=== PATIENT | male | born 2000 | race Caucasian/White ===

== ENCOUNTER 2022-03-11 15:13 | Emergency (ER) | payer OTHER, SELFPAY ==
--- NOTE | ~2022-03-11 | CT_ITS ---
EXAMINATION: CT brain wo con INDICATION: Transient alteration of awareness, head injury COMPARISON: None TECHNIQUE: Standard unenhanced head CT. The dose-length product (DLP) was 681.00 mGy-cm. The mA was a djusted according to patient size. Iterative reconstruction technique was employed. FINDINGS: There is no intracranial hemorrhage, acute infarction, or abnormal mass lesion. The ventric les are normal. There is no abnormal mass effect or midline shift. The celaya-white matter differentiat ion is normal. The basal cisterns are patent. The orbits are normal. The paranasal sinuses, mastoids and calvarium are normal. IMPRESSION: 1. No acute intracranial abnormality. Reviewed, dictated and finalized at location F.
[2022-03-11 15:18] VITALS: BP 140/109; PULSE 74; RESP 16; TEMP 36.2; O2SAT 100
--- NOTE | 2022-03-11 15:28 | ECG_ITS ---
Measurements Intervals [place] Rate: 77 P: 55 DC: 123 QRS: 93 QRSD: 102 T: 40 QT: 331 QTc: 376 Interpretive Statements SINUS RHYTHM RIGHTWARD AXIS EARLY REPOLARIZATION Electronically Signed On 03-11-2022 15:35:39 CDT by Andres Tobias M.D.
[2022-03-11 15:42] LABS: Basophils Percent Auto 0.3 % (0.2-1.2); Eosinophils Absolute Auto 0.1 K/mm3 (0-0.3); Eosinophils Percent Auto 0.8 % (0-4.4); Hemoglobin 17.1 g/dL (14.0-18.0); Immature Granulocyte Absolute 0.02 K/mm3 (0.00-0.031); Immature Granulocyte Percent A 0.3 % (0-0.5); Lymphocytes Absolute Auto 1.63 K/mm3 (0.9-3.2); Lymphocytes Percent Auto 20.8 % (18.3-44.2); Mean Corpuscular HGB Conc 34.2 g/dl (32-36); Mean Corpuscular Hemoglobin 30.3 pg (26-34); Mean Corpuscular Volume 88.5 fl (80-100); Mean Platelet Volume 9.4 fl (7.4-10.4); Monocytes Absolute Auto 0.5 K/mm3 (0.1-0.6); Monocytes Percent Auto 6.9 % (2.6-8.5); Neutrophils Absolute Auto 5.6 K/mm3 (1.3-6.7); Neutrophils Percent Auto 70.9 % (45.5-73.1); Platelet Count Result 196 k/mm3 (150-375); Red Blood Count 5.65 M/mm3 (4.6-6.20); Red Cell Distribution Width 11.9 % (11.5-14.5); White Blood Count 7.8 K/mm3 (4.5-10.0)
[2022-03-11 15:51] LABS: Alanine Aminotransferase 25 U/L (6-50); Albumin Level 4.9 g/dL (3.5-5.1); Alkaline Phosphatase 58 U/L (38-126); Anion Gap 8 mmol/L (8-16); Aspartate Amino Transferase 25 U/L (17-59); Bilirubin,Total 1.1 mg/dL (0.2-1.3); Blood Urea Nitrogen 22 mg/dL (9-20); Calcium 9.5 mg/dL (8.4-10.2); Carbon Dioxide 30 mmol/L (22-30); Chloride 102 mmol/L (98-107); Estimated CRCL calculation 111 ml/min; Estimated Glomerular Filt Rate > 60; Glucose 99 mg/dL (65-110); Potassium 4.2 mmol/L (3.4-5.0); Sodium 140 mmol/L (137-145)
[2022-03-11 19:14] LABS: Magnesium 1.7 mg/dL (1.6-2.3)
[2022-03-11 19:27] LABS: Troponin I 0.022 ng/mL (0.000-0.034)
[2022-03-11 19:30] LABS: Partial Thromboplastin Time 27.5 SECONDS (22.3-36.8); Prothrombin Time 13.2 Seconds (11.1-14.7)
--- NOTE | 2022-03-11 19:48 | ED.SYNCOPE ---
HPI - Syncope General Chief Complaint: Syncope Stated Complaint: syncope Time Seen by Provider: 03/11/22 18:07 Source: patient and family Mode of arrival: ambulatory Limitations: no limitations History of Present Illness HPI narrative: This is a 21 year old male with history of ADHD and autism who presents for evaluation of synocope. PAtient states he was smoking marijuana yesterday . He states after smoking, he states he woke up face down on the floor. He states he passed out and he woke up this his friends texting him. Patient reports he has headache since this syncopal episode. He states he has smoked many times before and he has never had this problem. He states he had syncopal episode years ago. He denies chest pain, sob, nausea, vomiting, abdominal pain. He went to work today , and his mother states she called to get patient from work. It is reported patient did not look right. He did not pass out today. Review of Systems Review of Systems: All systems reviewed & are unremarkable except as noted in HPI and below Constitutional: Constitutional: Denies chills and Denies fatigue Eyes: Eyes: Denies change in vision and Denies photophobia ENT: Denies nasal congestion and Denies sore throat Cardiovascular: Cardiovascular: Denies chest pain, Denies rapid heart rate and Denies radiating jaw, neck or arm pain Respiratory: Respiratory: Denies chest congestion, Denies cough and Denies dyspnea Gastrointestinal: Gastrointestinal: Denies abdominal pain, Denies bloating, Denies constipation and Denies heartburn Neurologic: Denies dizziness, Reports syncope and Reports headache(s) PMFSH Past Medical History Medical History (Updated 03/11/22 @ 20:50 by Yenni Clayton MD) ADHD Social History Social History (Updated 03/11/22 @ 19:53 by Yenni Clayton MD) Substance use type: marijuana Exam Narrative: GENERAL: Well-appearing, well-nourished, and in no acute distress. HEAD: Normocephalic, atraumatic EYES: PERRLA and EOMI, conjunctiva clear without discharge EARS: TM's clear bilaterally without erythema or dullness NOSE: Nares clear, no rhinorrhea or epistaxis THROAT:Mucous membranes moist, Oropharynx normal without erythema, exudate, peritonsillar swelling or fluctuance NECK: Supple, without lymphadenopathy or mass RESPIRATORY: No respiratory distress, Airway patent, Respirations non-labored, Clear to auscultation without rales, rhonchi or wheeze HEART: Regular rate and rhythm. No murmur heard. Normal peripheral pulses. ABDOMEN: Soft, nontender, nondistended, normal active bowel sounds. No masses. No rebound or guarding, No organomegaly. EXTREMITIES: No edema, normal strength with full range of motion. SKIN: Warm, dry, normal color without rash NEURO: Alert and oriented x3. CN 2-12 grossly intact. No focal deficits. PSYCH: Normal mood and affect. Course Reevaluation(s) Reevaluation #1: I Discussed with patient that labs and imaging are unremarkable. Drug screen s hows cannabis as expected. I discussed it will not show all drugs. Patient has mild headache from hitting head. He is stable for discharge. Date: 03/11/22 Time: 20:47 Vital Signs Vital signs: Vital Signs Temperature 97.2 F L 03/11/22 15:18 Pulse Rate 74 03/11/22 15:18 Respiratory Rate 16 03/11/22 15:18 Blood Pressure 140/109 H 03/11/22 15:18 Pulse Oximetry 100 03/11/22 15:18 Oxygen Delivery Room Air 03/11/22 15:18 Temperature 97.2 F L 03/11/22 15:18 Pulse Rate 64 03/11/22 21:08 Respiratory Rate 18 03/11/22 21:08 Blood Pressure 123/78 03/11/22 21:08 Pulse Oximetry 98 03/11/22 21:08 Oxygen Delivery Room Air 03/11/22 15:18 MDM - Syncope Lab Data Attestation: I reviewed the patient's lab results. Result diagrams: 03/11/22 15:32 03/11/22 15:32 Labs: Lab Results 03/11/22 03/11/22 03/11/22 Range/Units 15:32 15:32 15:32 WBC 7.8 (4.5-10.0) K/mm3
[2022-03-11 20:06] LABS: Amphetamine Screen Urine Negative (Negative); Barbiturate Screen Urine Negative (Negative); Benzodiazepines Screen Urine Negative (Negative); Cannabinoid Screen Urine Positive (Negative); Cocaine Screen Urine Negative (Negative); Methadone Screen Urine Negative (Negative); Opiate Screen Urine Negative (Negative); Phencyclidine Screen Urine Negative (Negative)
[2022-03-11 20:11] LABS: Appearance Urine Clear (Clear); Bilirubin Urine Negative (Negative); Blood Urine Negative (Negative); Glucose Urine UA Negative (Negative); Ketones Urine Negative (Negative); Leukocyte Esterase Ur Negative LEU/UL (Negative); Nitrate Urine Negative (Negative); Protein Urine Negative (Negative); Specific Grav Ur <= 1.005 (1.001-1.035); Urobilinogen Urine 0.2 mg/dL (<2.0); pH Urine 6.5 (5.0-9.0)
[2022-03-11 20:12] LABS: Add Urine Microscopic? NO; Color Urine Light Yellow (Yellow)
[2022-03-11 20:24] LABS: D Dimer < 0.27 ug/mL (<0.48)
[2022-03-11 20:35] VITALS: BP 129/74; PULSE 59
[2022-03-11 20:36] VITALS: BP 147/89; PULSE 67
[2022-03-11 20:37] VITALS: BP 132/85; PULSE 77
[2022-03-11 21:08] VITALS: BP 123/78; PULSE 64; RESP 18; O2SAT 98
== END 2022-03-11 21:07 | disposition home or self-care (01) ==
PROVIDERS: Emergency Medicine; Emergency Provider General Practice
DX: R55 Syncope and collapse (principal); S09.90XA Unspecified injury of head, initial encounter; F12.10 Cannabis abuse, uncomplicated; F90.9 Attention-deficit hyperactivity disorder, unspecified type; F84.0 Autistic disorder; W18.39XA Other fall on same level, initial encounter
CPT/HCPCS: 36415; 70450; 80053; 80307; 81003; 83735; 84484; 85025; 85380; 85610; 85730; 93005; 99284

== ENCOUNTER 2023-05-17 19:02 | Emergency (ER) | payer OTHER, SELFPAY ==
--- NOTE | ~2023-05-17 | XR_ITS ---
EXAMINATION: XR chest 1V portable Exam Date/Time: 05/17/2023 19:50 CDT HISTORY: cough- pt sts generalized pain to whole body Comparison: None. RESULT: Lines, tubes, and devices: None. Lungs and pleura: Clear. Cardiomediastinal silhouette: Normal. Other: No acute osseous or upper abdominal finding. IMPRESSION: No acute cardiopulmonary process. Reviewed, dictated and finalized at location K.
[2023-05-17 19:04] VITALS: BP 147/86; PULSE 91; RESP 20; TEMP 36.9; O2SAT 100
--- NOTE | 2023-05-17 19:54 | ED.FEVER ---
HPI - Fever General Chief Complaint: Fever Stated Complaint: fever, neck pain Time Seen by Provider: 05/17/23 19:26 Source: patient and RN notes reviewed Mode of arrival: ambulatory Limitations: no limitations History of Present Illness HPI Narrative: This is a 22 year old male who presents for evaluation of fever. Patient reports starting yesterday he has been having chills, subjective fever. He also reports sore throat, cough, congestion. He has body aches. He reports his boss has been coughing and has URI symptoms, but he has not gone for evaluation. PAtient has not been taking any medication for his symptoms. Related Data Allergies Allergy/AdvReac Type Severity Reaction Status Date / Time No Known Allergies Allergy Verified 05/17/23 20:16 Review of Systems Constitutional: Constitutional: Reports chills, Reports fever(s) (subjective) and Denies weakness ENT: Reports sore throat Cardiovascular: Cardiovascular: Denies syncope, Denies rapid heart rate, Denies irregular heart rhythm, Denies leg edema and Denies dyspnea Respiratory: Respiratory: Reports chest congestion, Reports cough, Denies hemoptysis, Denies excessive phlegm production and Denies dyspnea Gastrointestinal: Gastrointestinal: Denies abdominal pain, Denies hematochezia, Denies diarrhea and Denies vomiting Genitourinary: Genitourinary: Denies hematuria, Denies dysuria, Denies penile discharge and Denies testicular pain Musculoskeletal: Musculoskeletal: Reports myalgias, Denies joint swelling, Denies loss of height and Denies muscle weakness Neurologic: Denies syncope, Denies focal weakness and Denies weakness PMFSH Past Medical History Medical History ADHD Social History Social History Substance use type: marijuana Exam Const: General: no acute distress and alert Nutritional Appearance: well nourished Orientation/consciousness: patient oriented x3 Limitations: no limitations Other: appears to feel unwell HENMT: Head: normal to inspection Ears: external ears normal and TM's normal bilaterally Face/Nose/Sinus: Normal external nose present Face and sinus: normal facial exam and sinuses nontender Mouth: Yes Normal oral and palatal mucosa present, Yes lip normal and Yes moist mucous membranes Teeth and gingiva: dentition normal Throat: posterior oropharynx normal and uvula midline Eyes: Pupils: Equal, round and reactive pupils present EOM: EOMs intact bilaterally Neck: Neck: normal visual inspection Chest: Chest palpation & inspection: normal inspection of the chest Resp: Effort & Inspection: normal respiratory effort Auscultation: clear to auscultation bilaterally Cardio: Rate: regular rate Rhythm: regular rhythm Heart sounds: no murmurs GI: GI Palp: Yes Soft to palpation, No Tenderness to palpation present (GI), No Guarding due to palpation present (GI) and No Rigid due to palpation Auscultation: normal bowel sounds Skin: General skin exam: normal color Rashes: no rashes Wounds: no wounds Neuro: General: patient oriented x3, moves all extremities and CN's II-XI intact bilaterally Extrem: General: normal to inspection Psych: Appearance: grossly normal Mental Status: mental status grossly normal Affect: normal affect Attitude: cooperative Course Reevaluation(s) Reevaluation #1: I discussed with patient that he was found to be COVID + . I Discussed symptom management. He would like prescription for paxlovid. Date: 05/17/23 Time: 20:54 Vital Signs Vital signs: Vital Signs Temperature 98.4 F 05/17/23 19:04 Pulse Rate 91 05/17/23 19:04 Respiratory Rate 20 05/17/23 19:04 Blood Pressure 147/86 H 05/17/23 19:04 Pulse Oximetry 100 05/17/23 19:04 Oxygen Delivery Room Air 05/17/23 19:04 Temperature 98.4 F 05/17/23 19:04 Pulse Rate 91 05/17/23 19:04 Respiratory Rate 20
[2023-05-17 20:09] LABS: Influenza A QL RT-PCR Negative (Negative); Influenza B QL RT-PCR Negative (Negative); SARS-CoV-2 RNA PCR Positive (Negative)
[2023-05-17] MEDS: KETOROLAC (*BKC) 60 MG/2 ML VIAL IM (20:16)
[2023-05-17] MEDS: Please add drug allergy info to patient profile. 1 EACH XX (20:16)
[2023-05-17 20:48] LABS: Strep Group A RT-PCR NOT DETECTED (Negative)
== END 2023-05-17 21:31 | disposition home or self-care (01) ==
PROVIDERS: Student in an Organized Health Care Education/Training Program; Emergency Provider General Practice
DX: U07.1 COVID-19 (principal)
CPT/HCPCS: 71045; 87636; 87651; 96372; 99283; J1885

== ENCOUNTER 2023-11-23 17:34 | Emergency (ER) | payer OTHER, SELFPAY ==
[2023-11-23 17:39] VITALS: BP 130/87; PULSE 100; RESP 20; TEMP 36.5; O2SAT 100
--- NOTE | 2023-11-23 21:44 | PC.NURSE ---
Pt's name was called twice to be taken back to a room and did not show up.
== END 2023-11-23 21:57 | disposition left against medical advice (07) ==
LOC: ANHED 21:47
DX: R51.9 Headache, unspecified (principal)
CPT/HCPCS: 99199

== ENCOUNTER 2023-12-16 11:59 | Emergency (ER) | payer OTHER, SELFPAY ==
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
[2023-12-16 12:05] VITALS: BP 143/88; PULSE 73; RESP 16; TEMP 36.4; O2SAT 100
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
[2023-12-16] MEDS: ACETAMINOPHEN 325 MG TABLET 650 MG PO (13:17)
[2023-12-16] MEDS: HYDROcodone/acetaminophen (*CRX) 5-325 MG TABLET 1 TAB PO (13:17)
--- NOTE | 2023-12-16 14:51 | PC.NURSE ---
Incentive spirometer educated by RT
== END 2023-12-16 14:57 | disposition home or self-care (01) ==
PROVIDERS: Emergency Provider Student in an Organized Health Care Education/Training Program
DX: S22.32XA Fracture of one rib, left side, initial encounter for closed fracture (principal); V43.53XA Car driver injured in collision with pick-up truck in traffic accident, initial encounter; Y92.411 Interstate highway as the place of occurrence of the external cause
CPT/HCPCS: 71100; 73030; 73610; 99284; A9270

== ENCOUNTER 2024-03-04 22:19 | Emergency (ER) | payer OTHER, SELFPAY ==
[2024-03-04] VITALS (8 sets, daily range): BP systolic 121–130; BP diastolic 76–78; PULSE 53–81; RESP 12–24; O2SAT 95–100
--- NOTE | ~2024-03-04 | XR_ITS ---
EXAMINATION: XR chest 2V DATE: 03/04/2024 22:41 INDICATION: Chest pain. Anxiety. TECHNIQUE: Frontal and lateral views of the chest were obtained. COMPARISON: Chest single view 05/17/2023 FINDINGS: There is no pneumonia, pleural effusion, or pneumothorax. The heart size is normal. IMPRESSION: 1. No acute cardiopulmonary disease. Reviewed, dictated and finalized at location E.
--- NOTE | 2024-03-04 22:27 | ECG_ITS ---
SEE SCANNED COPY FOR CONFIRMED REPORT MTDD
[2024-03-04 22:37] LABS: Basophils Percent Auto 0.6 % (0.2-1.2); Eosinophils Absolute Auto 0.1 K/mm3 (0-0.3); Eosinophils Percent Auto 2.3 % (0-4.4); Hematocrit 45.3 % (42.0-52.0); Hemoglobin 16.4 g/dL (14.0-18.0); Immature Granulocyte Absolute 0.01 K/mm3 (0.00-0.031); Immature Granulocyte Percent A 0.2 % (0-0.5); Lymphocytes Absolute Auto 1.78 K/mm3 (0.9-3.2); Mean Corpuscular HGB Conc 36.2 g/dl (32-36); Mean Corpuscular Hemoglobin 31.8 pg (26-34); Mean Platelet Volume 9.7 fl (7.4-10.4); Monocytes Absolute Auto 0.4 K/mm3 (0.1-0.6); Monocytes Percent Auto 8.2 % (2.6-8.5); Neutrophils Absolute Auto 2.9 K/mm3 (1.3-6.7); Neutrophils Percent Auto 54.7 % (45.5-73.1); Platelet Count Result 223 k/mm3 (150-375); Red Blood Count 5.15 M/mm3 (4.6-6.20); Red Cell Distribution Width 11.7 % (11.5-14.5); White Blood Count 5.2 K/mm3 (4.5-10.0)
[2024-03-04 22:48] LABS: Prothrombin Time 13.9 Seconds (11.1-14.7)
[2024-03-04 22:49] LABS: Partial Thromboplastin Time 28.1 Seconds (22.3-36.8)
[2024-03-04 22:53] LABS: Alanine Aminotransferase 18 U/L (6-50); Albumin Level 4.5 g/dL (3.5-5.1); Alkaline Phosphatase 40 U/L (38-126); Anion Gap 6 mmol/L (4-12); Aspartate Amino Transferase 21 U/L (17-59); Bilirubin,Total 2.2 mg/dL (0.2-1.3); Blood Urea Nitrogen 11 mg/dL (9-20); Calcium 9.6 mg/dL (8.4-10.2); Carbon Dioxide 27 mmol/L (22-30); Chloride 106 mmol/L (98-107); Estimated CRCL calculation 100 ml/min; Estimated Glomerular Filt Rate > 60; Glucose 92 mg/dL (65-110); Lipase 82 U/L (23-300); Potassium 3.7 mmol/L (3.4-5.0); Sodium 139 mmol/L (137-145)
[2024-03-04 23:05] LABS: Troponin I 0.018 ng/mL (0.000-0.034)
--- NOTE | 2024-03-04 23:23 | PC.NURSE ---
2314 Patients mother Ivy calls to inform this RN that the patient has a seeking problem. That he has a problem abusing muscle relaxers, pain pills and alcohol. I have been trying to get him into rehab but he won't go. This RN notified ERP of patients mothers statements. Patients mother also states he has gone to [facility] as well for those medications in the past.
[2024-03-04 23:46] LABS: Influenza A QL RT-PCR Negative (Negative); Influenza B QL RT-PCR Negative (Negative); RSV RNA, RT-PCR Negative (Negative); SARS-CoV-2 RNA PCR Negative (Negative)
[2024-03-04 23:50] LABS: Appearance Urine Clear (Clear); Bilirubin Urine Negative (Negative); Blood Urine Negative (Negative); Color Urine Yellow (Yellow); Glucose Urine UA Negative (Negative); Ketones Urine Negative (Negative); Leukocyte Esterase Ur Negative LEU/UL (Negative); Nitrate Urine Negative (Negative); Protein Urine Negative (Negative); Specific Grav Ur 1.005 (1.001-1.035); pH Urine 6.5 (5.0-9.0)
[2024-03-04 23:52] LABS: Add Urine Microscopic? NO
[2024-03-05] VITALS (13 sets, daily range): BP systolic 124–132; BP diastolic 74–86; PULSE 46–63; RESP 17–24; O2SAT 97–99
[2024-03-05 00:06] LABS: Barbiturate Screen Urine Negative (Negative); Benzodiazepines Screen Urine Negative (Negative)
[2024-03-05 00:10] LABS: Cannabinoid Screen Urine Positive (Negative); Cocaine Screen Urine Negative (Negative); Methadone Screen Urine Negative (Negative); Opiate Screen Urine Negative (Negative); Phencyclidine Screen Urine Negative (Negative)
[2024-03-05] MEDS: BELLADONNA ALK/PHENOB ELIX 10 ML, MAG HYDROX/ALUMINUM HYD/SIMETH 30 ML, LIDOCAINE HCL 2... PO (00:17)
[2024-03-05 00:46] LABS: Amphetamine Screen Urine Positive (Negative)
[2024-03-05 01:02] LABS: D Dimer < 0.27 ug/mL (<0.48)
[2024-03-05 01:16] LABS: Creatine Kinase 157 U/L (55-170)
--- NOTE | 2024-03-05 01:33 | PC.NURSE ---
Patient's mother Ivy calls to give information that we went through his car and he had either meth or crack or cocaine. I had the police come get it. ERP notified.
--- NOTE | 2024-03-05 01:44 | ED.CHESTPAIN ---
HPI - Chest Pain General Chief Complaint: Chest Pain Stated Complaint: abnormal Time Seen by Provider: 03/04/24 22:23 Source: patient and family Mode of arrival: ambulatory Limitations: no limitations History of Present Illness HPI narrative: Patient is a 23-year-old male who presents the ED with multiple complaints. Patient speaking rapidly and difficult to follow conversation. He complains of pain to his left mid chest that began and approximately 4 hours prior to his arrival. No aggravating or relieving factors the pain. No history of cardiac issues. He also reports having pain in his left upper abdomen, described as though his stomach feels empty. He does state that he has not eaten anything today. He further complains of shortness of breath, occasionally worse with exertion but states he took a 2 mi walk earlier today and he did not feel short of breath at that time. He endorses palpitations and feeling as though his heart is racing, weakness, general malaise, anxiety. He does have history of anxiety and states he has been off of his medications for the past 2 years. Unclear why. Denies SI or HI. Denies fevers, cough or cold sx's, BLE pain or swelling. Patient's mother has contacted the ED twice. She informed ED nurse that patient frequents hospitals and has exhibited drug-seeking behavior in the past. She has notified several hospitals of this, stating he will attempt to obtain pain medication, muscle relaxers, anxiety medication. Mother later called to inform ED nurse that she found a bag of drug-like powder/substance found in patient's car and she notified police of this. Police believed to the bag to contain methamphetamines. Related Data Allergies Allergy/AdvReac Type Severity Reaction Status Date / Time No Known Allergies Allergy Verified 05/17/23 20:16 Review of Systems Review of Systems: CONSTITUTIONAL: Denies fever, chills, or sweats. ENT: Denies rhinorrhea, congestion, sore throat. CARDIOVASCULAR: See HPI. RESPIRATORY: See HPI. GASTROINTESTINAL: See HPI NEUROLOGIC: Denies headache, dizziness, numbness, or weakness. PSYCHIATRIC: See HPI All systems reviewed & are unremarkable except as noted in HPI and below PMFSH Past Medical History Medical History ADHD Autism Wears glasses Social History Social History Substance use type: marijuana Exam Narrative: GENERAL: Anxious appearing, well-nourished, non-toxic, in no acute distress. HEAD: Normocephalic, atraumatic. RESPIRATORY: Airway patent, respirations nonlabored. Clear to auscultation bilaterally, no rales, rhonchi, wheezing. CARDIOVASCULAR: Regular rate and rhythm without murmurs, rubs, or gallops. ABDOMINAL: Soft, no significant focal tenderness. Nondistended. Normoactive BS. MUSCULOSKELETAL: Moves all extremities. No gross deformities. No lower extremity edema. No calf tenderness. SKIN: Warm, dry, normal color. NEURO: A&O X3. Speech clear. Cranial nerves II-XII grossly intact. Steady gait. No ataxic movements. PSYCHIATRIC: Anxious, rapid pressured speech, tangential thoughts. Course Vital Signs Vital signs: Vital Signs Pulse Rate 76 03/04/24 22:22 Respiratory Rate 15 03/04/24 22:22 Blood Pressure 130/76 03/04/24 22:22 Pulse Oximetry 97 03/04/24 22:22 Oxygen Delivery Room Air 03/04/24 22:22 Pulse Rate 56 L 03/05/24 00:45 Respiratory Rate 22 H 03/05/24 00:45 Blood Pressure 121/78 03/04/24 23:28 Pulse Oximetry 98 03/05/24 00:45 Oxygen Delivery Room Air 03/05/24 00:19 MDM - Chest Pain MDM Narrative Medical decision making narrative: Patient presented to ED with multiple complaints, chest pain, abdominal pain, generalized weakness, palpitations. Patient anxious appearing, rapid pressured speech. Exam fairly unremarkable. No significant tenderness throughout abdomen. VSS. N
[2024-03-05 02:04] LABS: Troponin I 0.017 ng/mL (0.000-0.034)
== END 2024-03-05 02:44 | disposition home or self-care (01) ==
PROVIDERS: Student in an Organized Health Care Education/Training Program; Emergency Provider Physician Assistant
DX: R07.89 Other chest pain (principal); R00.2 Palpitations; F15.10 Other stimulant abuse, uncomplicated; Z20.822 Contact with and (suspected) exposure to COVID-19; F84.0 Autistic disorder
CPT/HCPCS: 36415; 71046; 80053; 80307; 81003; 82550; 83690; 83735; 84484; 85025; 85380; 85610; 85730; 87637; 93005; 99284; A9270

== ENCOUNTER 2024-07-08 15:17 | Emergency (ER) | payer SELFPAY ==
[2024-07-08 15:11] VITALS: BP 114/72; PULSE 92; RESP 20; TEMP 36.3; O2SAT 99
[2024-07-08 15:52] LABS: Basophils Percent Auto 0.5 % (0.2-1.2); Eosinophils Absolute Auto 0.1 K/mm3 (0-0.3); Eosinophils Percent Auto 2.1 % (0-4.4); Hematocrit 44.6 % (42.0-52.0); Hemoglobin 15.9 g/dL (14.0-18.0); Immature Granulocyte Absolute 0.01 K/mm3 (0.00-0.031); Immature Granulocyte Percent A 0.2 % (0-0.5); Lymphocytes Absolute Auto 1.66 K/mm3 (0.9-3.2); Lymphocytes Percent Auto 26.9 % (18.3-44.2); Mean Corpuscular HGB Conc 35.7 g/dl (32-36); Mean Corpuscular Hemoglobin 31.9 pg (26-34); Mean Corpuscular Volume 89.6 fl (80-100); Mean Platelet Volume 9.8 fl (7.4-10.4); Monocytes Absolute Auto 0.6 K/mm3 (0.1-0.6); Monocytes Percent Auto 9.1 % (2.6-8.5); Neutrophils Absolute Auto 3.8 K/mm3 (1.3-6.7); Neutrophils Percent Auto 61.2 % (45.5-73.1); Platelet Count Result 204 k/mm3 (150-375); Red Blood Count 4.98 M/mm3 (4.6-6.20); Red Cell Distribution Width 11.8 % (11.5-14.5); White Blood Count 6.2 K/mm3 (4.5-10.0)
[2024-07-08 15:54] LABS: Add Urine Microscopic? YES; Appearance Urine Clear (Clear); Bacteria Urine None Seen /hpf; Bilirubin Urine Negative (Negative); Blood Urine Negative (Negative); Color Urine Yellow (Yellow); Glucose Urine UA Negative (Negative); Ketones Urine Trace mg/dL (Negative); Leukocyte Esterase Ur Negative LEU/UL (Negative); Nitrate Urine Negative (Negative); Non Pathogenic Casts 0-2; Protein Urine Trace mg/dL (Negative); RBC Urine 0-2 /hpf (0-2); Specific Grav Ur 1.025 (1.001-1.035); Squamous Epithelial Cell Urine None Seen /hpf (Few); WBC Urine 0-5 /hpf (0-3)
[2024-07-08 15:59] LABS: Ethanol < 10 mg/dL (<10)
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
[2024-07-08 16:07] LABS: Alanine Aminotransferase 19 U/L (6-50); Albumin Level 4.6 g/dL (3.5-5.1); Alkaline Phosphatase 41 U/L (38-126); Anion Gap 10 mmol/L (4-12); Aspartate Amino Transferase 29 U/L (17-59); Blood Urea Nitrogen 20 mg/dL (9-20); Calcium 9.4 mg/dL (8.4-10.2); Carbon Dioxide 26 mmol/L (22-30); Chloride 104 mmol/L (98-107); Estimated CRCL calculation 109 ml/min; Estimated Glomerular Filt Rate > 60; Glucose 82 mg/dL (65-110); Potassium 4.3 mmol/L (3.4-5.0); Sodium 140 mmol/L (137-145)
[2024-07-08 16:09] LABS: Barbiturate Screen Urine Negative (Negative); Benzodiazepines Screen Urine Negative (Negative)
[2024-07-08 16:13] LABS: Cannabinoid Screen Urine Positive (Negative); Cocaine Screen Urine Negative (Negative); Methadone Screen Urine Negative (Negative); Opiate Screen Urine Negative (Negative); Phencyclidine Screen Urine Negative (Negative)
[2024-07-08 16:28] LABS: Influenza A QL RT-PCR Negative (Negative); Influenza B QL RT-PCR Negative (Negative); RSV RNA, RT-PCR Negative (Negative); SARS-CoV-2 RNA PCR Negative (Negative)
--- NOTE | 2024-07-08 16:35 | ED.PSYCH ---
HPI - Psych General Chief Complaint: Psychiatric Symptoms Stated Complaint: SI w/ plan Time Seen by Provider: 07/08/24 15:34 Source: patient and EMS Mode of arrival: EMS Limitations: other (poor historian) History of Present Illness HPI Narrative: This is a 23 year old male that presents to the ER for suicidal ideation. Reportedly patient was fired from his job. He started acting erratic. PD was called. He was stating over and over that he wished he was . Reports he would walk in front of a semi. Patient reports using marijuana and amphetamines. No previous attempts at self harm or psychiatric hospitalizations. Related Data Allergies Allergy/AdvReac Type Severity Reaction Status Date / Time No Known Allergies Allergy Verified 05/17/23 20:16 Review of Systems Review of Systems: CONSTITUTIONAL: Denies fever PSYCHIATRIC: Reports anxiety and depression. All systems reviewed & are unremarkable except as noted in HPI and below PMFSH Past Medical History Medical History ADHD Autism Wears glasses Social History Social History Substance use type: marijuana Exam Narrative: GENERAL: Well-appearing, well-nourished, and in no acute distress. HEAD: Normocephalic, atraumatic. EYES: EOMI. CHEST: No respiratory distress. HEART: Regular rate EXTREMITIES: Normal range of motion. No edema. SKIN: Warm, dry, no rash. NEURO: No focal deficits. Alert and oriented x3. PSYCH: Depressed mood and affect Course Course Emergency Course: Patient medically cleared for evaluation by crisis Consultations Consultation #1: Patient evaluated by crisis. Safety plan in place and patient given resources. Patient's mother in agreement with plan Date: 07/08/24 Vital Signs Vital signs: Vital Signs Temperature 97.4 F L 07/08/24 15:11 Pulse Rate 92 07/08/24 15:11 Respiratory Rate 20 07/08/24 15:11 Blood Pressure 114/72 07/08/24 15:11 Pulse Oximetry 99 07/08/24 15:11 Oxygen Delivery Room Air 07/08/24 15:11 Temperature 97.4 F L 07/08/24 15:11 Pulse Rate 92 07/08/24 15:11 Respiratory Rate 20 07/08/24 15:11 Blood Pressure 114/72 07/08/24 15:11 Pulse Oximetry 99 07/08/24 15:11 Oxygen Delivery Room Air 07/08/24 15:11 MDM - Psych MDM Narrative Medical decision making narrative: Patient presents to the emergency department after reporting to police that he wished he was . He was fired from his job today. No previous attempts at self-harm or psychiatric hospitalizations. No concerning findings on blood workup. Drug screen was positive for amphetamines and cannabinoids. Alcohol level negative. Patient was medically cleared for evaluation by crisis. He is no longer reporting suicidal ideation. He has a safety plan in place and was given resources. Patient's mother is in agreement with plan. He was given warnings to return to the ER Differential Diagnosis Differential diagnosis: Likely suicidal ideation, depression and acute anxiety Lab Data Attestation: I reviewed the patient's lab results. 07/08/24 15:39 07/08/24 15:39 Labs: Lab Results 07/08/24 Range/Units 15:39 WBC 6.2 (4.5-10.0) K/mm3 RBC 4.98 (4.6-6.20) M/mm3 Hgb 15.9 (14.0-18.0) g/dL Hct 44.6 (42.0-52.0) % MCV 89.6 (80-100) fl MCH 31.9 (26-34) pg MCHC 35.7 (32-36) g/dl RDW 11.8 (11.5-14.5) % Plt Count 204 (150-375) k/mm3 MPV 9.8 (7.4-10.4) fl Immature Gran % (Auto) 0.2 (0-0.5) % Neut % (Auto) 61.2 (45.5-73.1) % Lymph % (Auto) 26.9 (18.3-44.2) % [place] % (Auto) 9.1 H (2.6-8.5) % Eos % (Auto) 2.1 (0-4.4) % Baso % (Auto) 0.5 (0.2-1.2) % Lymph # (Auto) 1.66 (0.9-3.2) K/mm3 [place] # (Auto) 0.6 (0.1-0.6) K/mm3 Eos # (Auto) 0.1 (0-0.3) K/mm3 Baso # (Auto) 0.0 (0.0-0.1) K/mm3 Abs Immat Gran (auto) 0.01 (
[2024-07-08 16:47] LABS: Amphetamine Screen Urine Positive (Negative)
[2024-07-08 21:55] VITALS: PULSE 67; RESP 18; TEMP 36.6; O2SAT 100
== END 2024-07-08 21:55 | disposition home or self-care (01) ==
PROVIDERS: Emergency Medicine; Emergency Provider Physician Assistant
DX: F43.9 Reaction to severe stress, unspecified (principal); Z11.52 Encounter for screening for COVID-19; F84.0 Autistic disorder
CPT/HCPCS: 36415; 80053; 80307; 81001; 84443; 85025; 87637; 99284

== ENCOUNTER 2024-09-24 20:47 | Emergency (ER) | payer SELFPAY ==
--- NOTE | ~2024-09-24 | XR_ITS ---
EXAMINATION: XR chest 2V Exam Date/Time: 09/24/2024 21:32 CAD PROGRAMMER HISTORY: chest pain / COUGH Comparison: 03/04/2024. RESULT: Lines, tubes, and devices: None. Lungs and pleura: Subsegmental right suprahilar opacity. Cardiomediastinal silhouette: Stable. Other: No acute osseous or upper abdominal finding. IMPRESSION: Subsegmental right suprahilar opacity may represent perihilar atelectasis or the consolidation of pne umonia. Recommend radiographic follow-up to ensure resolution. Reviewed, dictated and finalized at location K. PROGRAMMER IMPRESSION: Subsegmental right suprahilar opacity may represent perihilar atelectasis or th e consolidation of pneumonia. Recommend radiographic follow-up to ensure resolu tion.
--- NOTE | ~2024-09-24 | CT_ITS ---
Clinical Indication: Shortness of breath, cough CT Scan of the Chest with Contrast: Technique: Contiguous sections were acquired throughout the chest after intravenous administration of 75 cc of Omnipaque 350. Dose reduction technique was used on this scan by utilizing automated exposu re control and iterative reconstruction technique. The dose-length product (DLP) was 160.38 mGy-cm. Findings: There is no evidence of any significant mediastinal, hilar or axillary lymphadenopathy. There is no f illing defect in the pulmonary arterial tree to suggest pulmonary embolus. There is no evidence of ao rtic dissection or aneurysm. There is no evidence of pleural or pericardial effusion. There is patchy airspace disease in the anterior, inferior right upper lobe, compatible with pneumoni a. There is additional patchy airspace disease in the left lower lobe, compatible with additional pne umonia. Images through the upper abdomen reveal no abnormalities. Impression: Patchy pneumonia in the right upper lobe and left lower lobe, as detailed above. Reviewed, dictated and finalized at location . ATION AGENT Impression: Patchy pneumonia in the right upper lobe and left lower lobe, as detailed above .
--- NOTE | 2024-09-24 20:50 | ECG_ITS ---
Test Date: 2024-09-24 20:57:33 Measurements Intervals [place] Rate: 77 P: 73 [place]: 126 QRS: 94 QRSD: 103 T: 67 QT: 339 QTc: 385 Interpretive Statements SINUS RHYTHM BORDERLINE RIGHT AXIS DEVIATION [QRS AXIS > 90] No previous ECG available for comparison Electronically Signed On 09-24-2024 22:02:52 ORTHODONTIC LAB TECHNICIAN by Haritha Stanley M.D.
[2024-09-24 20:59] VITALS: BP 121/86; PULSE 83; RESP 22; TEMP 36.8; O2SAT 98
[2024-09-24 21:33] LABS: Basophils Percent Auto 0.3 % (0.2-1.2); Eosinophils Absolute Auto 0.1 K/mm3 (0-0.3); Eosinophils Percent Auto 1.6 % (0-4.4); Hemoglobin 15.2 g/dL (14.0-18.0); Immature Granulocyte Absolute 0.02 K/mm3 (0.00-0.031); Immature Granulocyte Percent A 0.3 % (0-0.5); Lymphocytes Absolute Auto 0.97 K/mm3 (0.9-3.2); Lymphocytes Percent Auto 15.4 % (18.3-44.2); Mean Corpuscular HGB Conc 36.2 g/dl (32-36); Mean Corpuscular Hemoglobin 31.7 pg (26-34); Mean Corpuscular Volume 87.7 fl (80-100); Mean Platelet Volume 9.4 fl (7.4-10.4); Monocytes Absolute Auto 0.7 K/mm3 (0.1-0.6); Monocytes Percent Auto 11.3 % (2.6-8.5); Neutrophils Absolute Auto 4.5 K/mm3 (1.3-6.7); Neutrophils Percent Auto 71.1 % (45.5-73.1); Platelet Count Result 173 k/mm3 (150-375); Red Blood Count 4.79 M/mm3 (4.6-6.20); Red Cell Distribution Width 11.9 % (11.5-14.5); White Blood Count 6.3 K/mm3 (4.5-10.0)
--- NOTE | 2024-09-24 21:39 | PC.NURSE ---
patient is back from radiology at this time.
[2024-09-24 21:44] LABS: Alanine Aminotransferase 17 U/L (6-50); Alkaline Phosphatase 52 U/L (38-126); Anion Gap 6 mmol/L (4-12); Aspartate Amino Transferase 22 U/L (17-59); Bilirubin,Total 1.4 mg/dL (0.2-1.3); Blood Urea Nitrogen 11 mg/dL (9-20); Calcium 8.6 mg/dL (8.4-10.2); Carbon Dioxide 27 mmol/L (22-30); Chloride 104 mmol/L (98-107); Estimated Glomerular Filt Rate > 60; Glucose 107 mg/dL (65-110); Lipase 225 U/L (23-300); Potassium 3.8 mmol/L (3.4-5.0); Sodium 137 mmol/L (137-145)
[2024-09-24 21:46] LABS: Prothrombin Time 13.7 Seconds (11.1-14.7)
[2024-09-24 21:46] LABS: Influenza A QL RT-PCR Negative (Negative); Influenza B QL RT-PCR Negative (Negative); RSV RNA, RT-PCR Negative (Negative); SARS-CoV-2 RNA PCR Negative (Negative)
[2024-09-24 21:47] LABS: Partial Thromboplastin Time 30.1 Seconds (22.3-36.8)
[2024-09-24 21:55] LABS: Troponin I 0.018 ng/mL (0.000-0.034)
--- NOTE | 2024-09-24 22:16 | ED_ITS ---
HPI - Chest Pain General Chief Complaint: Chest Pain Stated Complaint: sore throat, chest pain Time Seen by Provider: 09/24/24 21:30 History of Present Illness HPI narrative: Patient is a 24-year-old male who presents to the ER with 2 week history of chest pain and cough. He reports the chest pain was his 1st symptom followed by a sore throat. Patient denies any fevers but reports my head felt warm earlier today. He reports he has a history of ADHD and meth use, but denies any COPD or asthma history. Patient reports my whole body hurts. He endorses wheezing, mild shortness of breath, and congestion. Related Data Allergies Allergy/AdvReac Type Severity Reaction Status Date / Time No Known Allergies Allergy Verified 05/17/23 20:16 Review of Systems 2 Review of Systems: All systems reviewed & are unremarkable except as noted in HPI and below PMFSH Past Medical History Medical History Wears glasses Autism ADHD Social History Social History Substance use type: marijuana Exam 2 Narrative: GENERAL: Well appearing, well-nourished, non-toxic, in no acute distress. HEAD: Normocephalic, atraumatic. NECK: Supple. No adenopathy, no masses. RESPIRATORY: Airway patent, respirations nonlabored. Clear to auscultation bilaterally, no rales, rhonchi, wheezing. CARDIOVASCULAR: Regular rate and rhythm without murmurs, rubs, or gallops. Peripheral pulses 2+ and equal bilaterally. ABDOMINAL: Soft, nontender, nondistended, no hepatosplenomegaly. Normoactive BS. MUSCULOSKELETAL: Moves all extremities. Strength/ROM intact without gross deformities. SKIN: Warm, dry, normal color. No rashes. NEURO: A&O X3. Speech clear. Cranial nerves II-XII grossly intact. No ataxic movements. PSYCHIATRIC: Appropriate mood and affect. Normal interaction. Course Vital Signs Vital signs: Vital Signs Temperature 36.8 C 09/24/24 20:59 Pulse Rate 83 09/24/24 20:59 Respiratory Rate 22 H 09/24/24 20:59 Blood Pressure 121/86 09/24/24 20:59 Pulse Oximetry 98 09/24/24 20:59 Temperature 36.8 C 09/24/24 20:59 Pulse Rate 76 09/25/24 00:17 Respiratory Rate 18 09/25/24 00:17 Blood Pressure 121/86 09/24/24 20:59 Pulse Oximetry 98 09/24/24 20:59 MDM - Chest Pain MDM Narrative Medical decision making narrative: Patient is a 24-year-old male who presents to the ER with 2 week history of chest pain and cough. He reports the chest pain was his 1st symptom followed by a sore throat. Patient denies any fevers but reports my head felt warm earlier today. He reports he has a history of ADHD and meth use, but denies any COPD or asthma history. Patient reports my whole body hurts. He endorses wheezing, mild shortness of breath, and congestion. Patient does endorse previous methamphetamine use, along with daily marijuana use. Labs Ordered: CBC, CMP, troponin, INR, PTT, lipase, strep swab, COVID/flu/RSV swab Imaging Ordered: chest XR, CT diagnostic chest scan Results: Pt's chest x-ray indicates Subsegmental right suprahilar opacity may represent perihilar atelectasis or the consolidation of pneumonia. Recommend radiographic follow-up to ensure resolution. Pt's chest CT scan indicates R middle lobe and L lower lobe multilobar pneumonia. Diagnosis: community acquired pneumonia Patient Education/Shared MDM: Results shared with the patient. He will be given his 1st dose of antibiotics here in the ER, then given a prescription for outpatient antibiotics. Patient should follow-up with his primary care provider the next 2-3 days. He verbalizes understanding and is in agreement with plan. All questions answered. Vital signs stable at time of discharge. Differential Diagnosis Differential diagnosis: Likely atypical chest pain, st elevation myocardial infarction, costochondritis, chest pain and other (pneumonia) Lab Data Attestation: I reviewed the patient's lab results. 09/24/24 21:13 09/24/24 21:13 Labs: Lab Results 09/24/24 09/24/24 09/25/24 Range/Units 21:00 21:13 00:07 WBC 6.3 (4.5-10.0) K/mm3 RBC 4.79 (4.6-6.20) M/mm3 Hgb 15.2 (14.0-18.0) g/dL Hct 42.0 (42.0-52.0) % MCV 87.7 (80-100) fl MCH 31.7 (26-34) pg MCHC 36.2 H (32-36) g/dl RDW 11.9 (11.5-14.5) % Plt Count 173 (150-375) k/mm3 MPV 9.4 (7.4-10.4) fl Immature Gran % (Auto) 0.3 (0-0.5) % Neut % (Auto) 71.1 (45.5-73.1) % Lymph % (Auto) 15.4 L (18.3-44.2) % [place] % (Auto) 11.3 H (2.6-8.5) % Eos % (Auto) 1.6 (0-4.4) % Baso % (Auto) 0.3 (0.2-1.2) % Lymph # (Auto) 0.97 (0.9-3.2) K/mm3 [place] # (Auto) 0.7 H (0.1-0.6) K/mm3 Eos # (Auto) 0.1 (0-0.3) K/mm3 Baso # (Auto) 0.0 (0.0-0.1) K/mm3 Abs Immat Gran (auto) 0.02 (0.00-0.031) K/mm3 Absolute Neuts (auto) 4.5 (1.3-6.7) K/mm3 Absolute Nucleated RBC 0.000 (0.0-0.012) K/mm3 Nucleated RBC % 0.0 (0.0-0.2) % PT 13.7 (11.1-14.7) Seconds INR 1.0 APTT 30.1 (22.3-36.8) Seconds Sodium 137 (137-145) mmol/L Potassium 3.8 (3.4-5.0) mmol/L Chloride 104 (98-107) mmol/L Carbon Dioxide 27 (22-30) mmol/L Anion Gap 6 (4-12) mmol/L BUN 11 D (9-20) mg/dL Creatinine 0.90 (0.7-1.3) mg/dL Estim Creat Clear Calc Not Reportable Estimated GFR > 60 (59 - ) Glucose 107 (65-110) mg/dL Calcium 8.6 (8.4-10.2) mg/dL Total Bilirubin 1.4 H (0.2-1.3) mg/dL AST 22 (17-59) U/L ALT 17 (6-50) U/L Alkaline Phosphatase 52 (38-126) U/L Troponin I 0.018 (0.000-0.034) ng/mL Total Protein 7.0 (6.3-8.2) g/dL Albumin 4.0 (3.5-5.1) g/dL Lipase 225 (23-300) U/L Influenza A (RT-PCR) Negative (Negative) Influenza B (RT-PCR) Negative (Negative) RSV (RT-PCR) Negative (Negative) SARS-CoV-2 RNA (RT-PCR) Negative (Negative) Group A Strep (PCR) Not detected (Negative) 09/25/24 Range/Units 00:15 WBC (4.5-10.0) K/mm3 RBC (4.6-6.20) M/mm3 Hgb (14.0-18.0) g/dL Hct (42.0-52.0) % MCV (80-100) fl MCH (26-34) pg MCHC (32-36) g/dl RDW (11.5-14.5) % Plt Count (150-375) k/mm3 MPV (7.4-10.4) fl Immature Gran % (Auto) (0-0.5) % Neut % (Auto) (45.5-73.1) % Lymph % (Auto) (18.3-44.2) % [place] % (Auto) (2.6-8.5) % Eos % (Auto) (0-4.4) % Baso % (Auto) (0.2-1.2) % Lymph # (Auto) (0.9-3.2) K/mm3 [place] # (Auto) (0.1-0.6) K/mm3 Eos # (Auto) (0-0.3) K/mm3 Baso # (Auto) (0.0-0.1) K/mm3 Abs Immat Gran (auto) (0.00-0.031) K/mm3 Absolute Neuts (auto) (1.3-6.7) K/mm3 Absolute Nucleated RBC (0.0-0.012) K/mm3 Nucleated RBC % (0.0-0.2) % PT (11.1-14.7) Seconds INR APTT (22.3-36.8) Seconds Sodium (137-145) mmol/L Potassium (3.4-5.0) mmol/L Chloride (98-107) mmol/L Carbon Dioxide (22-30) mmol/L Anion Gap (4-12) mmol/L BUN (9-20) mg/dL Creatinine (0.7-1.3) mg/dL Estim Creat Clear Calc Estimated GFR (59 - ) Glucose (65-110) mg/dL Calcium (8.4-10.2) mg/dL Total Bilirubin (0.2-1.3) mg/dL AST (17-59) U/L ALT (6-50) U/L Alkaline Phosphatase (38-126) U/L Troponin I 0.013 D (0.000-0.034) ng/mL Total Protein (6.3-8.2) g/dL Albumin (3.5-5.1) g/dL Lipase (23-300) U/L Influenza A (RT-PCR) (Negative) Influenza B (RT-PCR) (Negative) RSV (RT-PCR) (Negative) SARS-CoV-2 RNA (RT-PCR) (Negative) Group A Strep (PCR) (Negative) Imaging Data Attestation: I personally reviewed and interpreted this imaging study as follows: Radiologist's impression: Impressions Chest X-Ray 09/24/24 21:46 IMPRESSION: Subsegmental right suprahilar opacity may represent perihilar atelectasis or the consolidation of pneumonia. Recommend radiographic follow-up to ensure resolution. Discharge Plan Discharge Clinical Impression: Community acquired bacterial pneumonia, Costalchondritis Patient Disposition: Home, Self-Care Condition: Stable Instructions: Antibiotic Form, Costochondritis (ED), Community Acquired Pneumonia (ED) Additional Instructions: Please return to the ER with an worsening symptoms. Follow-up with primary care provider in the next 2-3 days. Take all medications as prescribed. Patient Language: Beninese Prescriptions: New amoxicillin-pot clavulanate 875-125 mg tablet 1 tablet PO Q12H Qty: 20 0RF doxycycline monohydrate 100 mg capsule 100 mg PO BID Qty: 14 0RF albuterol sulfate 90 mcg/actuation aerosol powdr breath activated 2 inh inhalation Q4-6H PRN (Reason: shortness of breath or wheezing) Qty: 1 0RF No Action Paxlovid 300 mg (150 mg x 2)-100 mg tablets,dose pack See Rx Instructions .ROUTE .COMPLEX Qty: 30 0RF Rx Instructions: take TWO 150 mg tablets of nirmatrelvir with ONE 100 mg tablet of ritonavir twice daily for 5 days acetaminophen 500 mg capsule 1,000 mg PO Q6H PRN (Reason: pain) Qty: 20 0RF ibuprofen 200 mg capsule 600 mg PO Q8H PRN (Reason: pain) Qty: 20 0RF methocarbamol 750 mg tablet 750 mg PO HS Qty: 7 0RF Follow-up/Referrals: PHYSICIAN,CLIENT TECHNICAL SPECIALIST [Primary Care Provider] - Time of Disposition: 01:15
[2024-09-24] MEDS: KETOROLAC 15 MG/ML VIAL (*BKC) IV PUSH (22:32)
[2024-09-24] MEDS: SODIUM CHLORIDE 0.9% IV 1,000 ML 999 ML IV CONT (22:33)
[2024-09-24] MEDS: HYDROmorphone HCL INJ (*CRX) 1 MG/ML SYR 0.5 MG IV PUSH (22:33)
--- NOTE | 2024-09-25 00:09 | ECG_ITS ---
Test Date: 2024-09-25 00:15:25 Measurements Intervals [place] Rate: 81 P: 84 [place]: 116 QRS: 89 QRSD: 103 T: 74 QT: 344 QTc: 399 Interpretive Statements SINUS RHYTHM WITH SHORT MA INTERVAL ST ELEVATION, PROBABLY EARLY REPOLARIZATION [ST ELEVATION WITH NORMALLY INFLECTED T WAVE] Compared to ECG 09/24/2024 20:57:33 Short MA interval now present ST (T wave) deviation now present Early repolarization now present Electronically Signed On 09-25-2024 12:02:36 DIGITAL ARTIST by Taiwo Gonzalez M.D.
[2024-09-25] MEDS: IPRATROPIUM 0.5 MG/ALBUTEROL SULFATE 2.5 MG AMPUL.NEB 3 ML INHALATION (00:12)
[2024-09-25 00:17] VITALS: PULSE 76; RESP 18
[2024-09-25 00:37] LABS: Strep Group A RT-PCR NOT DETECTED (Negative)
[2024-09-25 00:48] LABS: Troponin I 0.013 ng/mL (0.000-0.034)
[2024-09-25] MEDS: DOXYCYCLINE HYCLATE 100 MG TABLET PO (01:27)
[2024-09-25] MEDS: AMOXICILLIN/CLAVULANATE K 875-125 MG TAB 1 TABLET PO (01:28)
--- OUTSIDE RECORDS SUMMARY | 2024-09-30 01:32 | XMS_ITS | Encounter Summary ---
Author Organization [facility] Address [address] [place] [address]. [address] [address] Care Team Providers Care Overnight Caregiver Name Role Phone Andra Luna Primary Care Provider [phone] Encounter Details Date Type Department Care Team (Latest Contact Info) Description 01/21/2024 Travel Social History Tobacco Use Types Packs/Day Years Used Date Smoking Tobacco: Never Smokeless Tobacco: Never Comments:counseled by Dr Elise khan Alcohol Use Standard Drinks/Week Comments Yes 0 (1 standard drink = 0.6 oz pur e alcohol) occ beer PHQ-2 Answer Date Recorded Patient Health Questionnaire-2 Score 0 12/30/2023 Sex and Gender Information Value Date Recorded Sex Assigned at Not on file 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
--- OUTSIDE RECORDS SUMMARY | 2024-09-30 01:32 | XMS_ITS | Encounter Summary ---
Author Organization [facility] Address [address] [place] [address]. 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
--- OUTSIDE RECORDS SUMMARY | 2024-09-30 01:32 | XMS_ITS | Encounter Summary ---
Author Organization [facility] Address [address] [place] [address]. [place], [place] [id number] [place] [id number] Care Team Providers Care Cinema Operator Name Role Phone Andra Luna Primary Care Provider [phone] Reason for Visit * Reason Onset Date Comments Work Comp Injury Management 01/25/2024 Encounter Details Date Type Department Care Team (Late st Contact Info) Description 01/25/2024 Telephone [facility] Family [facility] Internal [facility] [address] [place] [address] Andra Luna APNP [address] [place] [address] Work Comp Injury Management Social History Tobacco Use Types Packs/Day Years [...] on file 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 Called the number below to find out what information they are needing as this patient was released. Spoke with welding equipment sales representative. They received forms faxed following last [facility] 01/21/24. They are needing office note from that visit. Pt signed HIPAA release for records permitting us to send. Office note printed/faxed * Teresa Logan - 01/25/2024 8:51 AM CDT Erika from [employer] called and is needing information about the reasonin this patient cannot return to work. Please return her call at [phone]. documented in this encounter Plan of Treatment Not on file documented as of this encounter Visit Diagnoses Not on filedocumented in this encounter Additional Health Concerns Assessment Noted Time PHQ-9 Depression Total Score: 6 12/30/19 24 8:07 AM CDT documented as of this encounter Care Teams Cinema Operator Relationship Specialty Start Date End Date Andra Luna APNP [address] [place] [id number] PCP - General NURSE PRACTITIONER 12/30/23 documented as of this encounter
--- OUTSIDE RECORDS SUMMARY | 2024-09-30 01:32 | XMS_ITS | Encounter Summary ---
Author Organization [facility] Address [address] [place] [address]. 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
--- OUTSIDE RECORDS SUMMARY | 2024-09-30 01:32 | XMS_ITS | Encounter Summary ---
Author Organization [facility] Address [address] [place] [address]. [place], [place] [id number] [place] [address] Care Team Providers Care Vending Machine Collector Name Role Phone Andra Luna Primary Care Provider [phone] Reason for Visit * Reason Comments Attention Deficit Hyperactivity Disorder Pt wants to be evaluated for ADHD Encounter Details Date Type Department Care Team (Latest Contact Info) Description 04/25/2024 2:00 PM CDT Office Visit [facility] Family & Internal Medicine [address] [phone] Andra Luna APNP [facility] [place] [address] Attention Deficit Hyperactivity Disorder (Pt wants to be evaluated for ADHD) Social History Tobacco Use Types Packs/Day Years Used Date Smoking Tobacco: Never Smokeless Tobacco: Never Alcohol Use Standard Drinks/Week Comments Yes 0 (1 standard drink = 0.6 oz pur e alcohol) occ beer PHQ-2 Answer Date Recorded Patient Health Questionnaire-2 Score 0 12/30/2023 Sex and Gender Information Value Date Recorded Sex Assigned at Not on file 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 Gender Identity Not on file Sexual Orientation Not on file documented as of this encounter Last Filed Vital Signs Vital Sign Reading Time Taken Comments Blood Pressure 126/74 04/25/2024 2:03 PM CDT Pulse 81 04/25/2024 2:03 PM CDT Temperature 36.8 ??C (98.2 ??F) 04/25/2024 2:03 PM CD T Respiratory Rate 16 04/25/2024 2:03 PM CDT Oxygen Saturation 97% 04/25/2024 2:03 PM CDT Inhaled Oxygen Concentration - - Weight 88.4 kg (194 lb 14.4 oz) 04/25/2024 2:03 PM CDT Height 182.9 cm (6') 04/25/2024 2:03 PM CDT Body Mass Index 26.43 04/25/2024 2:03 PM CDT documented in this encounter Progress Notes * SASHA Royal - 04/25/2024 2:00 PM CDT Images from the original note were not included. [facility] FAMILY AND INTERNAL MEDICINE OFFICE VISIT Reason for Visit: Attention Deficit Hyperactivity Disorder (Pt wants to be evaluated for ADHD) History of Present Illness: 23 yo male here today to follow up on his ADHD. He states he was diagnosed as a child, was on medication---has been on several different meds--Ritalin, Adderall, Concerta and maybe Vyvanse. He stateshe has not been on meds since the he was 12 years old. He states he just did not want to take meds anymore. He feels now he needs to be medicated--he is having issues with focus, keeping on task at work, poor impulse control, loses things often, forgetful, has difficulty completing larger tasks. [place] in regards to impulse control---has outbursts at work and at home at times. The Adult ADHD RS-IV was completed at visit today and is positive for ADD. Denies any cardiac history. ROS: Review of Systems Constitutional: Negative for chills and fever. Respiratory: Negative for cough and shortness of breath. Cardiovascular: Negative for chest pain and palpitations. Gastrointestinal: Negative for abdominal pain, diarrhea, nausea and vomiting. Neurological: Negative for dizziness and headaches. Medications: Current Outpatient Medications: lisdexamfetamine (VYVANSE) 30 MG capsule, Take 1 capsule (30 mg total) by mouth every morning., Disp: 30 capsule, Rfl: 0 methocarbamol (ROBAXIN) 750 MG Tab, Take 1 tablet (750 mg total) by mouth nightly at bedtime. at bedtime., Disp: , Rfl: traZODone (DESYREL) 50 MG tablet, Take one half tablet once nightly as needed for sleep (Patient not taking: Reported on 01/21/2024), Disp: 30 tablet, Rfl: 0 vitamin D3, cholecalciferol, (VITAMIN D) 1000 UNIT Tab tablet, Take 2 tablets (2,000 Units total) by mouth daily. (Patient not taking: Reported on 12/30/2023), Disp: 30 tablet, Rfl: 0 Allergies: Review of patient's allergies indicates: No Known Allergies Medical History: History reviewed. No pertinent past medical history. Surgical History: History reviewed. No pertinent surgical history. Social History: Social History Socioeconomic History Marital status: Single Tobacco Use Smoking status: Never Smokeless tobacco: Never Vaping Use Vaping status: Never Used Substance and Sexual Activity Alcohol use: Yes Comment: occ beer Drug use: Yes Types: Marijuana Sexual activity: Not Currently Family History: Family History Problem Relation Name Age of Onset Cancer Mother thyroid PE: Physical Exam Vitals and nursing note reviewed. HENT: Head: Normocephalic and atraumatic. Eyes: General: No scleral icterus. Conjunctiva/sclera: Conjunctivae normal. Neck: Trachea: No tracheal deviation. Cardiovascular: Rate and Rhythm: Normal rate and regular rhythm. Heart sounds: Normal heart sounds. Pulmonary: Effort: Pulmonary effort is normal. No respiratory distress. Breath sounds: Normal breath sounds. No stridor. No wheezing. Musculoskeletal: General: No deformity. Normal range of motion. Cervical back: Normal range of motion and neck supple. Skin: General: Skin is warm and dry. Findings: No erythema. Neurological: Mental Status: He is alert and oriented to person, place, and time. Gait: Gait is intact. Psychiatric: Mood and Affect: Mood and affect normal. Filed Vitals: 04/25/24 1403 BP: 126/74 Pulse: 81 Resp: 16 Temp: 98.2 ??F (36.8 ??C) TempSrc: Skin SpO2: 97% Weight: 88.4 kg (194 lb 14.4 oz) Height: 1.829 m (6') Labs: Labs Reviewed Diagnoses/Impression: 1. Attention deficit hyperactivity disorder (ADHD), predominantly inattentive type lisdexamfetamine(VYVANSE) 30 MG capsule Recommendations and Plan: 1. Attention deficit hyperactivity disorder (ADHD), predominantly inattentive type - lisdexamfetamine (VYVANSE) 30 MG capsule; Take 1 capsule (30 mg total) by mouth every morning. Dispense: 30 capsule; Refill: 0 Symptoms suggestive of ADHD. Adult ADHD RS IV paperwork completed, indicates ADHD. Results reviewedwith patient today. We discussed treatment options. Patient opted to initiate starting dose of Vyvanse. Aware of risk, benefits and side effects. See patient back in 1 month for follow-up. Suggested also patient established with psychiatrist. Orders Placed This Encounter lisdexamfetamine (VYVANSE) 30 MG capsule Cannot display discharge medications since this is not an admission. PCP: SASHA Royal 04/25/2024 documented in this encounter Plan of Treatment Not on file documented as of this encounter Visit Diagnoses Diagnosis Attention deficit hyperactivity disorder (ADHD), predominantly inattentive type- Primary documented in this encounter Additional Health Concerns Assessment Noted Time PHQ-9 Depression Total Score: 6 12/30/19 24 8:07 AM CDT documented as of this encounter Care Teams Vending Machine Collector Relationship Specialty Start Date End Date Andra Luna APNP [address] [place] [id number] PCP - General NURSE PRACTITIONER 12/30/23 documented as of this encounter
--- OUTSIDE RECORDS SUMMARY | 2024-09-30 01:32 | XMS_ITS | Clinical Summary ---
Author Organization [facility] Address [address] [place] [address]. [place], [place] [address] [place] [address] Care Team Providers Care Varnish Finisher Name Role Phone Andra Luna Primary Care Provider [phone] Allergies No known active allergies Medications vitamin D3, cholecalciferol, (VITAMIN D) 1000 UNIT Tab tabletIndications :Vitamin D deficiency Take 2 tablets (2,000 Units total) by mouth daily. 30 tablet 2 Active Additional Information Patient not taking.Reported on 12/30/2023 methocarbamol (ROBAXIN) 750 MG Tab Take 1 tablet (750 mg total) by mouth nightly at bedtime. at bedtime. 4 Active traZODone (DESYREL) 50 MG tabletIndications :Primary insomnia Take one half tablet once nightly as needed for sleep 30 tablet 4 Active Additional Information Patient not taking.Reported on 01/21/2024 lisdexamfetamine (VYVANSE) 30 MG capsuleIndication s:Attention deficit hyperactivity disorder (ADHD), predominantly inattentive type Take 1 capsule (30 mg total) by mouth every morning. 30 capsule 4 Active Active Problems Problem Noted Date Diagnosed Date Gastroesophageal reflux disease without esophagi tis 10/20/2021 Autism (HHS/HCC) 09/22/2021 Attention deficit hyperactiv ity disorder (ADHD), predominantly inattentive type 09/22/2021 Vitamin D deficiency 09/22/2021 Immunizations Name Administration Dates Next Due HPV GARDASIL 9-VALENT 09/07/2022 Tdap (Adacel) 07/13/2022 Family History Medical History Relation Comments Cancer Mother thyroid Relation Status Comments Brother Alive Father Alive Mother Alive Sister Alive Social History Tobacco Use Types Packs/Day Years Used Date Smoking Tobacco: Never Smokeless Tobacco: Never Alcohol Use Standard Drinks/Week Comments Yes 0 (1 standard drink = 0.6 oz pur e alcohol) occ beer PHQ-2 Answer Date Recorded Patient Health Questionnaire-2 Score 0 12/30/2023 Sex and Gender Information Value Date Recorded Sex Assigned at Not on file 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 Gender Identity Not on file Sexual Orientation Not on file Last Filed Vital Signs Vital Sign Reading [...] Mass Index 26.43 04/25/2024 2:03 PM CDT Plan of Treatment Health Maintenance Due Date Last Done Comments Hepatitis B Vaccines (1 of 3 - 19+ 3-dose series) 2017 Annual Physical 09/22/2022 09/22/2021 HPV Vaccines (2 - Male 3-dos e series) 10/05/2022 09/07/2022 COVID-19 Vaccine (1 - 2023-2 5 season) 2024 Influenza Adult (#1) 2024 DTaP, Tdap and Td Vaccines ( 2 - Td or Tdap) 07/13/2032 07/13/2022 Hepatitis C Completed 09/22/2021 Meningococcal Vaccine Aged Out No africa mae eligible based on patient's age to complete this topic Pneumococcal Vaccine: Pediat rics (0 to 5 Years) and At-Risk Patients (6 to 64 Years) Aged Out No longer eligi ble based on patient's age to complete this topic RSV Immunizations Under 20 Months Aged Out No longer eligible based on patient's age to complete this topic Procedures Procedure Name Priority Date/Time Associated Diagnosis Comments HEPATITIS C ANTIBODY Routine 09/22/2021 9:36 AM ROUTE SALES SPECIALIST Annual physical exam Encounter for medical examination to establish care General medical exam Encounter for hepatitis C screening test for low risk patient from Last 3 Months or Most Recently Relevant to Health Maintenance Results * HEPATITIS C ANTIBODY (09/22/2021 9:36 AM ROUTE SALES SPECIALIST) HEPATITIS C AB NON-REACTI VE NON-REACT RAOUL 09/22/2021 9:59 PM ROUTE SALES SPECIALIST [facility] Comment: ANTIBODIES TO HCV NOT DETECTED. DOES NOT EXCLUDE THE POSSIBILITY OF EXPOSURE TO HCV. 09/22/2021 9:36 AM ROUTE SALES SPECIALIST France Quinonez MD LABORATORY Final Result Performing Organization Address City/State/[facility] Co de Phone Number [facility] [address] [place] [address], [id number] from Last 3 Months or Most Recently Relevant to Health Maintenance Insurance [facility] Care Teams Varnish Finisher Relationship Specialty Start Date End Date Andra Luna APNP [address] [place] [id number] PCP - General NURSE PRACTITIONER 12/30/23
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
--- OUTSIDE RECORDS SUMMARY | 2024-09-30 01:33 | XMS_ITS | Encounter Summary ---
Author Organization [facility] Address [address] [place] [address]. 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
--- OUTSIDE RECORDS SUMMARY | 2024-09-30 01:33 | XMS_ITS | Encounter Summary ---
Author Organization [facility] Address [address] [place] [address]. 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
--- OUTSIDE RECORDS SUMMARY | 2024-09-30 01:33 | XMS_ITS | Encounter Summary ---
Author Organization [facility] Address [address] [place] [address]. 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
--- OUTSIDE RECORDS SUMMARY | 2024-09-30 01:33 | XMS_ITS | Encounter Summary ---
Author Organization [facility] Address [address] [place] [address]. [place], [place] [id number] [place] [id number] Care Team Providers Care Online Marketer Name Role Phone Andra Luna Primary Care Provider [phone] Reason for Visit * Reason Onset Date Comments Other 01/20/2024 Pt Encounter Details Date Type Department Care Team (Late st Contact Info) Description 01/20/2024 Telephone [facility] [address] [place] [address] Andra Luna APNP [facility] [place] [address] Other (Pt) Social History Tobacco Use Types Packs/Day Years [...] on file 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 Pt understands he needs to call by noon if he cannot make this appointment. Pt will try to obtain ppw before appt,, otherwise return to work note will suffice for now. * SASHA Royal - 01/20/2024 4:18 PM CDT I have not seen any paperwork He can be seen tomorrow if he likes * Giuliana Rivera - 01/20/2024 11:34 AM CDT Pt is asking for an appt sooner so that he can go back to work. Wants to know if office has received the paperwork that is needing to be filled out. documented in this encounter Plan of Treatment Not on file documented as of this encounter Visit Diagnoses Not on filedocumented in this encounter Additional Health Concerns Assessment Noted Time PHQ-9 Depression Total Score: 6 12/30/19 24 8:07 AM CDT documented as of this encounter Care Teams Online Marketer Relationship Specialty Start Date End Date Andra Luna APNP [address] [place] [id number] PCP - General NURSE PRACTITIONER 12/30/23 documented as of this encounter
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
--- OUTSIDE RECORDS SUMMARY | 2024-09-30 01:33 | XMS_ITS | Encounter Summary ---
Author Organization [facility] Address [address] [place] [address]. 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 Gender Identity Not on file Sexual Orientation Not on file documented as of this encounter Plan of Treatment Not on file documented as of this encounter Visit Diagnoses Not on filedocumented in this encounter Additional Health Concerns Assessment Noted Time PHQ-9 Depression Total Score: 7 09/22/20 9:37 AM CHIEF DISPATCHER documented as of this encounter Care Teams Kinder Teacher Relationship Specialty Start Date End Date France Quinonez MD [id number] [id number] PCP - General INTERNAL MEDICINE 09/22/21 12/29/23 Andra Luna APNP [address] [place] [id number] PCP - General NURSE PRACTITIONER 12/30/23 documented as of this encounter
--- OUTSIDE RECORDS SUMMARY | 2024-09-30 01:33 | XMS_ITS | Encounter Summary ---
Author Organization [facility] Address [address] [place] [address]. 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
--- OUTSIDE RECORDS SUMMARY | 2024-09-30 01:33 | XMS_ITS | Encounter Summary ---
Author Organization [facility] Address [address] [place] [address]. [place], [place] [id number] [place] [id number] Care Team Providers Care Correctional Counselor/Case Manager Name Role Phone Andra Luna Primary Care Provider [phone] Reason for Visit * Reason Onset Date Comments Radiology Results 12/31/[address] Encounter Details Date Type Department Care Team (Late st Contact Info) Description 12/31/2023 Telephone [facility] Family & Internal Medicine [facility] [address] [place] [address] Andra Luna APNP [address] [place] [address] Radiology Results (Head CT) Social History Tobacco Use Types Packs/Day Years [...] on file 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 Results given, she v/u. She states pt is doing the same, no better, no worse. Per office note, will plan after result. Please advise. * Brigette Saleem MA - 12/31/2023 7:31 AM CDT LMOM to please call office for CT results. ----- Message from SASHA Royal sent at 12/30/2023 6:39 PM CDT ----- No acute findings noted with head CT documented in this encounter Plan of Treatment Not on file documented as of this encounter Visit Diagnoses Not on filedocumented in this encounter Additional Health Concerns Assessment Noted Time PHQ-9 Depression Total Score: 6 12/30/19 8:07 AM CDT documented as of this encounter Care Teams Correctional Counselor/Case Manager Relationship Specialty Start Date End Date Andra Luna APNP [address] [place] [address] PCP - General NURSE PRACTITIONER 12/30/23 documented as of this encounter
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
--- OUTSIDE RECORDS SUMMARY | 2024-09-30 01:33 | XMS_ITS | Encounter Summary ---
Author Organization [facility] Address [address] [place] [address]. [place], [place] [id number] [place] [address] Care Team Providers Care Rater Associate Name Role Phone France Quinonez MD Primary Care Provider [phone] Encounter Details Date Type Department Care Team (Latest Contact Info) Description 09/07/2022 Travel Social History Tobacco Use Types Packs/Day Years Used Date Smoking Tobacco: Never Smokeless Tobacco: Never Comments:counseled by Dr Elise khan Alcohol Use Standard Drinks/Week Comments Yes 0 (1 standard drink = 0.6 oz pur e alcohol) occ beer PHQ-2 Answer Date Recorded PHQ-2 Score - If the patient scores above 3, please move on to questions 3-9 1 09/22/2021 Sex and Gender Information Value Date Recorded Sex Assigned at Not on file 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 No / Unsure 09/07/2022 12:57 PM RESEARCH WORKER KITCHEN documented as of this encounter Plan of Treatment Not on file documented as of this encounter Visit Diagnoses Not on filedocumented in this encounter Additional Health Concerns Assessment Noted Time PHQ-9 Depression Total Score: 7 09/22/20 21 9:37 AM RESEARCH WORKER KITCHEN documented as of this encounter Care Teams Rater Associate Relationship Specialty Start Date End Date France Quinonez MD [address] [facility] [address] [place] [address] PCP - General INTERNAL MEDICINE 09/22/21 12/29/23 documented as of this encounter
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
--- OUTSIDE RECORDS SUMMARY | 2024-09-30 01:34 | XMS_ITS | Encounter Summary ---
Author Organization [facility] Address [facility]. [place], [place] [address] [place] [address] Care Team Providers Care Housekeeper Nanny Name Role Phone France Quinonez MD Primary Care Provider [phone] Reason for Referral * Consultation/Treatment (Routine) - Closed Specialty Diagnoses / Procedures Referred By Contac t Referred To Contact SPORTS MEDICINE / ORTHOPAEDICS Diagnoses Chronic left shoulder pain Procedures OFFICE/OUTPT VISIT,NEW,LEVL III OFFICE/OUTPT VISIT,NEW,LEVL IV OFFICE/OUTPT VISIT,NEW,LEVL V OFFICE/OUTPT VISIT,EST,LEVL III OFFICE/OUTPT VISIT,EST,LEVL IV OFFICE/OUTPT VISIT,EST,LEVL V France Quinonez MD [address] [facility] [address] [place] [address] Phone: tel: fax: Jua nC Bee MD [address] [place] [address] Phone: tel: fax: Referral ID Status Reason Start Date Expiration Date V isits Requested Visits Authorized [id number] Closed Specialty Services 07/13/2022 08/13/2023 100 100 Scheduling Instructions For left shoulder injection under ultrasound guidance. Thanks. Reason for Visit * Reason Comments Shoulder Pain Patient states the l eft shoulder pain is still there 04/19 right now Itching Patient has been itc vanita the groin area for about a week. Encounter Details Date Type Department Care Team (Latest Contact Info) Description 07/13/2022 12:40 PM CDT Office Visit [facility] - [place] [address] [address] [place] [address] France Quinonez MD [address] [facility] [address] [place] [address] Shoulder Pain (Patient states the left shoulder pain is still there 04/19 right now); Itching (Patient has been itching the groin area for about a week.) Social History Tobacco Use Types Packs/Day Years Used Date Smoking Tobacco: Never Smokeless Tobacco: Never Tobacco Cessation:Counseling Given: Yes Comments:counseled by Dr Quinonez Alcohol Use Standard Drinks/Week Comments Yes 0 (1 standard drink = 0.6 oz pur e alcohol) occ beer PHQ-2 Answer Date Recorded PHQ-2 Score - If the patient scores above 3, please move on to questions 3-9 1 09/22/2021 Sex and Gender Information Value Date Recorded Sex Assigned at Not on file 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 No / Unsure 07/13/2022 12:48 PM CDT documented as of this encounter Last Filed Vital Signs Vital Sign Reading Time Taken Comments Blood Pressure 123/72 07/13/2022 12:59 PM CDT Pulse 72 07/13/2022 12:59 PM CDT Temperature 36.9 ??C (98.5 ??F) 07/13/2022 1 2:59 PM CDT Respiratory Rate 18 07/13/2022 12:5 9 PM CDT Oxygen Saturation 97% 07/13/2022 12: 59 PM CDT Inhaled Oxygen Concentration - - Weight 106.8 kg (235 lb 6.4 oz) 022 12:59 PM CDT Height 182.9 cm (6') 07/13/2022 12:59 PM CDT Body Mass Index 31.93 07/13/2022 12:59 PM CDT documented in this encounter Patient Instructions * Patient Instructions* France Quinonez MD - 07/13/2022 12:40 PM CDT Follow up in 8 weeks for the left shoulder. Continue with therapy. Referral call You will receive a call from our referral team ([phone]) regarding your referral. Insurance authorization Our librarian specialist will contact your insurance company to get prior authorization if needed. Appointment If you have been referred to an [facility] hospital or [facility] provider, the hospital or clinic you have been referred to will call you to schedule your appointment. For those outside services of [facility], our referral expects will be in contact by phone or mail regarding your recently placed referral. If you have not heard anything from your referral in about 1 week, please call [phone]. Working with insurance companies can be cumbersome, but we are dedicated to processing your referral timely and efficiently. Please know you have a caring and competent team working on your behalf [facility] continuum of care as quickly as possible. documented in this encounter Progress Notes * France Quinonez MD - 07/13/2022 12:40 PM CDTSummary: Follow-up notes Images from the original note were not included. Internal Medicine Outpatient Progress Note CC: Shoulder Pain (Patient states the left shoulder pain is still there 04/19 right now) and Itching(Patient has been itching the groin area for about a week.) HPI: Richard Del Toro is a 21-year-old male who presents for follow-up for left shoulder pain. Patient was seen about 8 weeks ago for follow-up of chronic left shoulder pain. He has since been referred to physical therapy and patient has been compliant with following through with physical therapy but missed a few sessions according to patient but he promises to follow through. He currently rates his pain as mild though still present. Denies any associated numbness or tingling or weakness of the left upper extremity. No prior trauma that patient could recall. He underwent MRI of the left shoulder on 06/01/2022 which showed no clear evidence of rotator cuff or labral tear however there was subtle signal abnormality of the posterior inferior glenoid. Recommendations made for MRI arthrogram if there are still symptoms. Subacromial impingement including spurring and narrowing and moderate bursitis reported. Patient was previously prescribed a course of oral steroids and tizanidine as well as daily meloxicam as needed and patient here for follow-up. Concerned about a rash in the inner aspect of the thighs that started about one week ago. Accordingto patient, he has had this rash on and off for about 4 years. Recently noticed new onset of rash. He tells me he has not been sexually active for the last 3 years. The rash is mildly itchy in nature. They appear as reddish spots. No discharge from the rash. Patient concerned and would like this addressed at today's visit. Denies any fever or chills. The rash is mainly located on the inner aspectof the upper thigh. No other rash anywhere. No recent sick contacts. No associated pain. Problem List Patient Active Problem List Diagnosis ??? Autism ??? Attention deficit hyperactivity disorder (ADHD), predominantly inattentive type ??? Vitamin D deficiency ??? Gastroesophageal reflux disease without esophagitis History reviewed. No pertinent past medical history. History reviewed. No pertinent surgical history. Family History Problem Relation Name Age of Onset ??? Cancer Mother thyroid Social History Tobacco Use ??? Smoking status: Never Smoker ??? Smokeless tobacco: Never Used ??? Tobacco comment: counseled by Dr Quinonez Vaping Use ??? Vaping Use: Never used Substance Use Topics ??? Alcohol use: Yes Comment: occ beer ??? Drug use: Yes Types: Marijuana Medications: Outpatient Medications Marked as Taking for the 07/13/22 encounter (Office Visit) with France Quinonez MD Medication Sig Dispense Refill ??? clotrimazole-betamethasone (LOTRISONE) cream Apply topically 2 (two) times daily for 7 days. 45g 0 ??? meloxicam (MOBIC) 15 MG tablet Take 1 tablet (15 mg total) by mouth daily as needed. Use for left shoulder pain 30 tablet 2 ??? mupirocin (BACTROBAN) 2 % ointment Apply topically 3 (three) times daily for 7 days. 22 g 0 ??? omeprazole 40 MG capsule Take 1 capsule (40 mg total) by mouth daily. 30 capsule 0 ??? tiZANidine (ZANAFLEX) 4 MG tablet Take 1 tablet (4 mg total) by mouth nightly at bedtime. 30 tablet 0 ??? vitamin D2, ergocalciferol, 48126 UNITS capsule Take 1 capsule (50,000 Units total) by mouth weekly. 12 capsule 0 ??? vitamin D3, cholecalciferol, (VITAMIN D) 1000 UNIT Tab tablet Take 2 tablets (2,000 Units total) by mouth daily. 30 tablet 0 Allergies: No Known Allergies Review of Systems Constitutional: Negative for chills, diaphoresis, fever, malaise/fatigue and weight loss. HENT: Negative. Eyes: Negative. Respiratory: Negative. Cardiovascular: Negative for chest pain, palpitations, orthopnea, claudication, leg swelling and PND. Gastrointestinal: Negative. Genitourinary: Negative. Musculoskeletal: Positive for joint pain. Negative for back pain, falls, myalgias and neck pain. Skin: Positive for itching and rash. Neurological: Negative. Objective: Filed Vitals: 07/13/22 1259 BP: 123/72 Pulse: 72 Resp: 18 Temp: 98.5 ??F (36.9 ??C) TempSrc: Temporal SpO2: 97% Weight: 106.8 kg (235 lb 6.4 oz) Height: 6' (1.829 m) Body mass index is 31.93 kg/m??. General alert, cooperative, no distress HEENT EOM's intact. Oral mucosa normal. Nasal septum is midline. Neck Supple, symmetrical, trachea midline, no adenopathy, no thyromegaly, no JVD. Lungs No acute respiratory distress, no accessory muscle use, symmetric motion of the chest wall, lungs are clear to auscultation bilaterally, no wheezes or rales. Heart Regular rate and regular rhythm. S1, S2 normal. No murmurs. No rubs, clicks, or gallops. Abdomen Soft, non-tender, non-distended. Bowel sounds normal. No masses. No hepatomegaly appreciated. Extremities Extremities atraumatic, no cyanosis, 2+ pedal pulses, no edema Skin Skin color, texture, turgor normal. No rashes or lesions appreciated. Neurologic No focal deficits, motor strength is grossly normal and symmetric Psych Normal mood and affect MSK No synovitis, no bony tenderness, no joint effusions Lymph No cervical or supraclavicular adenopathy Assessment and Plan: Encounter Diagnose(s) ICD-10-CM ICD-9-CM SNOMED CT(R) 1. Chronic left shoulder pain M25.512 719.41 CHRONIC PAIN OF LEFT UPPER LIMB Ambulatory Referral [facility] G89.29 338.29 meloxicam (MOBIC) 15 MG tablet tiZANidine (ZANAFLEX) 4 MG tablet 2. Need for ufwuobnxsb-ronqlei-reyvvpvru (Tdap) vaccine Z23 V06.1 REQUIRES DIPHTHERIA, TETANUS AND PERTUSSIS VACCINATION [63142] Adacel (Tdap) 3. Vitamin D deficiency E55.9 268.9 VITAMIN D DEFICIENCY vitamin D3, cholecalciferol, (VITAMIN D) 1000 UNIT Tab tablet 4. Dermatitis L30.9 692.9 INFLAMMATORY DERMATOSIS mupirocin (BACTROBAN) 2 % ointment clotrimazole-betamethasone (LOTRISONE) cream 1. Chronic left shoulder pain - Ambulatory Referral to Sports Medicine for possible joint shot - meloxicam (MOBIC) 15 MG tablet; Take 1 tablet (15 mg total) by mouth daily as needed. Use for left shoulder pain Dispense: 30 tablet; Refill: 2 - tiZANidine (ZANAFLEX) 4 MG tablet; Take 1 tablet (4 mg total) by mouth nightly at bedtime. Dispense: 30 tablet; Refill: 0 -Patient will continue with physical therapy. -MRI of left shoulder joint done on 06/01/2022 discussed with patient: No evidence of rotator cuff or labral tear. Subtle signal abnormality noted at the posterior inferior glenoid, underlining tear possible. Recommendations made for an MRI arthrogram recommended. I discussed with patient about holding off further imaging and close follow-up with orthopedics to discuss at this time. His symptoms appear to be improving though not completely. 2. Need for oxbrmcmdog-echgmre-aybqxidiv (Tdap) vaccine - [73543] Adacel (Tdap) 3. Vitamin D deficiency - continue vitamin D3, cholecalciferol, (VITAMIN D) 1000 UNIT Tab tablet; Take 2 tablets (2,000 Units total) by mouth daily. Dispense: 30 tablet; Refill: 0 4. Dermatitis - mupirocin (BACTROBAN) 2 % ointment; Apply topically 3 (three) times daily for 7 days. Dispense: 22 g; Refill: 0 - clotrimazole-betamethasone (LOTRISONE) cream; Apply topically 2 (two) times daily for 7 days. Dispense: 45 g; Refill: 0 - follow up sooner is no improvement Counseling given: Yes Comment: counseled by Dr Quinonez I spent 30 minutes today reviewing the patient's medical record, obtaining history, performing an exam, ordering medications, tests, and/or procedures, documenting in the medical record, referring and/or communicating with other health care providers, counseling and educating the patient/family/caregiver, reviewing and communicating test results and coordination of care. Side effects and less common but more severe adverse effects of recommended medical therapies were explained to the patient. Follow up office visit in 2 months. Requested MyChart or telephone follow up prn if symptoms change, worsen, or persist, or if side effect of treatment is experienced. DRAGON: This dictation was at least in part performed using [employer] and there may be some inherent flaws in this chief clerk due to the nature of this program. France Quinonez MD Internal Medicine [facility], [facility]. documented in this encounter Plan of Treatment Scheduled Referrals Name Type Priority Associated Diagnoses Orde r Schedule Ambulatory Referral to Sports Medicine Referral Routine Chronic left shoulder pain Ordered: 07/13/2022 documented as of this encounter Visit Diagnoses Diagnosis Chronic left shoulder pain- Primary Pain in joint, shoulder region Need for aoagpzvtld-bvcxaoq-ucybtafgn (Tdap) vaccine Need for prophylactic vaccination with combined hsfgvzovoi-fnepley-povlmwmaq (DTP) vaccine Vitamin D deficiency Unspecified vitamin D deficiency Dermatitis Contact dermatitis and other eczema, due to unspecified cause documented in this encounter Additional Health Concerns Assessment Noted Time PHQ-9 Depression Total Score: 7 09/22/20 21 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
--- OUTSIDE RECORDS SUMMARY | 2024-09-30 01:34 | XMS_ITS | Encounter Summary ---
Author Organization [facility] Address [address] [place] [address]. 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
--- OUTSIDE RECORDS SUMMARY | 2024-09-30 01:34 | XMS_ITS | Encounter Summary ---
Author Organization [facility] Address [address] [place] [address]. [place], [place] [address] [place] [address] Care Team Providers Care Continuing Education Dean Name Role Phone France Quinonez MD Primary Care Provider [phone] Reason for Visit * Reason Comments Shoulder Pain * Physical Medicine (Routine) - Closed Specialty Diagnoses / Procedures Referred By Contac t Referred To Contact PHYSICAL THERAPY / [facility] Physical Therapy Diagnoses Chronic left shoulder pain France Quinonez MD [address] [place] [address] Phone: tel: fax: [facility] [address] [place] [address] Phone: tel: fax: Referral ID Status Reason Start Date Expiration Date V isits Requested Visits Authorized [id number] Closed Physical Therapy 05/05/2022 06/04/2023 10 10 Encounter Details Date Type Department Care Team (Late st Contact Info) Description 06/01/2022 1:30 PM CDT Office Visit [facility] [address] [place] [address] France Quinonez MD [address] [place] [address] Augustina Osorio PT Shoulder Pain Social History Tobacco Use Types Packs/Day Years [...] on file 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 No / Unsure 06/01/2022 11:06 AM CDT documented as of this encounter Progress Notes * Augustina Osorio, PT - 06/01/2022 1:30 PM CDT Physical Therapy Visit Note: Patient Name: Richard Del Toro Diagnosis: Chronic left shoulder pain (primary encounter diagnosis) Decreased rom of left shoulder Personal Protective Equipment PPE Used During Visit: Therapist wore medical grade mask throughout session, Patient wore mask throughout session SUBJECTIVE Therapy Visit Treatment Day: 3 Total Approved Visits: 10 Therapy Plan of Care: ROM and strengthening L shoulder, postural ex Current Therapy Orders: eval and treat Diagnosis: chronic L shoulder pain Referring Provider: Cristiano Workers Compensation Injury: No Work 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 [employer] 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 Compliance to Home Program: skipped the last 2 days, too tired after work Reported Falls since last visit: None Medications changes since last visit : None Pain Current Location of Pain: L shoulder Current Pain Level: 2/10 Other (comments): sore after MRI OBJECTIVE Treatment provided today: Objective Objective Measurement: Active abduction 160 with pain Neuromuscular Re-education - 15564 Number of Minutes - 76290: 8 Intervention: kinesiotape: I-strip to unweight L UE, I-strip to pull shoulder posteriorly Other (Comments): See education below Therapeutic Exercise - 17671 Number of Minutes - 39367: 25 Exercise: PROM L shoulder with gentle stretch at end range Exercise: AROM R shoulder all planes x 5 Exercise: green band shoulder extension, ER, IR x 10 each Exercise: green band shoulder flexion and abduction x 10 each Exercise: submaximal isometrics ER/IR x 10 Home Exercise Program Current Home Exercise Program: Added band shoulder flexion and abduction to HEP. Education Was Education Provided: Yes Topic: how to apply kinesiotape Recipient: Patient Method: Demonstration, Verbal Response: Verbalized understanding ASSESSMENT Assessment Note: L shoulder AROM continues to improve. Pt required verbal cues to perform band exercises correctly. Continue on Functional Deficit of: lifting PLAN Plan Next Visit Plan: Add dumbbell strengthening at next visit. 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
--- OUTSIDE RECORDS SUMMARY | 2024-09-30 01:34 | XMS_ITS | Encounter Summary ---
Author Organization [facility] Address [address] [place] [address]. 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
--- OUTSIDE RECORDS SUMMARY | 2024-09-30 01:34 | XMS_ITS | Encounter Summary ---
Author Organization [facility] Address [address] [place] [address]. 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
--- OUTSIDE RECORDS SUMMARY | 2024-09-30 01:34 | XMS_ITS | Encounter Summary ---
Author Organization [facility] Address [address] [place] [address]. [place], [place] [address] [place] [address] Care Team Providers Care Glue Line Operator Name Role Phone France Quinonez MD Primary Care Provider [phone] Reason for Visit * Reason Comments Shoulder Pain * Physical Medicine (Routine) - Closed Specialty Diagnoses / Procedures Referred By Contac t Referred To Contact PHYSICAL THERAPY / [facility] Physical Therapy Diagnoses Chronic left shoulder pain France Quinonez MD [address] [place] [address] Phone: tel: fax: [facility] Physical Therapy [address] [place] [address] Phone: tel: fax: Referral ID Status Reason Start Date Expiration Date V isits Requested Visits Authorized [id number] Closed Physical Therapy 05/05/2022 06/04/2023 10 10 Encounter Details Date Type Department Care Team (Late st Contact Info) Description 06/08/2022 12:00 PM CDT Office Visit [facility] Physical Therapy [address] [place] [address] France Quinonez MD [address] [place] [address] Augustina Osorio PT Shoulder Pain Social [...] on file 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 No / Unsure 06/08/2022 12:00 PM CDT documented as of this encounter Progress Notes * Augustina Osorio, PT - 06/08/2022 12:00 PM CDT Physical Therapy Visit Note: Patient Name: Richard Del Toro Diagnosis: Chronic left shoulder pain (primary encounter diagnosis) Decreased rom of left shoulder Personal Protective Equipment PPE Used During Visit: Therapist wore medical grade mask throughout session, Patient wore mask throughout session SUBJECTIVE Therapy Visit Treatment Day: 4 Total Approved Visits: 10 Therapy Plan of Care: ROM and strengthening L shoulder, postural ex Current Therapy Orders: eval and treat Diagnosis: chronic L shoulder pain Referring Provider: Cristiano Workers Compensation Injury: No Work 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 [employer] Job Duties: lifting Subjective Note: Pt reports he has no shoulder pain while wearing the kinesiotape. He has pain with lifting when kinesiotape is off. Compliance to Home Program: everything except band ER Reported Falls since last visit: None Medications changes since last visit : None Pain Current Location of Pain: L shoulder Current Pain Level: 0/10 at rest OBJECTIVE Treatment provided today: Objective Objective Measurement: L lower trap 3-/5, R 4+/5, L rhomboids 4-/5, R 5/5 Neuromuscular Re-education - 06045 Number of Minutes - 84591: 8 Intervention: kinesiotape: I-strip to unweight L UE, I-strip to pull shoulder posteriorly Therapeutic Exercise - 21334 Number of Minutes - 68045: 25 Exercise: PROM L shoulder with gentle stretch at end range Exercise: AROM R shoulder all planes x 5 Exercise: prone T's without weight x 10, with 2 lbs x 10 Exercise: prone Y's without weight x 10, with 2 lbs x 10 Other (Comments): See education below Home Exercise Program Current Home Exercise Program: Added prone scapular exercises to HEP. Education Was Education Provided: Yes Topic: scapular control to promote good scapulohumeral rhythm and avoid impingement Recipient: Patient Method: Demonstration, Verbal Response: Verbalized understanding ASSESSMENT Assessment Note: Pain appears to be caused by impingement with weakness noted in L lower trap and rhomboids. Pt was given scapular strengthening ex to address this. Continue on Functional Deficit of: lifting, repetitive reaching PLAN Plan Next Visit Plan: Add closed chain UE strengthening at next visit. 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
--- OUTSIDE RECORDS SUMMARY | 2024-09-30 01:34 | XMS_ITS | Encounter Summary ---
Author Organization [facility] Address [address] [place] [address]. 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
--- OUTSIDE RECORDS SUMMARY | 2024-09-30 01:34 | XMS_ITS | Encounter Summary ---
Author Organization [facility] Address [address] [place] [address]. [place], [place] [id number] [place] [address] Care Team Providers Care Training Lead Name Role Phone France Quinonez MD Primary Care Provider [phone] Reason for Visit * Reason Onset Date Comments No Show 06/22/2022 Encounter Details Date Type Department Care Team (Late st Contact Info) Description 06/22/2022 Telephone [facility] Physical Therapy 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
--- OUTSIDE RECORDS SUMMARY | 2024-09-30 01:34 | XMS_ITS | Encounter Summary ---
Author Organization [facility] Address [address] [place] [address]. 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 No / Unsure 05/05/2022 6:53 AM CDT documented as of this encounter Plan of Treatment Not on file documented as of this encounter Visit Diagnoses Not on filedocumented in this encounter Additional Health Concerns Assessment Noted Time PHQ-9 Depression Total Score: 7 09/22/20 21 9:37 AM ENTRY LEVEL INSTALLATION TECHNICIAN documented as of this encounter Care Teams Vice President Corporate Communications Relationship Specialty Start Date End Date France Quinonez MD [address] [facility] [address] [place] [address] PCP - General INTERNAL MEDICINE 09/22/21 12/29/23 documented as of this encounter
--- OUTSIDE RECORDS SUMMARY | 2024-09-30 01:34 | XMS_ITS | Encounter Summary ---
Author Organization [facility] Address [address] [place] [address]. [place], [place] [address] [place] [address] Care Team Providers Care Washer Engineer Name Role Phone France Quinonez MD Primary Care Provider [phone] Reason for Referral * Imaging (Routine) - Closed Specialty Diagnoses / Procedures Referred By Ryan mckeon Referred To Contact RADIOLOGY Diagnoses Chronic left shoulder pain Procedures MRI SHOULDER LT WO CON France Quinonez MD [address] [address] Phone: tel: fax: Referral ID Status Reason Start Date Expiration Date Visits Re quested Visits Authorized [id number] Closed 05/22/2022 11/18/2022 1 1 Reason for Visit * Imaging (Routine) - Closed Specialty Diagnoses / Procedures Referred By Ryan mckeon Referred To Contact RADIOLOGY Diagnoses Chronic left shoulder pain Procedures MRI SHOULDER LT WO CON France Quinonez MD [address] [address] Phone: tel: fax: Referral ID Status Reason Start Date Expiration Date Visits Re quested Visits Authorized [id number] Closed 05/22/2022 11/18/2022 1 1 Encounter Details Date Type Department Care Team (Latest Contact Info) Description 06/01/2022 11:07 AM CDT - 06/01/2022 11:59 PM CDT Hospital Encounter [facility] [place] [address] France Quinonez MD [address] [facility] [address] [place], [place] [id number] Discharge Disposition: Home or Self Care (Routine [...] on file 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 No / Unsure 06/01/2022 11:06 AM CDT documented as of this encounter Medications at Time of Discharge meloxicam (MOBIC) 15 MG tabletIndications :Chronic left shoulder pain Take 1 tablet (15 mg total) by mouth daily as needed. Use for left shoulder pain 30 tablet 1 05/11/2022 2 methylPREDNISolon e, GERALDO, (MEDROL DOSEPAK) 4 MG tabletIndications :Chronic left shoulder pain 6 TABLETS ON DAY ONE, 5 TABLETS DAY TWO, 4 TABLETS DAY THREE, 3 TABLETS DAY FOUR, 2 TABLETS DAY FIVE, AND 1 TABLET DAY SIX 1 each 05/05/2022 2 naproxen 500 MG tabletIndications :Acute pain of left shoulder Take 1 tablet (500 mg total) by mouth 2 (two) times daily with meals. 20 tablet 09/22/2021 2 omeprazole 40 MG capsuleIndication s:Gastroesophagea l reflux disease without esophagitis Take 1 capsule (40 mg total) by mouth daily. 30 capsule 09/22/2021 4 tiZANidine (ZANAFLEX) 4 MG tabletIndications :Chronic left shoulder pain Take 1 tablet (4 mg total) by mouth nightly at bedtime. 30 tablet 05/05/2022 2 tiZANidine HCl 2 MG CapIndications:Ac [place] pain of left shoulder Take 1 tablet by mouth nightly as needed. 20 capsule 09/22/2021 2 vitamin D2, ergocalciferol, 70177 UNITS capsuleIndication s:Vitamin D deficiency Take 1 capsule (50,000 Units total) by mouth weekly. 12 capsule 09/22/2021 2 documented as of this encounter Plan of Treatment Not on file documented as of this encounter Procedures Procedure Name Priority Date/Time Associated Diagnosis Comments MRI SHOULDER LT WO CON Routine 06/01/2022 12:23 PM CDT Chronic left shoulder pain documented in this encounter Results * MRI SHOULDER LT WO CON (06/01/2022 12:23 PM CDT) Anatomical Region Laterality Modality Shoulder Magnetic Resonan ce 06/01/2022 1:59 PM CDT Impressions 06/01/2022 2:02 PM CDT IMPRESSION: 1. ?? No clear evidence of rotator cuff or labral tear. ??However there is subtle signal abnormality at the posterior inferior glenoid, underlying tear at this site is possible. ??Consider follow-up with MRI arthrogram if there are attributable symptoms. 2. ??Findings concerning for subacromial impingement including spurring and narrowing and moderate bursitis. Referred By: FRANCE QUINONEZ Interpreted By: Regino Monge MD, 06/01/2022 1:59 PM Narrative 06/01/2022 2:02 PM CDT EXAMINATION: MRI THE ??SHOULDER WITHOUT CONTRAST EXAM DATE: 06/01/2022 11:43 AM REASON FOR EXAM: ??Shoulder pain and numbness ?? COMPARISON: None TECHNIQUE: Multisequence multiplanar imaging of the shoulder without intravenous contrast. FINDINGS: No evidence of soft tissue swelling or joint effusion. ROTATOR CUFF: No evidence of rotator cuff atrophy. Diffuse supraspinatus and infraspinatus tendinosis. ??No clear evidence of tear. BICEPS: Long head biceps anatomically positioned in the intertubercular groove. LABRUM: No definite labral tear. ??However there is subtle signal abnormality at the posterior inferior glenoid, underlying tear at this site is possible. ??Consider follow-up with MRI arthrogram if there are attributable symptoms. ACROMIOCLAVICULAR: Joint within normal limits. Subacromial spurring and narrowing and moderate bursitis concerning for impingement. GLENOHUMERAL: No evidence of joint effusion. BONES: No evidence of fracture or suspicious bone lesion. Procedure Note Regino Monge MD - 06/01/2022 EXAMINATION: MRI THE SHOULDER WITHOUT CONTRAST EXAM DATE: 06/01/2022 11:43 AM REASON FOR EXAM: Shoulder pain and numbness COMPARISON: None TECHNIQUE: Multisequence multiplanar imaging of the shoulder withoutintravenous contrast. FINDINGS: No evidence of soft tissue swelling or joint effusion. ROTATOR CUFF: No evidence of rotator cuff atrophy. Diffuse supraspinatus and infraspinatus tendinosis. No clear evidence oftear. BICEPS: Long head biceps anatomically positioned in the intertubercular groove. LABRUM: No definite labral tear. However there is subtle signal abnormality atthe posterior inferior glenoid, underlying tear at this site is possible.Consider follow-up with MRI arthrogram if there are attributablesymptoms. ACROMIOCLAVICULAR: Joint within normal limits. Subacromial spurring and narrowing and moderate bursitis concerning forimpingement. GLENOHUMERAL: No evidence of joint effusion. BONES: No evidence of fracture or suspicious bone lesion. IMPRESSION: 1. No clear evidence of rotator cuff or labral tear. However there issubtle signal abnormality at the posterior inferior glenoid, underlyingtear at this site is possible. Consider follow-up with MRI arthrogram ifthere are attributable symptoms. 2. Findings concerning for subacromial impingement including spurring andnarrowing and moderate bursitis. Referred By: FRANCE QUINONEZ Interpreted By: Regino Monge MD, 06/01/2022 1:59 PM France Quinonez MD MRI Final Result documented in this encounter Visit Diagnoses Diagnosis Chronic left shoulder pain Pain in joint, shoulder region documented in this encounter Additional Health Concerns Assessment Noted Time PHQ-9 Depression Total Score: 7 09/22/20 9:37 AM SIDEROGRAPHIST documented as of this encounter Care Teams Washer Engineer Relationship Specialty Start Date End Date France Quinonez MD [address] [address] PCP - General INTERNAL MEDICINE 09/22/21 12/29/23 documented as of this encounter
--- OUTSIDE RECORDS SUMMARY | 2024-09-30 01:34 | XMS_ITS | Encounter Summary ---
Author Organization [facility] Address [address] [place] [address]. 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
--- OUTSIDE RECORDS SUMMARY | 2024-09-30 01:34 | XMS_ITS | Encounter Summary ---
Author Organization [facility] Address [address] [place] [address]. [place], [place] [address] [place] [address] Care Team Providers Care Senior Product Integrity Engineer Name Role Phone France Quinonez MD Primary Care Provider [phone] Reason for Visit * Reason Comments Shoulder Pain * Physical Medicine (Routine) - Closed Specialty Diagnoses / Procedures Referred By Contac t Referred To Contact PHYSICAL THERAPY / [facility] Physical Therapy Diagnoses Chronic left shoulder pain France Quinonez MD [address] [place] [address] Phone: tel: fax: [facility] Physical Therapy [address] [place] [address] Phone: tel: fax: Referral ID Status Reason Start Date Expiration Date V isits Requested Visits Authorized [id number] Closed Physical Therapy 05/05/2022 06/04/2023 10 10 Encounter Details Date Type Department Care Team (Late st Contact Info) Description 05/25/2022 2:30 PM CDT Office Visit [facility] Physical Therapy [address] [place] [address] France Quinonez MD [address] [place] [address] Augustina Osorio PT Shoulder Pain Social [...] on file 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 No / Unsure 05/25/2022 1:56 PM CDT documented as of this encounter Progress Notes * Augustina Osorio, PT - 05/25/2022 2:30 PM CDT Physical Therapy Visit Note: Patient Name: Richard Del Toro Diagnosis: Chronic left shoulder pain (primary encounter diagnosis) Decreased rom of left shoulder Personal Protective Equipment PPE Used During Visit: Therapist wore medical grade mask throughout session, Patient wore mask throughout session SUBJECTIVE Therapy Visit Treatment Day: 2 Total Approved Visits: 10 Therapy Plan of Care: ROM and strengthening L shoulder, postural ex Current Therapy Orders: eval and treat Diagnosis: chronic L shoulder pain Referring Provider: Cristiano Workers Compensation Injury: No Work 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 [employer] Job Duties: lifting Subjective Note: Pt reports he can move his L shoulder better, but it still hurts when he abducts and externally rotates. Compliance to Home Program: Yes Reported Falls since last visit: None Medications changes since last visit : None Pain Current Location of Pain: L shoulder Current Pain Level: 12/18 OBJECTIVE Treatment provided today: Objective Objective Measurement: AROM L shoulder: flexion 160, abduction 135m ER to T2, IR to T7 Other (Comments): assistant general manager strength R 93 lbs, L 55 lbs Neuromuscular Re-education - 40522 Number of Minutes - 58909: 8 Postural Instruction: correct sitting posture Intervention: kinesiotape: I-strip to unweight L UE, I-strip to pull shoulder posteriorly Therapeutic Exercise - 68409 Number of Minutes - 08865: 22 Exercise: PROM L shoulder with gentle stretch at end range Exercise: AROM R shoulder all planes x 5 Exercise: green band shoulder extension, ER, IR x 10 each Other (Comments): verbal and tactile cues for correct form with ex Home Exercise Program Current Home Exercise Program: Added band ex to HEP. Education Was Education Provided: Yes Topic: strengthening to reduce pain Recipient: Patient Method: Verbal Response: Verbalized understanding ASSESSMENT Assessment Note: Good improvement in AROM L shoulder. Pt no longer has pain with all shoulder motions, just abduction and ER, Initiated strengthening exercises today. Continue on Functional Deficit of: lifting PLAN Plan Next Visit Plan: Recheck shoulder ROMflexion, abduction and scapular strengthening. Total Time Total Time in Minutes: 30 Timed Code Treatment Minutes : 30 documented in this encounter Plan of Treatment Not on file documented as of this encounter Visit Diagnoses Diagnosis Chronic left shoulder pain- Primary Pain in joint, shoulder region Decreased ROM of left shoulder documented in this encounter Additional Health Concerns Assessment Noted Time PHQ-9 Depression Total Score: 7 09/22/20 9:37 AM OVERHEAD CLEANER MAINTAINER documented as of this encounter Care Teams Senior Product Integrity Engineer Relationship Specialty Start Date End Date France Quinonez MD [address] [address] PCP - General INTERNAL MEDICINE 09/22/21 12/29/23 documented as of this encounter
--- OUTSIDE RECORDS SUMMARY | 2024-09-30 01:34 | XMS_ITS | Encounter Summary ---
Author Organization [facility] Address [address] [place] [address]. [place], [place] [id number] [place] [address] Care Team Providers Care Scissors Grinder Name Role Phone France Quinonez MD Primary Care Provider [phone] Reason for Visit * Reason Comments Shoulder Pain * Physical Medicine (Routine) - Closed Specialty Diagnoses / Procedures Referred By Contac t Referred To Contact PHYSICAL THERAPY / [facility] Physical Therapy Diagnoses Chronic left shoulder pain France Quinonez MD [address] [place] [address] Phone: tel: fax: [facility] Physical Therapy [address] [place] [address] Phone: tel: fax: Referral ID Status Reason Start Date Expiration Date V isits Requested Visits Authorized [id number] Closed Physical Therapy 05/05/2022 06/04/2023 10 10 Encounter Details Date Type Department Care Team (Late st Contact Info) Description 05/18/2022 1:30 PM CDT Office Visit [facility] Physical Therapy [address] [place] [address] France Quinonez MD [address] [place] [address] Alberto Osorio PT Shoulder Pain Social History Tobacco [...] on file Legal 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 No / Unsure 05/18/2022 12:50 PM CDT documented as of this encounter Progress Notes * Alberto Osorio, PT - 05/18/2022 1:30 PM CDT Physical Therapy Evaluation Date: 05/18/2022 Patient Name: Richard Del Toro : 2000 Diagnosis: The primary encounter diagnosis was Chronic left shoulder pain. A diagnosis of DecreasedROM of left shoulder was also pertinent to this visit. AMB PT SUBJECTIVE EVAL: History of Present Illness: Mechanism of injury: Pt reports he has had L shoulder pain for about a year, but denies any specific injury. He fell on his L shoulder in August 2021, but states his shoulder hurt before that. 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 He alsohas migraines 3-4x/month. Pain: Current pain ratin/10 Location: Anterior L shoulder and upper arm Quality: Sharp and dull ache Relieving factors: Rest (lying, sitting down, pulling L shoulder posteriorly) Aggravating factors: Lifting, overhead activity and movement (reaching, sleeping on L side, WBing through L UE) Hand dominance: Right Patient Goals: Patient goals for therapy: Decreased pain (Be able to lift weights) Objective Postural Observations Seated posture: poor Correction of posture: makes symptoms better Additional Postural Observation Details Pt sits and stands with L shoulder anterior and internally rotated. All body movements are guarded with L shoulder held in sling position. Palpation Left Hypertonic in the levator scapulae, pectoralis minor and upper trapezius. Tenderness of the levator scapulae, pectoralis minor and upper trapezius. Tenderness Left Shoulder Tenderness in the biceps tendon (proximal). Active Range of Motion Left Shoulder Flexion: 125 degrees with pain Abduction: 103 degrees with pain External rotation BTH: C7 with pain Internal rotation BTB: T7 with pain Right Shoulder Normal active range of motion Passive Range of Motion Left Shoulder Flexion: 110 degrees with pain Abduction: 125 degrees with pain External rotation 90??: 64 degrees with pain Internal rotation 90??: 55 degrees with pain Additional Passive Range of Motion Details Pt actively resists PROM L shoulder, especially flexion. Scapular Mobility Left Shoulder Scapular mobility: fair Right Shoulder Scapular mobility: good Strength/Myotome Testing Left Shoulder Planes of Motion Flexion: 4- Abduction: 4- External rotation at 0??: 4- Internal rotation at 0??: 4- Right Shoulder Normal muscle strength Additional Strength Details Pt does not tolerate resisted L shoulder motions well due to pain. Physical Therapy Certification Form - Joint Treatment Today: Initial Evaluation completed with patient education on evaluation findings and plan of care Postural Education: Pt instructed in proper position of L shoulder in front of mirror. HEP instruction: wall slides in flexion and abduction, ER behind head, IR behind back with R hand assist as needed Outcome tool: SPADI Score: 44/130 Neuro Reeducation kinesiotape to unweight L UE and pull L shoulder poseriorly, postural instructionin front of mirror Therapy Exercise HEP of L shoulder ROM as above Timed Code Tx Minutes 30 Units 2 Total Tx Time 50 20 Therapeutic Exercise, 10 Neuromuscular Re-ed, 20 Mod Therapy Diagnosis: Pain in Joint - left shoulder joint Stiffness- left shoulder joint Muscle weakness (generalized-multiple) Disorder of Muscle- unspecified tightness Postural dysfunction Patient demonstrated Good understanding of above education and HEP. Rehab Potential Good Assessment: Pt is a 21 year old male presenting with L shoulder pain, decreased shoulder ROM and strength, and postural dysfunction affecting reaching, lifting, sleeping on L side and WBing through LUE. 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 Pt will benefit from skilled PT to address above deficits and enable him to return to prior level of function. Pain was reduced and ROM increased with application of kinesiotape to position shoulder to reduce impingement. Therapy Goals: (Goals to be met by D/C) 1. Increase ROM/ flexibility of L shoulder to WFL and painfree to increase tolerance to reaching and lying on L side 2. Good Posture/body Mechanics to reduce frequency of symptoms and increase tolerance to lifting 3. Independent HEP in ROM and strengthening L shoulder and postural exercises 4. Decrease pain to 1/10 at worst with UE activity 5. Decrease muscle spasm/tissue tension throughout cervical and L shoulder region to enable pt to perform ADLs without pain 6. Increase strength L shoulder to 4+/5 to increase tolerance to lifting and WBing through L UE Assessment Eval Complexity Personal Factor/Co-morbidities: 1-2 (Mod) Chronicity, Fear of Movement Examination of Body Systems Needing Addressed: 3 or more (Mod) Carrying and Handling Deficits, Muscle Tension, Sleep Deficits, UE Deficits, Work Task Deficits Clinical Presentation of Patient: Evolving (Mod) Evolving and changing characteristics - Varying Pain with Activity Clinical Decision Making: Mod Patient to be seen for: body mechanics education, flexibilty, home exercise program, instruction inself-help/behavior modification, manual therapy, neuromuscular reeducation, posture education, ROM,strengthening Next Visit: Review HEP and patient education, recheck L shoulder ROM, begin light shoulder strengthening. Frequency: 2 times per 6 week for 12 visits. 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
--- OUTSIDE RECORDS SUMMARY | 2024-09-30 01:35 | XMS_ITS | Encounter Summary ---
Author Organization [facility] Address [address] [place] [address]. [place], [place] [id number] [place] [address] Care Team Providers Care Plaster Pattern Caster Name Role Phone France Quinonez MD Primary Care Provider [phone] Reason for Visit * Reason Comments Image (SCAN) Encounter Details Date Type Department Care Team (Latest Contact Info) Description 08/26/2021 Scan [facility] Scanned, Documents Image (SCAN) Social History Tobacco Use Types Packs/Day Years Used Date Smoking Tobacco: Never Assessed PHQ-2 Answer Date Recorded PHQ-2 Score - If the patient scores above 3, please move on to questions 3-9 1 09/22/2021 Sex and Gender Information Value Date Recorded Sex Assigned at Not on file 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 No / Unsure 09/22/2021 8:42 AM ERGONOMIC SPECIALIST documented as of this encounter Plan of Treatment Not on file documented as of this encounter Procedures Procedure Name Priority Date/Time Associated Diagnosis Comments IMAGE GENERIC 08/26/2021 documented in this encounter Results * IMAGE GENERIC (08/26/2021) Anatomical Region Laterality Modality Other 08/26/2021 Narrative 08/26/2021 Ordered by an unspecified provider. us Documents Scanned SCANNING Final Result documented in this encounter Visit Diagnoses Not on filedocumented in this encounter Care Teams Plaster Pattern Caster Relationship Specialty Start Date End Date France Quinonez MD [facility] [address] [address] PCP - General INTERNAL MEDICINE 09/22/21 12/29/23 documented as of this encounter
--- OUTSIDE RECORDS SUMMARY | 2024-09-30 01:35 | XMS_ITS | Encounter Summary ---
Author Organization [facility] Address [address] [place] [address]. [place], [place] [address] [place] [address] Care Team Providers Care Implementation Coordinator Name Role Phone France uQinonez MD Primary Care Provider [phone] Encounter Details Date Type Department Care Team (Latest Contact Info) Description 09/22/2021 Travel Social History Tobacco Use Types Packs/Day Years Used Date Smoking Tobacco: Never Smokeless Tobacco: Never Comments:counseled by Dr Elise khan Alcohol Use Standard Drinks/Week Comments Not Currently 0 (1 standard drink = 0.6 oz pur e alcohol) PHQ-2 Answer Date Recorded PHQ-2 Score - If the patient scores above 3, please move on to questions 3-9 1 09/22/2021 Sex and Gender Information Value Date Recorded Sex Assigned at Not on file 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 No / Unsure 09/22/2021 8:42 AM KIER TENDER documented as of this encounter Plan of Treatment Not on file documented as of this encounter Visit Diagnoses Not on filedocumented in this encounter Additional Health Concerns Assessment Noted Time PHQ-9 Depression Total Score: 7 09/22/20 9:37 AM KIER TENDER documented as of this encounter Care Teams Implementation Coordinator Relationship Specialty Start Date End Date France Quinonez MD [address] [address] PCP - General INTERNAL MEDICINE 12/13/21 3/20/24 documented as of this encounter
--- OUTSIDE RECORDS SUMMARY | 2024-09-30 01:35 | XMS_ITS | Encounter Summary ---
Author Organization [facility] Address [address] [place] [address]. [place], [place] [address] [place] [address] Care Team Providers Care Towel Rolling Machine Operator Name Role Phone France Quinonez MD Primary Care Provider [phone] Reason for Referral * Imaging (Routine) - Closed Specialty Diagnoses / Procedures Referred By Ryan mckeon Referred To Contact RADIOLOGY Diagnoses Chronic left shoulder pain Procedures MRI SHOULDER LT WO CON France Quinonez MD [address] [place], [place] [id number] Phone: tel: fax: Referral ID Status Reason Start Date Expiration Date Visits Re quested Visits Authorized [id number] Closed 05/22/2022 11/18/2022 1 1 * Physical Medicine (Routine) - Closed Specialty Diagnoses / Procedures Referred By Ryan mckeon Referred To Contact PHYSICAL THERAPY / [facility] Physical Therapy Diagnoses Chronic left shoulder pain France Quinonez MD [address] [place] [address] Phone: tel: fax: [facility] Physical Therapy [address] [place] [address] Phone: tel: fax: Referral ID Status Reason Start Date Expiration Date V isits Requested Visits Authorized [id number] Closed Physical Therapy 05/05/2022 06/04/2023 10 10 Scheduling Instructions Please schedule at the [place]. 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 No / Unsure 05/05/2022 6:53 AM CDT documented as of this encounter Last Filed Vital Signs Vital Sign Reading Time Taken Comments Blood Pressure 127/56 05/05/2022 7:19 AM CDT Pulse 67 05/05/2022 7:19 AM CDT Temperature 35.9 ??C (96.7 ??F) 05/05/2022 7:19 AM CD T Respiratory Rate 18 05/05/2022 7:19 AM CDT Oxygen Saturation 98% 05/05/2022 7:19 AM CDT Inhaled Oxygen Concentration - - Weight 103.4 kg (228 lb) 05/05/2022 7:19 AM CDT Height 182.9 cm (6') 05/05/2022 7:19 AM CDT Body Mass Index 30.92 05/05/2022 7:19 AM CDT documented in this encounter Patient Instructions * Patient Instructions* France Quinonez MD - 05/05/2022 7:40 AM CDT Follow up with me in 8 weeks for the left shoulder pain. * Attachments The following attachments cannot be sent through Care Everywhere. * Shoulder Bursitis Exercises (Spanish) documented in this encounter Progress Notes * France Quinonez MD - 05/05/2022 7:40 AM CDTSummary: Acute visit note Images from the original note were not included. Internal Medicine Outpatient Progress Note CC: Shoulder Pain (Left shoulder, c/o numbness at times) and Med Refills (tizanadine) HPI: Richard Del Toro is a 21-year-old male who presents for follow-up for left shoulder pain that is recently bothering patient. This is a chronic issue. Patient tells me he has been experiencing intermittentepisodes of sharp pain in the left shoulder. He was seen a couple of months ago for the same problem however due to the pandemic, patient decided to hold off on further management. She comes in todayfor follow-up as symptoms have gotten worse. He describes the pain as moderate and rates it about 7/10. He tells me there is associated numbness and tingling that runs down the left upper extremity. Pain is disabling. He previously was unable to abduct the left shoulder and tells me he currently is able to do some but with limitation. Mild associated decreased strength in left upper extremity butno atrophy or weakness. No prior trauma that patient can recall. No associated swelling. Patient currently has been using tizanidine which helps some. Also using [id number] Tylenol which helps some. Patient concerned as a result of persistent nature of symptoms and decided to report at today's visit. Problem List Patient Active Problem List Diagnosis [...] Outpatient Medications Marked as Taking for the 05/05/22 encounter (Office Visit) with France Quinonez MD Medication Sig Dispense Refill ??? [START ON 05/11/2022] meloxicam (MOBIC) 15 MG tablet Take 1 tablet (15 mg total) by mouth daily as needed. Use for left shoulder pain 30 tablet 1 ??? methylPREDNISolone, GERALDO, (MEDROL DOSEPAK) 4 MG tablet 6 TABLETS ON DAY ONE, 5 TABLETS DAY TWO, 4 TABLETS DAY THREE, 3 TABLETS DAY FOUR, 2 TABLETS DAY FIVE, AND 1 TABLET DAY SIX 1 each 0 ??? naproxen 500 MG tablet Take 1 tablet (500 mg total) by mouth 2 (two) times daily with meals. 20tablet 0 ??? tiZANidine (ZANAFLEX) 4 MG tablet Take 1 tablet (4 mg total) by mouth nightly at bedtime. 30 tablet 0 ??? tiZANidine HCl 2 MG Cap Take 1 tablet by mouth nightly as needed. 20 capsule 0 Allergies: No Known Allergies Review of Systems Constitutional: Negative for chills, diaphoresis, fever, malaise/fatigue and weight loss. HENT: Negative. Eyes: Negative. Respiratory: Negative. Cardiovascular: Negative for chest pain, palpitations, orthopnea, claudication, leg swelling and PND. Gastrointestinal: Negative. Genitourinary: Negative. Musculoskeletal: Positive for joint pain. Negative for back pain, falls, myalgias and neck pain. Neurological: Positive for tingling. Negative for dizziness, tremors, sensory change, speech change, focal weakness, seizures, loss of consciousness, weakness and headaches. Objective: Filed Vitals: 05/05/22 0719 BP: 127/56 Pulse: 67 Resp: 18 Temp: 96.7 ??F (35.9 ??C) TempSrc: Temporal SpO2: 98% Weight: 103.4 kg (228 lb) Height: 6' (1.829 m) Body mass index is 30.92 kg/m??. General alert, cooperative, no distress HEENT [...] deficits, motor strength is grossly normal and symmetric; Reflexes normal Psych Normal mood and affect MSK mild left shoulder joint tenderness. Patient able to flex, extend but has some difficulty with abduction and external rotation. No obvious atrophy of the left upper extremity muscles. Lymph No cervical or supraclavicular adenopathy Assessment and Plan: Encounter Diagnose(s) ICD-10-CM ICD-9-CM SNOMED CT(R) 1. Chronic left shoulder pain M25.512 719.41 CHRONIC PAIN OF LEFT UPPER LIMB Ambulatory referral toPhysical Therapy G89.29 338.29 MRI SHOULDER LT WO CON methylPREDNISolone, GERALDO, (MEDROL DOSEPAK) 4 MG tablet tiZANidine (ZANAFLEX) 4 MG tablet meloxicam (MOBIC) 15 MG tablet 1. Chronic left shoulder pain - Ambulatory referral to Physical Therapy - MRI SHOULDER LT WO CON; Future - methylPREDNISolone, GERALDO, (MEDROL DOSEPAK) 4 MG tablet; 6 TABLETS ON DAY ONE, 5 TABLETS DAY TWO, 4TABLETS DAY THREE, 3 TABLETS DAY FOUR, 2 TABLETS DAY FIVE, AND 1 TABLET DAY SIX Dispense: 1 each; Refill: 0 - tiZANidine (ZANAFLEX) 4 MG tablet; Take 1 tablet (4 mg total) by mouth nightly at bedtime. Dispense: 30 tablet; Refill: 0 - meloxicam (MOBIC) 15 MG tablet; Take 1 tablet (15 mg total) by mouth daily as needed. Use for left shoulder pain Dispense: 30 tablet; Refill: 1 -Recent worsening symptoms. This is chronic. Currently having numbness and tingling down the left upper extremity. Rest, ice and elevation encouraged. Patient will benefit from getting an MRI. X-ray of the left shoulder done a few months ago unremarkable. -AVS with instructions on exercising Counseling given: Yes Comment: counseled by Dr [...] was at least in part performed using [employer] [place] and there may be some inherent flaws in this combiner due to the nature of this program. France Quinonez MD Internal Medicine [facility], [facility]. 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
--- OUTSIDE RECORDS SUMMARY | 2024-09-30 01:35 | XMS_ITS | Encounter Summary ---
Author Organization [facility] Address [address] [place] [address]. 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 Name Role Phone France Quinonez MD Primary Care Provider [phone] Reason for Referral * Physical Medicine (Urgent) - Closed Specialty Diagnoses / Procedures Referred By Contac t Referred To Contact PHYSICAL THERAPY / [facility] Physical Therapy Diagnoses Acute pain of left shoulder France Quinonez MD [address] [place] [address] Phone: tel: fax: [facility] Physical Therapy [address] [place] [id number] Phone: tel: fax: Referral ID Status Reason Start Date Expiration Date V isits Requested Visits Authorized [id number] Closed Physical Therapy 09/22/2021 10/22/2022 1 1 [employer] ADVERTISING * Imaging (Routine) - Closed Specialty Diagnoses / Procedures Referred By Contac t Referred To Contact RADIOLOGY Diagnoses Acute pain of left shoulder Procedures MRI SHOULDER LT WO CON France Quinonez MD [address] [address] Phone: tel: fax: Referral ID Status Reason Start Date Expiration Date Visits Re quested Visits Authorized [id number] Closed 09/22/2021 10/22/2022 1 1 [employer] ADVERTISING Reason for Visit * Reason Comments New Patient establish care, c/o of left shoulder pain that started about a month ago Encounter Details Date Type Department Care Team (Latest Contact Info) Description 09/22/2021 9:00 AM DIRECTOR ADVERTISING Office Visit [facility] [place] [address] [place] [address] [address] [place] [address] France Quinonez MD [address] [facility] [address] [place] [address] New Patient (establish care, c/o of left shoulder pain that started about a month ago) Social History Tobacco Use Types Packs/Day Years Used Date Smoking Tobacco: Never Smokeless Tobacco: Never Tobacco Cessation:Counseling Given: Yes Comments:counseled by Dr Quinonez Alcohol Use Standard Drinks/Week Comments Not Currently 0 (1 standard drink = 0.6 oz pur e alcohol) PHQ-2 Answer Date Recorded PHQ-2 Score - If the patient scores above 3, please move on to questions 3-9 1 09/22/2021 Sex and Gender Information Value Date Recorded Sex Assigned at Not on file Legal Sex Male 8:49 AM DIRECTOR ADVERTISING Gender Identity Not on file Sexual Orientation Not on file COVID-19 Exposure Response Date Recorded In the last month, have you been in contact with someone who was confirmed or suspected to have Coronavirus / COVID-19? No / Unsure 09/22/2021 8:42 AM DIRECTOR ADVERTISING documented as of this encounter Last Filed Vital Signs Vital Sign Reading Time Taken Comments Blood Pressure 131/71 09/22/2021 9:00 AM DIRECTOR ADVERTISING Pulse 82 09/22/2021 9:00 AM DIRECTOR ADVERTISING Temperature 36.7 ??C (98.1 ??F) 09/22/2021 9:00 AM CS T Respiratory Rate 17 09/22/2021 9:00 AM DIRECTOR ADVERTISING Oxygen Saturation 98% 09/22/2021 9:00 AM DIRECTOR ADVERTISING Inhaled Oxygen Concentration - - Weight 106.1 kg (234 lb) 09/22/2021 9:00 AM DIRECTOR ADVERTISING Height 182.9 cm (6') 09/22/2021 9:00 AM DIRECTOR ADVERTISING Body Mass Index 31.74 09/22/2021 9:00 AM DIRECTOR ADVERTISING documented in this encounter Patient Instructions * Patient Instructions* France Quinonez MD - 09/22/2021 9:00 AM DIRECTOR ADVERTISING Images from the original note were not included. Follow up in 4 weeks. Patient Education Patient Education Shoulder Pain Discharge Instructions About this topic Your shoulder joint is made of 3 bones. These are the upper arm bone, the shoulder blade, and the collarbone. The shoulder is a ball and socket joint. The ball part of the joint is the top part of your upper arm bone. The socket part of your joint is a cup shaped indentation in your shoulder blade. Because of this, the shoulder can move in many ways. Strong bands of tissue called ligaments help hold the shoulder in place. Muscles and tendons also hold it in place. You can have pain in your shoulder for many reasons. It may be hard for the doctor to tell exactly where the pain is coming from. You can have pain in your muscles, bones, or joints. It can also happen in your tendons and ligaments which connect these together. Causes of this kind of pain may include: ?? Overuse or using muscles in the same way over and over ?? Trauma from falls, accidents, direct blows to muscles, and injuries such as bone breaks, sprains, or dislocations ?? Strain on your muscles from bad posture What care is needed at home? ?? Ask your doctor what you need to do when you go home. Make sure you ask questions if you do not understand what the doctor says. This way you will know what you need to do. ?? Rest. Allow your injury to heal before you do slow movements. ?? Place an ice pack or a bag of frozen peas wrapped in a towel over the painful part. Never put ice right on the skin. Do not leave the ice on more than 10 to 15 minutes at a time. ?? Prop your arm on pillows to help with swelling. ?? Your doctor may want you to use a sling, strap, or sleeve to keep your shoulder from moving. ?? Heat may be used but not right after an injury. Heat can make swelling worse. If your doctor tells you to use heat, put a heating pad on your shoulder for no more than 20 minutes at a time. Never go to sleep with a heating pad on as this can cause boyd. ?? Do range of motion exercises as your therapist or doctor teaches you to do. As your shoulder heals, you will be given more exercises to stretch and strengthen your shoulder. What follow-up care is needed? ?? Your doctor may ask you to make visits to the office to check on your progress. Be sure to keep all these visits. ?? Your doctor may send you to physical therapy or occupational therapy to help you regain use of your shoulder sooner. What drugs may be needed? The doctor may order drugs to: ?? Help with pain and swelling The doctor may give you a shot of an anti-inflammatory drug called a corticosteroid. This will helpwith swelling. Talk with your doctor about the risks of this shot. Will physical activity be limited? Your doctor may ask you to rest and limit your activity. Based on how bad your shoulder injury is, this could last for a few days to a number of weeks. What can be done to prevent this health problem? ?? Stay active and work out to keep your muscles strong and flexible. ?? Warm up slowly and stretch your muscles before you work out. Do not work out if you are overly tired. Take extra care if working out in cold weather. ?? Slowly increase the amount of time you work out. If you are using weights, slowly increase the weight to strengthen your muscles. ?? Wear protection when playing sports. ?? Take breaks often when doing things that use repeat movements. When do I need to call the doctor? ?? Pain or swelling gets worse ?? Hand feels cold or numb ?? You are not feeling better in 2 or 3 days or you are feeling worse Teach Back: Helping You Understand The Teach Back Method helps you understand the information we are giving you. After you talk with the staff, tell them in your own words what you learned. This helps to make sure the staff has described each thing clearly. It also helps to explain things that may have been confusing. Before going home, make sure you can do these: ?? I can tell you about my condition. ?? I can tell you what may help ease my pain. ?? I can tell you what I will do if I have more pain or swelling or my fingers are cool or blue. Where can I learn more? [employer] http://orthoinfo.aaos.org/PDFs/L26362.pdf Last Reviewed Date 2020-07-05 Consumer Information Use and Disclaimer This information is not specific medical advice and does not replace information you receive from your health care provider. This is only a brief summary of general information. It does NOT include all information about conditions, illnesses, injuries, tests, procedures, treatments, therapies, discharge instructions or life-style choices that may apply to you. You must talk with your health care provider for complete information about your health and treatment options. This information should not be used to decide whether or not to accept your health care provider???s advice, instructions or recommendations. Only your health care provider has the knowledge and training to provide advice that is right for you. Copyright Copyright ?? 2020 [employer]. and its affiliates and/or licensors. All rights reserved. Patient Education Patient Education Frozen Shoulder Exercises About this topic A frozen shoulder is a condition where you cannot move your shoulder because of pain and stiffness.The area around your shoulder joint becomes tight and the capsule around the joint thickens. You may have a frozen shoulder if you are not able to move your arm or shoulder for a long time. This may be because you have a broken arm or from shoulder surgery. Sometimes a frozen shoulder happens for no apparent reason. There may be some movements that are harder for you to do than others. You may have problems when you: ?? Rotate your arm outward ?? Lift your shoulder to the side or front ?? Move your arm behind your back Exercises can help ease the pain and make this problem better. General Before starting with a program, ask your doctor if you are healthy enough to do these exercises. Your doctor may have you work with a wellness trainer or physical therapist to make a safe exercise program to meet your needs. Stretching Exercises Stretching exercises keep your muscles flexible. They also stop them from getting tight. Start by doing each of these stretches 2 to 3 times. In order for your body to make changes, you will need to hold these stretches for 20 to 30 seconds. Try to do the stretches 2 to 3 times each day. Do all exercises slowly. Stretches may be slightly uncomfortable. If you have any sharp pain, back off a little and do not push as far. ?? Table stretches ? Sitting on an office chair with wheels works well for these exercises. If you don???t have a chair with wheels, use a regular chair and place a towel under your arm. Sit about a foot away from the table or desk. ? Forward ? Put your arm on the table. Keep your elbow straight and lean forward until you feel a stretch. Now, lean further forward or push the chair backwards to get more of a stretch. ? Sideways ? Turn the chair sideways. Put your arm on the table. Make sure your thumb is pointed up. Keep your elbow straight and lean towards the table until you feel a stretch. Now, lean further orpush the chair away from the table to get more of a stretch. ? Bent arm rotations ? Turn the chair sideways. Put your lower arm on the table with your elbow bent in a 90 degree angle. Lean forward until you feel a stretch. ?? External rotation door stretches ? manufacturing automation engineer an open doorway. Bend your elbow to 90 degrees and put your hand on the door frame. Turn your body outwards until you feel a stretch in the shoulder. ?? Back shoulder stretches ? Stand up straight with legs wide apart or sit up tall on a chair. Cross your arm across your body at shoulder level. Using the other arm, pull the crossed arm towards theother shoulder. Repeat using the other arm. ?? Internal rotation towel stretches ? To stretch your left shoulder, put your left hand behind your back at your waist. Toss a towel over your right shoulder. Grab the bottom of the towel with your left hand. Gently, pull the towel up with your right hand, allowing your left hand to slide up your spine. Pull until you feel a good stretch at the front of your shoulder. Switch hands to stretch your right shoulder. ?? Cane shoulder exercises: ? Overhead flexions ? Lie down or stand and grab the cane with both hands. Start with your arms straight and the cane resting on your upper legs. Keep your arms straight and lift the cane over your head. ? Abductions or wqmb-ev-vrjy motion ? Stand and grab the cane with both hands. Turn your thumbs to the right to stretch your right shoulder. Start with your arms straight and the cane resting on yourupper legs. Push the cane to the right, raising your right arm. Keep your right elbow straight. Keep pushing until you feel a good stretch. Switch the position of your hands to point your thumbs to the left and push the cane left to stretch your left shoulder. ? External rotations or rtxo-ec-ujhu rotations ? Lie down or stand and grab the cane with both hands. Start with your elbows bent and touching your body. Put the tip of the cane in the palm of your right hand to stretch your right shoulder. Grab the cane at the other end with your left hand. Push the cane sideways into your right palm until you feel a stretch in your shoulder. Be sure to keep your right elbow close to your body while you are stretching. Switch hands to stretch the left shoulder. ?? Your doctor may also want you to use an overhead chandni for exercises. What will the results be? ?? Less pain and stiffness ?? Better range of motion and flexibility ?? Easier to do daily activities Helpful tips ?? Stay active and work out to keep your muscles strong and flexible. ?? Eat a healthy diet to keep your muscles healthy. ?? Be sure you do not hold your breath when exercising. This can raise your blood pressure. If you tend to hold your breath, try counting out loud when exercising. If any exercise bothers you, stop right away. ?? Always warm up before stretching. Heated muscles stretch much easier than cool muscles. Stretching cool muscles can lead to injury. ?? Try swinging your arms at an easy pace for a few minutes to warm up your muscles. Do this again after exercising. ?? Never bounce when doing stretches. ?? After exercising, it is a good idea to use ice. Place an ice pack or a bag of frozen peas wrapped in a towel over the painful part. Never put ice right on the skin. Do not leave the ice on more than 10 to 15 minutes at a time. Ice after activity may help decrease pain and swelling. Never ice before stretching. ?? Doing exercises before a meal may be a good way to get into a routine. ?? Exercise may be slightly uncomfortable, but you should not have sharp pains. If you do get sharppains, stop what you are doing. If the sharp pains continue, call your doctor. ?? Water exercises or swimming may help ease shoulder stiffness. Where can I learn more? [employer] http://orthoinfo.aaos.org/topic.cfm?swquz=d55680 [facility] Choices http://www.nhs.uk/Conditions/Frozen-shoulder/Pages/Treatment.aspx Last Reviewed Date 2021-04-07 Consumer Information Use and Disclaimer This information is not specific medical advice and does not replace information you receive from your health care provider. This is only a brief summary of general information. It does NOT include all information about conditions, illnesses, injuries, tests, procedures, treatments, therapies, discharge instructions or life-style choices that may apply to you. You must talk with your health care provider for complete information about your health and treatment options. This information should not be used to decide whether or not to accept your health care provider???s advice, instructions or recommendations. Only your health care provider has the knowledge and training to provide advice that is right for you. Copyright Copyright ?? 2020 [employer] and its affiliates and/or licensors. All rights reserved. CTOR ADVERTISING CTOR ADVERTISING documented in this encounter Progress Notes * France Quinonez MD - 09/22/2021 9:00 AM CSTSummary: New patient notes Images from the original note were not included. ANNUAL PHYSICAL NOTES Encounter Date: 09/22/2021 Chief Complaint: 21-year-old male presents for New Patient (establish care, c/o of left shoulder pain that started about a month ago) HPI The patient is being seen for a health maintenance evaluation and to establish care. Her mother Ivy is here with him today. Patient with history of autism and attention deficit hyperactive disorder currently not on any medications comes in today to establish care. At today's visit, patient's main complaint is that of left shoulder pain. He rates his pain as a 7/10. His pain started about a month ago. He did go to an urgent care initially to be evaluated. X-rayof the shoulder done was negative for any injuries or fractures. He denies any trauma prior to the episode. 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 He is unsure if sleeping positions may have precipitated this. He is currently taking Tylenol which does not really help. He notes mild weakness in the left upper extremity with grasping. Denies any numbness or tingling. Denies any neck pain or injuries. This is the first episode of such. Pain radiates down the left shoulder. No prior surgeries. He has also been taking marijuana to help with pain. Patient concerned and therefore decided to report. He has since not had any physical therapy. Patient Active Problem List Diagnosis ??? Autism ??? Attention deficit hyperactivity disorder (ADHD), predominantly inattentive type Previous provider(s): none Reason for new provider: Needed a new provider as he recently relocated from [place] where his identical twin brother lives Annual physical: None Medical conditions:Autism and ADHD Medications: none Immunizations: flu and tdap Colonoscopy:none Diet:regular Exercise: active Occupation: load and off loads [employer] at [employer] Marital status: single Children: no child yet General Health: good Dental Health: Rare dental visits Vision Health: Wears glasses Hearing Health: No hearing problems Immunizations Needed: Influenza, Tdap, COVID and HPV Weight: Obese Body mass index is 31.74 kg/m??. Physical Activity: Acitve lifestyle Prostate Cancer Screening: none Testicular Cancer Screening: None Colorectal Cancer Screening: None Metabolic Screening: Patient needs to be screened today. HCV Screening: done PHQ-9 Screening Score: PHQ-9: Over the last two weeks, how often have you been bothered by any of the following problems? 09/22/2021 LITTLE INTEREST OR PLEASURE IN DOING THINGS 1-Several Days FEELING DOWN, DEPRESSSED,OR HOPELESS 0-Not at All PHQ2 DEPRESSION TOTAL SCORE 1 TROUBLE FALLING OR STAYING ASLEEP OR SLEEPING TOO MUCH 3-Nearly every day FEELING TIRED OR HAVING LITTLE ENERGY 1-Several Days POOR APPETITE OR OVEREATING 0-Not at All FEELING BAD ABOUT YOURSELF 0-Not at All TROUBLE CONCENTRATING ON THINGS 1-Several Days MOVING OR SPEAKING SO SLOWLY THAT OTHER PEOPLE COULD HAVE NOTICED 1-Several Days THOUGHTS THAT YOU WOULD BE BETTER OFF 0-Not at All DEPRESSION SCREENING TOTAL SCORE 7 IF YOU CHECKED OFF ANY PROBLEMS Somewhat difficult PACHECO-7 (Generalized Anxiety Disorder) Screening PACHECO-7 09/22/2021 Feeling nervous, anxious and on edge 0 - not at all Not being able to stop or control worrying 1 - several days Worrying too much about different things 1 - several days Trouble Relaxing 1 - several days Being so restless that it's hard to sit still 1 - several days Becoming easily annoyed or irritable 2 - more than half the days Feeling afraid as if something awful might happen 0 - not at all Total Score 6 If you checked off any problems, how difficult have those problems made it for you to do your work take care of things at home or get along with other people? not difficult at all Smoking Status: History Smoking Status ??? Never Smoker Smokeless Tobacco ??? Never Used Comment: counseled by Dr Quinonez Patient does not meet criteria for Low Dose CT screening Sleep Apnea Risk Factors: None Review of Systems Constitutional: Negative. HENT: Negative. Eyes: Negative. Respiratory: Negative. Cardiovascular: Negative. Gastrointestinal: Negative. Genitourinary: Negative. Musculoskeletal: Positive for joint pain (Left shoulder pain). Negative for back pain, falls, myalgias and neck pain. Skin: Negative. Neurological: Positive for focal weakness (Left shoulder and upper extremity). Negative for dizziness, tingling, tremors, sensory change, speech change, seizures, loss of consciousness, weakness and headaches. Psychiatric/Behavioral: Negative. History reviewed. No pertinent past medical history. History reviewed. No pertinent surgical history. Family History Problem Relation Name Age of Onset ??? Cancer Mother thyroid Social History Socioeconomic History ??? Marital status: Single Spouse name: Not on file ??? Number of children: Not on file ??? Years of education: Not on file ??? Highest education level: Not on file Occupational History ??? Not on file Tobacco Use ??? Smoking status: Never Smoker ??? Smokeless tobacco: Never Used ??? Tobacco comment: counseled by Dr Quinonez Vaping Use ??? Vaping Use: Never used Substance and Sexual Activity ??? Alcohol use: Not Currently ??? Drug use: Yes Types: Marijuana ??? Sexual activity: Not Currently Other Topics Concern ??? Not on file Social History Narrative ??? Not on file Social Determinants of Health Financial Resource Strain: Not on file Food Insecurity: Not on file Transportation Needs: Not on file Physical Activity: Not on file Stress: Not on file Social Connections: Not on file Intimate Partner Violence: Not on file There is no immunization history for the selected administration types on file for this patient. Current Outpatient Medications Medication Sig Dispense Refill ??? naproxen 500 MG tablet Take 1 tablet (500 mg total) by mouth 2 (two) times daily with meals. 20tablet 0 ??? omeprazole 40 MG capsule Take 1 capsule (40 mg total) by mouth daily. 30 capsule 0 ??? tiZANidine HCl 2 MG Cap Take 1 tablet by mouth nightly as needed. 20 capsule 0 No current facility-administered medications for this visit. No current outpatient medications on file prior to visit. No current facility-administered medications on file prior to visit. No Known Allergies Objective: Filed Vitals: 09/22/21 0900 BP: 131/71 Pulse: 82 Resp: 17 Temp: 98.1 ??F (36.7 ??C) SpO2: 98% Weight: 106.1 kg (234 lb) Height: 6' (1.829 m) Physical Exam Vitals and nursing note reviewed. Constitutional: General: He is not in acute distress. Appearance: Normal appearance. He is not ill-appearing, toxic-appearing or diaphoretic. HENT: Head: Normocephalic and atraumatic. Right Ear: Tympanic membrane, ear canal and external ear normal. There is no impacted cerumen. Left Ear: Tympanic membrane, ear canal and external ear normal. There is no impacted cerumen. Nose: Nose normal. No congestion or rhinorrhea. Mouth/Throat: Mouth: Mucous membranes are moist. Pharynx: Oropharynx is clear. No oropharyngeal exudate or posterior oropharyngeal erythema. Eyes: General: No scleral icterus. Right eye: No discharge. Left eye: No discharge. Extraocular Movements: Extraocular movements intact. Conjunctiva/sclera: Conjunctivae normal. Pupils: Pupils are equal, round, and reactive to light. Neck: Vascular: No carotid bruit. Cardiovascular: Rate and Rhythm: Regular rhythm. Pulses: Normal pulses. Heart sounds: Normal heart sounds. No murmur heard. Pulmonary: Effort: Pulmonary effort is normal. No respiratory distress. Breath sounds: Normal breath sounds. No stridor. No wheezing, rhonchi or rales. Chest: Chest wall: No tenderness. Abdominal: General: Abdomen is flat. There is no distension. Palpations: Abdomen is soft. There is no mass. Tenderness: There is no abdominal tenderness. There is no right CVA tenderness, left CVA tenderness, guarding or rebound. Hernia: No hernia is present. Musculoskeletal: Cervical back: Normal range of motion and neck supple. No rigidity or tenderness. Lymphadenopathy: Cervical: No cervical adenopathy. Skin: General: Skin is warm. Coloration: Skin is not jaundiced or pale. Findings: No bruising, erythema, lesion or rash. Comments: Fair skinned and lots of freckles. Neurological: Mental Status: He is alert and oriented to person, place, and time. Cranial Nerves: No cranial nerve deficit. Sensory: No sensory deficit. Motor: Weakness (The power in the left upper extremity 4/5. No sensory deficits. Weak grasp in the left hand.) present. Coordination: Coordination normal. Gait: Gait normal. Deep Tendon Reflexes: Reflexes normal. Psychiatric: Behavior: Behavior normal. Thought Content: Thought content normal. Judgment: Judgment normal. Assessment & Plan: Encounter Diagnose(s) ICD-10-CM ICD-9-CM SNOMED CT(R) 1. Annual physical exam Z00.0.0 PATIENT ENCOUNTER STATUS CBC W/DIFF AUTOMATED COMPREHENSIVE METABOLIC PANEL LIPID PANEL TSH W/REFLEX HEMOGLOBIN, GLYCOSYLATED HEPATITIS C ANTIBODY VITAMIN D, 25 OH URINALYSIS AUTO DIP ALBUMIN URINE RANDOM VENIPUNC ARM DRAW VITAMIN D, 25 OH HEPATITIS C ANTIBODY HEMOGLOBIN, GLYCOSYLATED TSH W/REFLEX LIPID PANEL COMPREHENSIVE METABOLIC PANEL CBC W/DIFF AUTOMATED 2. Encounter for medical examination to establish care Z. V70.9 PATIENT ENCOUNTER STATUS CBC W/DIFF AUTOMATED COMPREHENSIVE METABOLIC PANEL LIPID PANEL TSH W/REFLEX HEMOGLOBIN, GLYCOSYLATED HEPATITIS C ANTIBODY VITAMIN D, 25 OH URINALYSIS AUTO DIP ALBUMIN URINE RANDOM VENIPUNC ARM DRAW VITAMIN D, 25 OH HEPATITIS C ANTIBODY HEMOGLOBIN, GLYCOSYLATED TSH W/REFLEX LIPID PANEL COMPREHENSIVE METABOLIC PANEL CBC W/DIFF AUTOMATED 3. General medical exam Z. V70.9 PATIENT ENCOUNTER STATUS CBC W/DIFF AUTOMATED COMPREHENSIVE METABOLIC PANEL LIPID PANEL TSH W/REFLEX HEMOGLOBIN, GLYCOSYLATED HEPATITIS C ANTIBODY VITAMIN D, 25 OH URINALYSIS AUTO DIP ALBUMIN URINE RANDOM VENIPUNC ARM DRAW VITAMIN D, 25 OH HEPATITIS C ANTIBODY HEMOGLOBIN, GLYCOSYLATED TSH W/REFLEX LIPID PANEL COMPREHENSIVE METABOLIC PANEL CBC W/DIFF AUTOMATED 4. Screening for diabetes mellitus Z13.1 V77.1 PATIENT ENCOUNTER STATUS HEMOGLOBIN, GLYCOSYLATED HEMOGLOBIN, GLYCOSYLATED 5. Screening for hypothyroidism Z13.29 V77.0 PATIENT ENCOUNTER STATUS TSH W/REFLEX TSH W/REFLEX 6. Screening for hyperlipidemia Z13.220 V77.91 PATIENT ENCOUNTER STATUS LIPID PANEL LIPID PANEL 7. Encounter for hepatitis C screening test for low risk patient Z11.59 V73.89 PATIENT ENCOUNTER STATUS HEPATITIS C ANTIBODY HEPATITIS C ANTIBODY 8. Encounter for vitamin deficiency screening Z13.21 V77.99 PATIENT ENCOUNTER STATUS VITAMIN D, 25 OH VITAMIN D, 25 OH 9. Acute pain of left shoulder M25.512 719.41 SHOULDER PAIN MRI SHOULDER LT WO CON Ambulatory referral to Physical Therapy naproxen 500 MG tablet tiZANidine HCl 2 MG Cap MRI SHOULDER LT WO CON 10. Need for dtknnimhor-zflnqlq-osborezuo (Tdap) vaccine Z23 V06.1 REQUIRES DIPHTHERIA, TETANUS ANDPERTUSSIS VACCINATION 11. Gastroesophageal reflux disease without esophagitis K21.9 530.81 GASTROESOPHAGEAL REFLUX DISEASE WITHOUT ESOPHAGITIS omeprazole 40 MG capsule 12. Autism disorder F84.0 299.00 AUTISTIC DISORDER 13. Attention deficit hyperactivity disorder (ADHD), unspecified ADHD type F90.9 314.01 ATTENTION DEFICIT HYPERACTIVITY DISORDER Richard was seen today for new patient. Diagnoses and all orders for this visit: Annual physical exam - Patient past medical, surgical, family history and social history updated. Allergies, immunizations and medications updated. Also did discuss healthy lifestyle including exercising, dietary changes and safe sexual practices as well as safe habits common to patient age group including wearing seat belt when transporting in a vehicle and limiting alcohol and avoiding smoking/second hand smoking. Patient will set up [employer]. Patient will fax over any remaining outside records that would be relevant to care provided. Getting patient's most recent x-ray of the left shoulder which was negative; patient did sign a release form. - CBC W/DIFF AUTOMATED; Future - COMPREHENSIVE METABOLIC PANEL; Future - LIPID PANEL; Future - TSH W/REFLEX; Future - HEMOGLOBIN, GLYCOSYLATED; Future - HEPATITIS C ANTIBODY; Future - VITAMIN D, 25 OH; Future - URINALYSIS AUTO DIP - ALBUMIN URINE RANDOM - VENIPUNC ARM DRAW - VITAMIN D, 25 OH - HEPATITIS C ANTIBODY - HEMOGLOBIN, GLYCOSYLATED - TSH W/REFLEX - LIPID PANEL - COMPREHENSIVE METABOLIC PANEL - CBC W/DIFF AUTOMATED Encounter for medical examination to establish care - Patient past medical, surgical, family history and social history updated. Allergies, immunizations and medications updated. Also did discuss healthy lifestyle including exercising, dietary changes and safe sexual practices as well as safe habits common to patient age group including wearing seat belt when transporting in a vehicle and limiting alcohol and avoiding smoking/second hand smoking. Patient will set up [employer]. Patient will fax over any remaining outside records that would be relevant to care provided. - CBC W/DIFF AUTOMATED; Future - COMPREHENSIVE METABOLIC PANEL; Future - LIPID PANEL; Future - TSH W/REFLEX; Future - HEMOGLOBIN, GLYCOSYLATED; Future - HEPATITIS C ANTIBODY; Future - VITAMIN D, 25 OH; Future - URINALYSIS AUTO DIP - ALBUMIN URINE RANDOM - VENIPUNC ARM DRAW - VITAMIN D, 25 OH - HEPATITIS C ANTIBODY - HEMOGLOBIN, GLYCOSYLATED - TSH W/REFLEX - LIPID PANEL - COMPREHENSIVE METABOLIC PANEL - CBC W/DIFF AUTOMATED General medical exam - CBC W/DIFF AUTOMATED; Future - COMPREHENSIVE METABOLIC PANEL; Future - LIPID PANEL; Future - TSH W/REFLEX; Future - HEMOGLOBIN, GLYCOSYLATED; Future - HEPATITIS C ANTIBODY; Future - VITAMIN D, 25 OH; Future - URINALYSIS AUTO DIP - ALBUMIN URINE RANDOM - VENIPUNC ARM DRAW - VITAMIN D, 25 OH - HEPATITIS C ANTIBODY - HEMOGLOBIN, GLYCOSYLATED - TSH W/REFLEX - LIPID PANEL - COMPREHENSIVE METABOLIC PANEL - CBC W/DIFF AUTOMATED Screening for diabetes mellitus - HEMOGLOBIN, GLYCOSYLATED; Future - HEMOGLOBIN, GLYCOSYLATED Screening for hypothyroidism - TSH W/REFLEX; Future - TSH W/REFLEX Screening for hyperlipidemia - LIPID PANEL; Future - LIPID PANEL Encounter for hepatitis C screening test for low risk patient - HEPATITIS C ANTIBODY; Future - HEPATITIS C ANTIBODY Encounter for vitamin deficiency screening - VITAMIN D, 25 OH; Future - VITAMIN D, 25 OH Acute pain of left shoulder - Symptoms still present with 7/10 pain. Will trial anti-inflammatories at this time, physical therapy and get advanced imaging. He has signed a release form to get his most recent x-ray of the left shoulder. AVS with instructions on exercises for the left shoulder. Based off of imaging results, will decide if patient needs referral to see orthopedic surgeon. Currently no red flag signs symptoms other than mild weakness with grasp. - MRI SHOULDER LT WO CON; Future - Ambulatory referral to Physical Therapy - naproxen 500 MG tablet; Take 1 tablet (500 mg total) by mouth 2 (two) times daily with meals. - tiZANidine HCl 2 MG Cap; Take 1 tablet by mouth nightly as needed. - MRI SHOULDER LT WO CON Need for csgdgisczu-tixxpqw-tsrmxgypf (Tdap) vaccine - Cancel: [[id number]] Adacel (Tdap) Gastroesophageal reflux disease without esophagitis - omeprazole 40 MG capsule; Take 1 capsule (40 mg total) by mouth daily. Autism disorder -Symptoms stable. Does not follow with a neurologist or psychiatrist Attention deficit hyperactivity disorder (ADHD), unspecified ADHD type '-Symptoms stable. Does not follow with a neurologist or psychiatrist. Has been on Vyvanse but has been off for several years. Patient aware to let me know if he is interested in medications. We willcontinue to follow. I spent 20 minutes for his physical and 40 minutes today for EM reviewing the patient's medical record, obtaining history, performing an exam, ordering medications, tests, and/or procedures, documenting in the medical record, referring and/or communicating with other health care providers, counseling and educating the patient/family/caregiver, reviewing and communicating test results and coordination of care. DRAGON: This dictation was at least in part performed using [employer] and there may be some inherent flaws in this edge burnisher due to the nature of this program. MD France AVINA MD Internal Medicine [facility], [facility]. CTOR ADVERTISING CTOR ADVERTISING documented in this encounter Plan of Treatment Scheduled Orders Name Type Priority Associated Diagnoses Orde r Schedule MRI SHOULDER LT WO CON MRI Routine Acute pain of left shoulder Expected: 09/22/2021, Expires: 09/22/2022 Scheduled Referrals Name Type Priority Associated Diagnoses Orde r Schedule Ambulatory referral to Physical Therapy Referral Routine Acute pain of left shoulder Ordered: 09/22/2021 documented as of this encounter Procedures Procedure Name Priority Date/Time Associated Diagnosis Comments TSH W/REFLEX Routine 09/22/2021 9:36 AM DIRECTOR ADVERTISING Annual physical exam Encounter for medical examination to establish care General medical exam Screening for hypothyroidism HEMOGLOBIN, GLYCOSYLATED Routine 09/22/2021 9:36 AM DIRECTOR ADVERTISING Annual physical exam Encounter for medical examination to establish care General medical exam Screening for diabetes mellitus COMPREHENSIVE METABOLIC PANEL Routine 09/22/2021 9:36 AM DIRECTOR ADVERTISING Annual physical exam Encounter for medical examination to establish care General medical exam LIPID PANEL Routine 09/22/2021 9:36 AM DIRECTOR ADVERTISING Annual physical exam Encounter for medical examination to establish care General medical exam Screening for hyperlipidemia HEPATITIS C ANTIBODY Routine 09/22/2021 9:36 AM DIRECTOR ADVERTISING Annual physical exam Encounter for medical examination to establish care General medical exam Encounter for hepatitis C screening test for low risk patient CBC W/DIFF AUTOMATED Routine 09/22/2021 9:36 AM DIRECTOR ADVERTISING Annual physical exam Encounter for medical examination to establish care General medical exam VITAMIN D, 25 OH Routine 09/22/2021 9:36 AM DIRECTOR ADVERTISING Annual physical exam Encounter for medical examination to establish care General medical exam Encounter for vitamin deficiency screening VENIPUNC ARM DRAW Routine 09/22/2021 9:3 2 AM DIRECTOR ADVERTISING Annual physical exam Encounter for medical examination to establish care General medical exam URINALYSIS AUTO DIP Routine 09/22/2021 Annual physical exam Encounter for medical examination to establish care General medical exam ALBUMIN URINE RANDOM W/CREATININE Routine 09/22/2021 Annual physical exam Encounter for medical examination to establish care General medical exam documented in this encounter Results * (ABNORMAL) VITAMIN D, 25 OH (09/22/2021 9:36 AM DIRECTOR ADVERTISING) Pathologist [facility] VITAMIN D 25 HYDROXY TOTAL S/P/B 16.9(L) 20 - 50 NG/ML 09/22/2021 4:39 PM DIRECTOR ADVERTISING [facility] Comment: <10 ng/mL (Severe deficiency) 10 TO 19 ng/mL (Mild to Moderate deficiency) 20 TO 50 ng/mL (Optimum levels) 51 TO 80 ng/mL (Increased risk of hypercalciuria) >80 ng/mL (Toxicity possible) 09/22/2021 9:36 AM DIRECTOR ADVERTISING France Quinonez MD LABORATORY Final Result [facility] [address] [facility] [place] [address], * HEPATITIS C ANTIBODY (09/22/2021 9:36 AM DIRECTOR ADVERTISING) HEPATITIS C AB NON-REACTI VE NON-REACT RAOUL 09/22/2021 9:59 PM DIRECTOR ADVERTISING [facility] Comment: ANTIBODIES TO HCV NOT DETECTED. DOES NOT EXCLUDE THE POSSIBILITY OF EXPOSURE TO HCV. 09/22/2021 9:36 AM DIRECTOR ADVERTISING France Quinonez MD LABORATORY Final Result [facility] [address] [place] [address], [id number] * (ABNORMAL) HEMOGLOBIN, GLYCOSYLATED (09/22/2021 9:36 AM DIRECTOR ADVERTISING) Pathologist [facility] HGB A1C 5.4 3.80 - 5.60 % 09/22/2021 5:24 PM DIRECTOR ADVERTISING [facility] ESTIMATED AVG GLUCOSE 108(H) 74 - 106 MG/DL 09/22/2021 5:24 PM DIRECTOR ADVERTISING [facility] 09/22/2021 9:36 AM DIRECTOR ADVERTISING us France Quinonez MD LABORATORY Final Result Performing Organization Address [facility]/ZIP Co de Phone Number [facility] [address] [place] [address], * TSH W/REFLEX (09/22/2021 9:36 AM DIRECTOR ADVERTISING) Pathologist [facility] TSH 1.985 0.358 - 3.740 uIU/ML 09/22/2021 4:39 PM DIRECTOR ADVERTISING [facility] 09/22/2021 9:36 AM DIRECTOR ADVERTISING us France Quinonez MD LABORATORY Final Result [facility] [address] [place] [address], * (ABNORMAL) LIPID PANEL (09/22/2021 9:36 AM DIRECTOR ADVERTISING) CHOLESTEROL 148 <200 MG/DL 09/22/2021 4:39 PM DIRECTOR ADVERTISING [facility] TRIGLYCERIDES 160(H) <150 MG/DL 09/22/2021 4:39 PM DIRECTOR ADVERTISING [facility] HDL 34(L) >40 MG/DL 09/22/2021 4:39 PM DIRECTOR ADVERTISING [facility] LDL-C 82 <100 MG/DL 09/22/2021 4:39 PM DIRECTOR ADVERTISING [facility] VLDL CALCULATION 32(H) 5 - 28 MG/DL 09/22/2021 4:39 PM [facility] CHOL/HDL RATIO 4.4(H) 0.0 - 4.0 09/22/2021 4:39 PM DIRECTOR ADVERTISING [facility] LDL/HDL 2.4(H) 0.41 - 2.13 09/22/2021 4:39 PM DIRECTOR ADVERTISING [facility] NON HDL CHOLESTEROL 114 <140 MG/DL 09/22/2021 4:39 PM DIRECTOR ADVERTISING [facility] 09/22/2021 9:36 AM DIRECTOR ADVERTISING France Quinonez MD LABORATORY Final Result Performing Organization Address City/[facility] Co de Phone Number [facility] [address] [place] [address], * (ABNORMAL) COMPREHENSIVE METABOLIC PANEL (09/22/2021 9:36 AM DIRECTOR ADVERTISING) SODIUM S/P/B 140 136 - 145 MMOL/L 09/22/2021 4:39 PM DIRECTOR ADVERTISING [facility] POTASSIUM S/P/B 4.2 3.5 - 5.1 MMOL/L 09/22/2021 4:39 PM [facility] CHLORIDE S/P/B 103 98 - 107 MMOL/L 09/22/2021 4:39 PM [facility] CO2 28.3 21 - 32 MMOL/L 09/22/2021 4:39 PM [facility] GLUCOSE 105(H) 70 - 99 MG/DL 09/22/2021 4:39 PM [facility] BUN 20 6 - 24 MG/DL 09/22/2021 4:39 PM [facility] CREATININE S/P/B 0.95 0.70 - 1.30 MG/DL 09/22/2021 4:39 PM [facility] CALCIUM S/P/B 9.0 8.4 - 10.5 MG/DL 09/22/2021 4:39 PM [facility] BILIRUBIN TOTAL S/P/B 0.9 0.2 - 1.0 MG/DL 09/22/2021 4:39 PM [facility] ALKALINE PHOSPHATASE S/P/B 55 45 - 115 U/L 09/22/2021 4:39 PM [facility] AST 27 15 - 37 U/L 09/22/2021 4:39 PM [facility] ALT 61 16 - 63 U/L 09/22/2021 4:39 PM [facility] TOTAL PROTEIN S/P/B 6.9 6.4 - 8.2 G/DL 09/22/2021 4:39 PM [facility] ALBUMIN S/P/B 3.8 3.4 - 5.0 G/DL 09/22/2021 4:39 PM [facility] ANION GAP 8.7 5 - 15 MMOL/L 09/22/2021 4:39 PM [facility] Comment:REFERENCE RANGE NOT ESTABLISHED OSMOLALITY (CALC) 293 MOSM/KG 09/22/2021 4:39 PM DIRECTOR ADVERTISING [facility] Comment:REFERENCE RANGE NOT ESTABLISHED EGFR NON-AFR. AMER. >90 >90 ML/MIN/1 .73 M2 09/22/2021 4:39 PM DIRECTOR ADVERTISING [facility] EGFR AFR. AMER. >90 >90 ML/MIN/1 .73 M2 09/22/2021 4:39 PM DIRECTOR ADVERTISING [facility] GFR NOTES THE ESTIMATED GFR IS CALCULATED USING THE 2009 CKD-EPI EQUATION. THE FOLLOWING CATEGORIES FOR GRADING RENAL FUNCTION ARE RECOMMENDED BY THE INTERNATIONAL SOCIETY OF NEPHROLOGY (KDIGO 2012 CLINICAL PRACTICE GUIDELINE). 09/22/2021 4:39 PM DIRECTOR ADVERTISING [facility] Comment: G1,NORMAL OR HIGH: >89 ml/min/1.73 m2 G2,MILDLY DECREASED: 60-89 ml/min/1.73 m2 G3A,MILDLY TO MODERATELY DECREASED: 45-59 ml/min/1.73 m2 G3B,MODERATELY TO SEVERELY DECREASED: 30-44 ml/min/1.73 m2 G4,SEVERELY DECREASED: 15-29 ml/min/1.73 m2 G5,KIDNEY FAILURE: <15 ml/min/1.73 m2 09/22/2021 9:36 AM DIRECTOR ADVERTISING France Quinonez MD LABORATORY Final Result [facility] [address] [place] [address], * CBC W/DIFF AUTOMATED (09/22/2021 9:36 AM DIRECTOR ADVERTISING) WBC 5.5 4.0 - 10.8 x10'3/uL 09/22/2021 4:41 PM DIRECTOR ADVERTISING [facility] RBC 4.88 4.50 - 6.10 x10'6/uL 09/22/2021 4:41 PM DIRECTOR ADVERTISING [facility] HGB 15.0 13.0 - 18.0 G/DL 09/22/2021 4:41 PM [facility] HCT 44.3 37.0 - 52.0 % 09/22/2021 4:41 PM [facility] MCV 90.8 78.0 - 100.0 FL 09/22/2021 4:41 PM [facility] MCH 30.7 27.0 - 31.0 PG 09/22/2021 4:41 PM [facility] MCHC 33.9 33.0 - 36.0 G/DL 09/22/2021 4:41 PM [facility] RDW 12.1 11.5 - 14.5 % 09/22/2021 4:41 PM [facility] PLT 186 150 - 350 x10'3/uL 09/22/2021 4:41 PM [facility] MPV 9.8 7.4 - 10.4 FL 09/22/2021 4:41 PM [facility] DIFFERENTIAL TYPE AUTOMATED DIFFERENTIAL 09/22/2021 4:41 PM [facility] NEUTROPHILS % 55.2 % 09/22/2021 4:41 PM [facility] LYMPHOCYTES % 31.6 % 09/22/2021 4:41 PM [facility] MONOCYTES % 9.9 % 09/22/2021 4:41 PM [facility] EOSINOPHILS % 2.7 % 09/22/2021 4:41 PM [facility] BASOPHILS % 0.4 % 09/22/2021 4:41 PM [facility] IMMATURE GRANS % 0.2 % 09/22/2021 4:41 PM [facility] ABS. NEUTROPHILS 3.05 1.60 - 8.30 x10'3/uL 09/22/2021 4:41 PM [facility] ABS. LYMPHOCYTES 1.75 0.80 - 4.70 x10'3/uL 09/22/2021 4:41 PM DIRECTOR ADVERTISING [facility] ABS. MONOCYTES 0.55 0.00 - 1.50 x10'3/uL 09/22/2021 4:41 PM DIRECTOR ADVERTISING [facility] ABS. EOSINOPHILS 0.15 0.00 - 0.40 x10'3/uL 09/22/2021 4:41 PM DIRECTOR ADVERTISING [facility] ABS. BASOPHILS 0.02 0.00 - 0.20 x10'3/uL 09/22/2021 4:41 PM DIRECTOR ADVERTISING [facility] ABS. IMMATURE GRANULOCYTES 0.01 0.00 - 0.03 x10'3/uL 09/22/2021 4:41 PM DIRECTOR ADVERTISING [facility] 09/22/2021 9:36 AM DIRECTOR ADVERTISING us France Quinonez MD LABORATORY Final Result [facility] [address] [place] [address], [place] [phone] * ALBUMIN URINE RANDOM (09/22/2021) MICROALBUMIN (U) 10 mg/L MG- [address], [facility] CREATININE RANDOM (U) 50 mg/dL MG[address], [facility] MICROALB/CREAT <30 mg/g MG-[address], [facility] URINE SPECIMEN / Unknown 09/22/2021 us France Quinonez MD URINE ORDERABLES Final Result [facility], [place] [address] [place] [address], [place] [phone] * URINALYSIS AUTO DIP (09/22/2021) COLOR (U) YELLOW MG[address], [facility] TRANSPARENCY CLEAR [address], [facility] GLUCOSE (U) NEGATIVE NEGATIVE MG/DL MG[address], [place] BILIRUBIN (U) NEGATIVE NEGATIVE MG-[address], [facility] KETONES MG/DL (U) NEGATIVE NEGATIVE MG/DL MG-[address], [facility] SPECIFIC GRAVITY (U) 1.020 1.001 - 1.035 MG[address], [facility] BLOOD (U) TRACE (Non Hemolyzed, Intact) NEGATIVE MG-[address], [facility] U PH 8.5 5.0 - 9.0 MG-[address], [facility] PROTEIN (U) NEGATIVE NEGATIVE mg/dL MG-[address], [facility] UROBILINOGEN 0.2 0.2 - 1.0 EU/dL = mg/dL MG-[address], [facility] NITRITES NEGATIVE NEGATIVE MG/DL MG-[address], [facility] LEUKOCYTES (U) NEGATIVE NEGATIVE MG-[address], [place] URINE SPECIMEN OBTAINED BY CLEAN CATCH PROCEDURE / Unknown 09/22/2021 France Quinonez MD URINE ORDERABLES Final Result [facility]-[address], [place] [address] [facility] [address] [place] [address], documented in this encounter Visit Diagnoses Diagnosis Annual physical exam- Primary Routine general medical examination at a health care facility Encounter for medical examination to establish care General medical exam Unspecified general medical examination Screening for diabetes mellitus Screening for hypothyroidism Screening for thyroid disorder Screening for hyperlipidemia Screening for lipoid disorders Encounter for hepatitis C screening test for low risk patient Encounter for vitamin deficiency screening Screening for other and unspecified endocrine, nutritional, metabolic, and immunity disorders Acute pain of left shoulder Need for qwsptaehnd-rckxigz-ernkkmojv (Tdap) vaccine Need for prophylactic vaccination with combined spydxsmpxn-fejrndf-fdvpsgnjq (DTP) vaccine Gastroesophageal reflux disease without esophagitis Esophageal reflux Autism disorder (HHS/HCC) Autistic disorder, current or active state Attention deficit hyperactivity disorder (ADHD), unspecified ADHD type documented in this encounter Additional Health Concerns Assessment Noted Time PHQ-9 Depression Total Score: 7 09/22/20 21 9:37 AM DIRECTOR ADVERTISING documented as of this encounter Care Teams Caramel Coloring Operator Relationship Specialty Start Date End Date France Quinonez MD [address] [place] [address] [address] [place] [address] PCP - General INTERNAL MEDICINE 09/22/21 12/29/23 documented as of this encounter
--- OUTSIDE RECORDS SUMMARY | 2024-09-30 01:35 | XMS_ITS | Encounter Summary ---
Author Organization [facility] Address [address] [place] [address]. [place], [place] [address] [place] [address] Care Team Providers Care Boil Off Machine Operator Cloth Name Role Phone France Quinonez MD Primary Care Provider [phone] Encounter Details Date Type Department Care Team (Latest Contact Info) Description 09/22/2021 - 09/22/2021 11:59 PM EXHAUSTER Hospital Encounter [facility] [address] [place] [address] France Quinonez MD [address] [address] Discharge Disposition: Home or Self Care (Routine [...] on file Legal Sex Male 8:49 AM EXHAUSTER Gender Identity Not on file Sexual Orientation Not on file COVID-19 Exposure Response Date Recorded In the last month, have you been in contact with someone who was confirmed or suspected to have Coronavirus / COVID-19? No / Unsure 09/22/2021 8:42 AM EXHAUSTER documented as of this encounter Medications at Time of Discharge naproxen 500 MG tabletIndications :Acute pain of left shoulder Take 1 tablet (500 mg total) by mouth 2 (two) times daily with meals. 20 tablet 09/22/2021 07/13/2022 omeprazole 40 MG capsuleIndication s:Gastroesophagea l reflux disease without esophagitis Take 1 capsule (40 mg total) by mouth daily. 30 capsule 09/22/2021 04/25/2024 tiZANidine HCl 2 MG CapIndications:Ac yvonne pain of left shoulder Take 1 tablet by mouth nightly as needed. 20 capsule 09/22/2021 09/07/2022 vitamin D2, ergocalciferol, 01300 UNITS capsuleIndication s:Vitamin D deficiency Take 1 capsule (50,000 Units total) by mouth weekly. 12 capsule 09/22/2021 09/07/2022 documented as of this encounter Plan of Treatment Not on file documented as of this encounter Visit Diagnoses Not on filedocumented in this encounter Additional Health Concerns Assessment Noted Time PHQ-9 Depression Total Score: 7 09/22/20 9:37 AM EXHAUSTER documented as of this encounter Care Teams Boil Off Machine Operator Cloth Relationship Specialty Start Date End Date France Quinonez MD [address] [address] PCP - General INTERNAL MEDICINE 09/22/21 12/29/23 documented as of this encounter
--- OUTSIDE RECORDS SUMMARY | 2024-09-30 01:35 | XMS_ITS | Encounter Summary ---
Author Organization [facility] Address [address] [place] [address]. [place], [place] [address] [place] [address] Care Team Providers Care Direct Care Worker Name Role Phone France Quinonez MD Primary Care Provider [phone] Reason for Visit * Reason Onset Date Comments Medication 09/22/2021 Encounter Details Date Type Department Care Team (Late st Contact Info) Description 09/22/2021 Telephone [facility] Medical Group Multispecialty Care - [place] [address] [address] [address] [place] [address] France Quinonez MD [address] [place] [address] [address] [place] [address] Medication Social History Tobacco Use Types Packs/Day Years [...] on file Legal Sex Male 8:49 AM COMPUTER SCIENCE INSTRUCTOR Gender Identity Not on file Sexual Orientation Not on file COVID-19 Exposure Response Date Recorded In the last month, have you been in contact with someone who was confirmed or suspected to have Coronavirus / COVID-19? No / Unsure 09/22/2021 8:42 AM COMPUTER SCIENCE INSTRUCTOR documented as of this encounter Progress Notes * France Quinonez MD - 09/22/2021 4:56 PM CST Vit D script sent. UTER SCIENCE INSTRUCTOR documented in this encounter Plan of Treatment Not on file documented as of this encounter Visit Diagnoses Diagnosis Vitamin D deficiency- Primary Unspecified vitamin D deficiency documented in this encounter Additional Health Concerns Assessment Noted Time PHQ-9 Depression Total Score: 7 09/22/20 9:37 AM COMPUTER SCIENCE INSTRUCTOR documented as of this encounter Care Teams Direct Care Worker Relationship Specialty Start Date End Date France Quinonez MD [address] [address] PCP - General INTERNAL MEDICINE 09/22/21 12/29/23 documented as of this encounter
--- OUTSIDE RECORDS SUMMARY | 2024-09-30 01:35 | XMS_ITS | Encounter Summary ---
Author Organization [facility] Address [address] [place] [address]. 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 TURBINE MECHANIC documented in this encounter Plan of Treatment Not on file documented as of this encounter Visit Diagnoses Not on filedocumented in this encounter Additional Health Concerns Assessment Noted Time PHQ-9 Depression Total Score: 7 09/22/20 9:37 AM WIND TURBINE MECHANIC documented as of this encounter Care Teams Golf Club Maker Relationship Specialty Start Date End Date France Quinonez MD [address] [id number] PCP - General INTERNAL MEDICINE 09/22/21 12/29/23 documented as of this encounter
--- OUTSIDE RECORDS SUMMARY | 2024-09-30 01:35 | XMS_ITS | Encounter Summary ---
Author Organization [facility] Address [address] [place] [address]. [place], [place] [address] [place] [address] Care Team Providers Care Anesthesiologist Assistant Name Role Phone France Quinonez MD Primary Care Provider [phone] Reason for Visit * Reason Onset Date Comments Results 09/22/2021 Encounter Details Date Type Department Care Team (Late st Contact Info) Description 09/22/2021 Telephone [facility] Medical Group Multispecialty Care - [place] [address] [address] [address] [place] [address] France Quinonez MD [address] [place] [address] [address] [place] [address] Results Social History Tobacco Use Types Packs/Day Years [...] on file 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 No / Unsure 09/22/2021 8:42 AM TEA TASTER documented as of this encounter Progress Notes * France Quinonez MD - 09/22/2021 1:50 PM CST I received patient Xray left shoulder which showed no acute fracture and or dislocation. Done on 08/26/2021. Scanned. France Quinonez MD Internal Medicine [facility] Medical Group, [facility]. TASTER documented in this encounter Plan of Treatment Not on file documented as of this encounter Visit Diagnoses Not on filedocumented in this encounter Additional Health Concerns Assessment Noted Time PHQ-9 Depression Total Score: 7 09/22/20 9:37 AM TEA TASTER documented as of this encounter Care Teams Anesthesiologist Assistant Relationship Specialty Start Date End Date France Quinonez MD 1188 [facility] [address] [place] [address] PCP - General INTERNAL MEDICINE 09/22/21 12/29/23 documented as of this encounter
--- OUTSIDE RECORDS SUMMARY | 2024-09-30 03:21 | XMS_ITS | Encounter Summary ---
Author Organization [facility] Address [address] [place] [address]. 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 Called the number below to find out what information they are needing as this patient was released. Spoke with sales representative printing. They received forms faxed following last OV 01/21/24. They are needing office note from that visit. Pt signed HIPAA release for records permitting us to send. Office note printed/faxed * Teresa Logan - 01/25/2024 8:51 AM CDT Erika from [employer] called and is needing information about the reasonin this patient cannot return to work. Please return her call at [phone]. documented in this encounter Plan of Treatment Not on file documented as of this encounter Visit Diagnoses Not on filedocumented in this encounter Additional Health Concerns Assessment Noted Time PHQ-9 Depression Total Score: 6 12/30/19 24 8:07 AM CDT documented as of this encounter Care Teams Warble Saw Operator Relationship Specialty Start Date End Date Andra Luna APNP [address] [place] [address] PCP - General NURSE PRACTITIONER 12/30/23 documented as of this encounter
--- OUTSIDE RECORDS SUMMARY | 2024-09-30 03:21 | XMS_ITS | Encounter Summary ---
Author Organization [facility] Address [address] [place] [address]. 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
--- OUTSIDE RECORDS SUMMARY | 2024-09-30 03:21 | XMS_ITS | Encounter Summary ---
Author Organization [facility] Address [address] [place] [address]. 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
--- OUTSIDE RECORDS SUMMARY | 2024-09-30 03:21 | XMS_ITS | Encounter Summary ---
Author Organization [facility] Address [address] [place] [address]. [place], [place] [address] [place] [address] Care Team Providers Care Supervisor Travel Trailer Name Role Phone Andra Luna Primary Care Provider [phone] Reason for Visit * Reason Comments Attention Deficit Hyperactivity Disorder Pt wants to be evaluated for ADHD Encounter Details Date Type Department Care Team (Latest Contact Info) Description 04/25/2024 2:00 PM CDT Office Visit [facility] Medical Group Family & Internal Medicine [address] [phone] Andra Luna APNP [facility] [place] [address] Attention Deficit Hyperactivity Disorder (Pt [...] on file 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 [facility] FAMILY AND INTERNAL MEDICINE OFFICE [...] documented as of this encounter Care Teams Supervisor Travel Trailer Relationship Specialty Start Date End Date Andra Luna APNP [address] [place] [address] PCP - General NURSE PRACTITIONER 12/30/23 documented as of this encounter
--- OUTSIDE RECORDS SUMMARY | 2024-09-30 03:21 | XMS_ITS | Clinical Summary ---
Author Organization [facility] Address [address] [place] [address]. 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 DOES NOT EXCLUDE THE POSSIBILITY OF EXPOSURE TO HCV. 09/22/2021 9:36 AM PRODUCT TRAINER France Quinonez MD LABORATORY Final Result Performing Organization Address City/State/[facility] Co de Phone Number [facility] [address] [place] [address], [id number] from Last 3 Months or Most Recently Relevant to Health Maintenance Insurance [facility] Care Teams Planer Setup Operator Relationship Specialty Start Date End Date Andra Luna APNP [address] [place] [address] PCP - General NURSE PRACTITIONER 12/30/23
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
--- OUTSIDE RECORDS SUMMARY | 2024-09-30 03:22 | XMS_ITS | Encounter Summary ---
Author Organization [facility] Address [address] [place] [address]. [place], [place] [address] [place] [address] Care Team Providers Care Mission Support Specialist Name Role Phone Andra Luna Primary Care Provider [phone] Reason for Visit * Reason Onset Date Comments Other 01/20/2024 Pt Encounter Details Date Type Department Care Team (Late st Contact Info) Description 01/20/2024 Telephone [facility] Medical Group Family & Internal Medicine [facility] [address] [place] [address] Andra Luna APNP [facility] [place] [address] Other (Pt) Social History Tobacco [...] on file 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
--- OUTSIDE RECORDS SUMMARY | 2024-09-30 03:23 | XMS_ITS | Encounter Summary ---
Author Organization [facility] Address [address] [place] [address]. 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
--- OUTSIDE RECORDS SUMMARY | 2024-09-30 03:23 | XMS_ITS | Encounter Summary ---
Author Organization [facility] Address [address] [place] [address]. [place], [place] [address] [place] [address] Care Team Providers Care Program Clinician Name Role Phone Andra Luna Primary Care Provider [phone] Reason for Referral * Physical Medicine (Routine) - Authorized Specialty Diagnoses / Procedures Referred By Contac t Referred To Contact PHYSICAL THERAPY / [facility] Physical Therapy Diagnoses Acute midline low back pain without sciatica Procedures OFFICE/OUTPATIENT NEW LOW MDM 30-44 MINUTES OFFICE/OUTPT VISIT,NEW,LEVL IV OFFICE/OUTPT VISIT,NEW,LEVL V OFFICE/OUTPT VISIT,EST,LEVL III OFFICE/OUTPT VISIT,EST,LEVL IV OFFICE/OUTPT VISIT,EST,LEVL V Andra Luna APNP [address] [place] [address] Phone: tel: fax: [facility] [address] [place] [address] Phone: tel: fax: Referral ID Status Reason Start Date Expiration Date Visits Requested Visits Authorized [id number] Authorized Physical Therapy 01/13/2024 02/11/2025 1 1 Reason for Visit * Reason Comments Headache Encounter Details Date Type Department Care Team (Late st Contact Info) Description 01/13/2024 10:40 AM CDT Office Visit [facility] Medical Group Family & Internal Medicine - [address] [address] Andra Luna APNP [address] [place] [address] Headache Social History Tobacco Use Types Packs/Day [...] on file 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 [facility] FAMILY AND INTERNAL MEDICINE OFFICE VISIT Reason [...] documented as of this encounter Care Teams Program Clinician Relationship Specialty Start Date End Date Andra Luna APNP [address] [place] [address] PCP - General NURSE PRACTITIONER 12/30/23 documented as of this encounter
--- OUTSIDE RECORDS SUMMARY | 2024-09-30 03:23 | XMS_ITS | Encounter Summary ---
Author Organization [facility] Address [address] [place] [address]. 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
--- OUTSIDE RECORDS SUMMARY | 2024-09-30 03:23 | XMS_ITS | Encounter Summary ---
Author Organization [facility] Address [address] [place] [address]. 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
--- OUTSIDE RECORDS SUMMARY | 2024-09-30 03:23 | XMS_ITS | Encounter Summary ---
Author Organization [facility] Address [address] [place] [address]. 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 Gender Identity Not on file Sexual Orientation Not on file documented as of this encounter Plan of Treatment Not on file documented as of this encounter Visit Diagnoses Not on filedocumented in this encounter Additional Health Concerns Assessment Noted Time PHQ-9 Depression Total Score: 7 09/22/20 9:37 AM AIRLINE COUNTER AGENT documented as of this encounter Care Teams Laborer Electroplating Relationship Specialty Start Date End Date France Quinonez MD [address] [address] PCP - General INTERNAL MEDICINE 09/22/21 12/29/23 Andra Luna APNP [address] [place] [address] PCP - General NURSE PRACTITIONER 12/30/23 documented as of this encounter
--- OUTSIDE RECORDS SUMMARY | 2024-09-30 03:23 | XMS_ITS | Encounter Summary ---
Author Organization [facility] Address [address] [place] [address]. 

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
--- OUTSIDE RECORDS SUMMARY | 2024-09-30 03:23 | XMS_ITS | Encounter Summary ---
Author Organization [facility] Address [address] [place] [address]. [place], [place] [address] [place] [address] Care Team Providers Care Deskidding Machine Operator Name Role Phone Andra Luna Primary Care Provider [phone] Reason for Visit * Reason Onset Date Comments Information 01/17/2024 FMLA Encounter Details Date Type Department Care Team (Late st Contact Info) Description 01/17/2024 Telephone [facility] Family & Internal Medicine [facility] [address] [place] [phone] Andra Luna APNP [address] [place] [address] Information (FMLA) Social History Tobacco [...] on file 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
--- OUTSIDE RECORDS SUMMARY | 2024-09-30 03:23 | XMS_ITS | Encounter Summary ---
Author Organization [facility] Address [address] [place] [address]. [address] [address] Care Team Providers Care Kindergarten Paraprofessional Name Role Phone Andra Luna Primary Care Provider [phone] Encounter Details Date Type Department Care Team (Latest Contact Info) Description 01/11/2024 Travel Social History Tobacco Use Types Packs/Day Years Used Date Smoking Tobacco: Never Smokeless Tobacco: Never Comments:counseled by Dr lEise khan Alcohol Use Standard Drinks/Week Comments Yes 0 (1 standard drink = 0.6 oz pur e alcohol) occ beer PHQ-2 Answer Date Recorded Patient Health Questionnaire-2 Score 0 12/30/2023 Sex and Gender Information Value Date Recorded Sex Assigned at Not on file Legal Sex Male 8:49 AM CERTIFIED [employer] Gender Identity Not on file Sexual Orientation Not on file documented as of this encounter Plan of Treatment Not on file documented as of this encounter Visit Diagnoses Not on filedocumented in this encounter Additional Health Concerns Assessment Noted Time PHQ-9 Depression Total Score: 6 12/30/19 8:07 AM CDT documented as of this encounter Care Teams Kindergarten Paraprofessional Relationship Specialty Start Date End Date Andra Luna APNP [address] [place] [address] PCP - General NURSE PRACTITIONER 12/30/23 documented as of this encounter
--- OUTSIDE RECORDS SUMMARY | 2024-09-30 03:25 | XMS_ITS | Encounter Summary ---
Author Organization [facility] Address [address] [place] [address]. 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
--- OUTSIDE RECORDS SUMMARY | 2024-09-30 03:25 | XMS_ITS | Encounter Summary ---
Author Organization [facility] Address [facility]. [place], [place] [address] [place] [address] Care Team Providers Care Insecticide Supervisor Name Role Phone France Quinonez MD Primary Care Provider [phone] Reason for Referral * Consultation/Treatment (Routine) - Closed Specialty Diagnoses / Procedures Referred By Contac t Referred To Contact SPORTS MEDICINE / ORTHOPAEDICS Diagnoses Chronic left shoulder pain Procedures OFFICE/OUTPT VISIT,NEW,LEVL III OFFICE/OUTPT VISIT,NEW,LEVL IV OFFICE/OUTPT VISIT,NEW,LEVL V OFFICE/OUTPT VISIT,EST,LEVL III OFFICE/OUTPT VISIT,EST,LEVL IV OFFICE/OUTPT VISIT,EST,LEVL V France Quinonez MD [address] [facility] [address] [place] [address] Phone: tel: fax: Juan C Bee MD [address] [place] [address] Phone: tel: fax: Referral ID Status Reason Start Date Expiration Date V isits Requested Visits Authorized [id number] Closed Specialty Services 07/13/2022 08/13/2023 100 100 [...] Description 07/13/2022 12:40 PM CDT Office Visit [facility] Multispecialty Care - [place] [address] [address] [place] [address] France Quinonez MD [address] [facility] [address] [place] [address] Shoulder Pain (Patient states the left shoulder [...] file 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 Insurance authorization Our internal controls specialist will contact your insurance company to get prior authorization if needed. Appointment If you have been referred to an [facility] hospital or [facility] Medical Group provider, the hospital or clinic you have been referred to will call you to schedule your appointment. For those outside services of [facility], our referral expects will be in contact by phone or mail regarding your recently placed referral. If you have not heard anything from your referral in about 1 week, please call [phone]. Working with insurance companies can be cumbersome, but we are dedicated to processing your referral timely and efficiently. Please know you have a caring and competent team working on your behalf [facility] continuum of care as quickly as possible. documented in this encounter Progress Notes * rFance Quinonez MD - 07/13/2022 12:40 PM CDTSummary: [...] 30 tablet 0 ??? vitamin D2, ergocalciferol, 39[address] UNITS capsule Take 1 capsule (50,000 Units [...] PAIN OF LEFT UPPER LIMB Ambulatory Referral [facility] G89.29 338.29 meloxicam (MOBIC) 15 MG tablet tiZANidine (ZANAFLEX) 4 MG tablet 2. Need for ktrzdsqfzc-mrdrejn-xzdhggusv (Tdap) vaccine Z23 V06.1 REQUIRES DIPHTHERIA, TETANUS AND PERTUSSIS VACCINATION [88660] Adacel (Tdap) 3. Vitamin D deficiency E55.9 [...] improving though not completely. 2. Need for rjwmckzdhk-safuurb-krqgofmpx (Tdap) vaccine - [43533] Adacel (Tdap) 3. Vitamin D deficiency - [...] was at least in part performed using [employer] and there may be some inherent flaws in this repairer kiln car due to the nature of this program. France Quinonez MD Internal Medicine [facility], [facility]. documented in this encounter Plan of Treatment Scheduled Referrals Name Type Priority Associated Diagnoses Orde r Schedule Ambulatory Referral to Sports Medicine Referral Routine Chronic left shoulder pain Ordered: 07/13/2022 documented as of this encounter Visit Diagnoses Diagnosis Chronic left shoulder pain- Primary Pain in joint, shoulder region Need for cwqrgxzoom-rhdhkdm-khqjefzwv (Tdap) vaccine Need for prophylactic vaccination with combined rccpgetpsg-qywlkhx-oyhdjrswu (DTP) vaccine Vitamin D deficiency Unspecified vitamin D deficiency Dermatitis Contact dermatitis and other eczema, due to unspecified cause documented in this encounter Additional Health Concerns Assessment Noted Time PHQ-9 Depression Total Score: 7 09/22/20 21 9:37 AM MANAGER STAFFING documented as of this encounter Care Teams Insecticide Supervisor Relationship Specialty Start Date End Date France Quinonez MD [address] [facility] [address] [place] [address] PCP - General INTERNAL MEDICINE 09/22/21 12/29/23 documented as of this encounter
--- OUTSIDE RECORDS SUMMARY | 2024-09-30 03:26 | XMS_ITS | Encounter Summary ---
Author Organization [facility] Address [address] [place] [address]. [place], [place] [address] [place] [address] Care Team Providers Care Jail Manager Name Role Phone France Quinonez MD Primary Care Provider [phone] Reason for Visit * Reason Onset Date Comments No Show 06/22/2022 Encounter Details Date Type Department Care Team (Late st Contact Info) Description 06/22/2022 Telephone [facility] Physical Therapy 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
--- OUTSIDE RECORDS SUMMARY | 2024-09-30 03:26 | XMS_ITS | Encounter Summary ---
Author Organization [facility] Address [address] [place] [address]. 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
--- OUTSIDE RECORDS SUMMARY | 2024-09-30 03:26 | XMS_ITS | Encounter Summary ---
Author Organization [facility] Address [address] [place] [address]. [place], [place] [address] [place] [address] Care Team Providers Care Can Carrier Name Role Phone France Quinonez MD Primary Care Provider [phone] Reason for Visit * Reason Comments Shoulder Pain * Physical Medicine (Routine) - Closed Specialty Diagnoses / Procedures Referred By Contac t Referred To Contact PHYSICAL THERAPY / [facility] Physical Therapy Diagnoses Chronic left shoulder pain France Quinonez MD [address] [place] [address] Phone: tel: fax: [facility] Physical Therapy [address] [place] [address] Phone: tel: fax: Referral ID Status Reason Start Date Expiration Date V isits Requested Visits Authorized [id number] Closed Physical Therapy 05/05/2022 06/04/2023 10 10 Encounter Details Date Type Department Care Team (Late st Contact Info) Description 06/01/2022 1:30 PM CDT Office Visit [facility] Physical Therapy [address] [place] [address] France Quinonez MD [address] [place] [address] Augustina Osorio PT Shoulder Pain Social [...] on file 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 Gender Identity Not on file Sexual Orientation [...] Compensation Injury: No 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 Subjective Note: Pt reports [...] abduction 160 with pain Neuromuscular Re-education - 77811 Number of Minutes - 81635: 8 Intervention: kinesiotape: I-strip to unweight L UE, I-strip to pull shoulder posteriorly Other (Comments): See education below Therapeutic Exercise - 10587 Number of Minutes - 62621: 25 Exercise: PROM L shoulder with gentle [...] Total Score: 7 09/22/20 21 9:37 AM ENVIRONMENTAL TECHNOLOGY PROFESSOR documented as of this encounter Care Teams Can Carrier Relationship Specialty Start Date End Date France Quinonez MD [address] [address] PCP - General INTERNAL MEDICINE 09/22/21 12/29/23 documented as of this encounter
--- OUTSIDE RECORDS SUMMARY | 2024-09-30 03:26 | XMS_ITS | Encounter Summary ---
Author Organization [facility] Address [address] [place] [address]. 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
--- OUTSIDE RECORDS SUMMARY | 2024-09-30 03:26 | XMS_ITS | Encounter Summary ---
Author Organization [facility] Address [address] [place] [address]. [place], [place] [address] [place] [address] Care Team Providers Care Miter Operator Name Role Phone France Quinonez MD Primary Care Provider [phone] Reason for Visit * Reason Comments Shoulder Pain * Physical Medicine (Routine) - Closed Specialty Diagnoses / Procedures Referred By Contac t Referred To Contact PHYSICAL THERAPY / [facility] Physical Therapy Diagnoses Chronic left shoulder pain France Quinonez MD [address] [place] [address] Phone: tel: fax: [facility] Physical Therapy [address] [place] [address] Phone: tel: fax: Referral ID Status Reason Start Date Expiration Date V isits Requested Visits Authorized [id number] Closed Physical Therapy 05/05/2022 06/04/2023 10 10 Encounter Details Date Type Department Care Team (Late st Contact Info) Description 06/08/2022 12:00 PM CDT Office Visit [facility] Physical Therapy [address] [place] [address] France Quinonez MD [address] [place] [address] Augustina Osorio PT Shoulder Pain Social [...] on file 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 Gender Identity Not on file Sexual Orientation [...] Compensation Injury: No Work 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 [employer] 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 Duties: 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
--- OUTSIDE RECORDS SUMMARY | 2024-09-30 03:27 | XMS_ITS | Encounter Summary ---
Author Organization [facility] Address [address] [place] [address]. [place], [place] [address] [place] [address] Care Team Providers Care Death Clearance Coordinator Name Role Phone France Quinonez MD Primary Care Provider [phone] Reason for Referral * Imaging (Routine) - Closed Specialty Diagnoses / Procedures Referred By Ryan mckeon Referred To Contact RADIOLOGY Diagnoses Chronic left shoulder pain Procedures MRI SHOULDER LT WO CON France Quinonez MD [address] [address] Phone: tel: fax: Referral ID Status Reason Start Date Expiration Date Visits Re quested Visits Authorized [id number] Closed 05/22/2022 11/18/2022 1 1 Reason for Visit * Imaging (Routine) - Closed Specialty Diagnoses / Procedures Referred By Ryan mckeon Referred To Contact RADIOLOGY Diagnoses Chronic left shoulder pain Procedures MRI SHOULDER LT WO CON France Quinonez MD [address] [address] Phone: tel: fax: Referral ID Status Reason Start Date Expiration Date Visits Re quested Visits Authorized [id number] Closed 05/22/2022 11/18/2022 1 1 Encounter Details Date Type Department Care Team (Latest Contact Info) Description 06/01/2022 11:07 AM CDT - 06/01/2022 11:59 PM CDT Hospital Encounter [facility] [place] [address] France Quinonez MD [address] [facility] [address] [place], [place] [address] Discharge Disposition: Home or Self Care (Routine [...] on file Legal 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 20 capsule 09/22/2021 2 vitamin D2, ergocalciferol, 56782 UNITS capsuleIndication s:Vitamin D deficiency Take 1 [...] and narrowing and moderate bursitis. Referred By: FRANEC QUINONEZ Interpreted By: Regino Monge MD, 06/01/2022 [...] Depression Total Score: 7 09/22/20 9:37 AM UNDERWATER TRAPPER documented as of this encounter Care Teams Death Clearance Coordinator Relationship Specialty Start Date End Date France Quinonez MD [address] [address] PCP - General INTERNAL MEDICINE 09/22/21 12/29/23 documented as of this encounter
--- OUTSIDE RECORDS SUMMARY | 2024-09-30 03:27 | XMS_ITS | Encounter Summary ---
Author Organization [facility] Address [address] [place] [address]. [place], [place] [address] [place] [address] Care Team Providers Care Medical Screener Name Role Phone France Quinonez MD Primary Care Provider [phone] Reason for Visit * Reason Comments Shoulder Pain * Physical Medicine (Routine) - Closed Specialty Diagnoses / Procedures Referred By Contac t Referred To Contact PHYSICAL THERAPY / [facility] Physical Therapy Diagnoses Chronic left shoulder pain France Quinonez MD [address] [place] [address] Phone: tel: fax: [facility] Physical Therapy [address] [place] [address] Phone: tel: fax: Referral ID Status Reason Start Date Expiration Date V isits Requested Visits Authorized [id number] Closed Physical Therapy 05/05/2022 06/04/2023 10 10 Encounter Details Date Type Department Care Team (Late st Contact Info) Description 05/25/2022 2:30 PM CDT Office Visit [facility] Physical Therapy [address] [place] [address] France Quinonez MD [address] [place] [address] Augustina Osorio PT Shoulder Pain Social [...] on file 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 Gender Identity Not on file [...] Compensation Injury: No 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 Subjective Note: Pt reports [...] to T2, IR to T7 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, L 55 lbs Neuromuscular Re-education - 67393 Number of Minutes - 59023: 8 Postural Instruction: correct sitting posture Intervention: kinesiotape: I-strip to unweight L UE, I-strip to pull shoulder posteriorly Therapeutic Exercise - 78518 Number of Minutes - 24333: 22 Exercise: PROM L shoulder with gentle [...] Depression Total Score: 7 09/22/20 9:37 AM BANDING MACHINE OPERATOR documented as of this encounter Care Teams Medical Screener Relationship Specialty Start Date End Date France Quinonez MD [address] [address] PCP - General INTERNAL MEDICINE 09/22/21 12/29/23 documented as of this encounter
--- OUTSIDE RECORDS SUMMARY | 2024-09-30 03:27 | XMS_ITS | Encounter Summary ---
Author Organization [facility] Address [address] [place] [address]. [place], [place] [address] [place] [address] Care Team Providers Care Endless Track Vehicle Supervisor Name Role Phone France Quinonez MD Primary Care Provider [phone] Encounter Details Date Type Department Care Team [...] on file Legal Sex Male 8:49 AM EDGE BANDING OFF BEARER Gender Identity Not on file Sexual Orientation [...] Total Score: 7 09/22/20 21 9:37 AM EDGE BANDING OFF BEARER documented as of this encounter Care Teams Endless Track Vehicle Supervisor Relationship Specialty Start Date End Date France Quinonez MD 1188 [facility] [address] [place] [address] PCP - General INTERNAL MEDICINE 09/22/21 12/29/23 documented as of this encounter
--- OUTSIDE RECORDS SUMMARY | 2024-09-30 03:27 | XMS_ITS | Encounter Summary ---
Author Organization [facility] Address [address] [place] [address]. 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
--- OUTSIDE RECORDS SUMMARY | 2024-09-30 03:27 | XMS_ITS | Encounter Summary ---
Author Organization [facility] Address [address] [place] [address]. 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
--- OUTSIDE RECORDS SUMMARY | 2024-09-30 03:27 | XMS_ITS | Encounter Summary ---
Author Organization [facility] Address [address] [place] [address]. [place], [place] [address] [place] [address] Care Team Providers Care Pole Framer Name Role Phone France Quinonez MD Primary Care Provider [phone] Reason for Visit * Reason Comments Shoulder Pain * Physical Medicine (Routine) - Closed Specialty Diagnoses / Procedures Referred By Contac t Referred To Contact PHYSICAL THERAPY / [facility] Physical Therapy Diagnoses Chronic left shoulder pain France Quinonez MD [address] [place] [address] Phone: tel: fax: [facility] Physical Therapy [address] [place] [address] Phone: tel: fax: Referral ID Status Reason Start Date Expiration Date V isits Requested Visits Authorized [id number] Closed Physical Therapy 05/05/2022 06/04/2023 10 10 Encounter Details Date Type Department Care Team (Late st Contact Info) Description 05/18/2022 1:30 PM CDT Office Visit [facility] Physical Therapy [address] [place] [address] France Quinonez MD [address] [place] [address] Alberto Osorio PT Shoulder Pain Social [...] on file Legal Sex Male 8: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 Pt [...] Total Score: 7 09/22/20 21 9:37 AM MEDICAL TECHNOLOGIST CHIEF documented as of this encounter Care Teams Pole Framer Relationship Specialty Start Date End Date France Quinonez MD [address] [address] PCP - General INTERNAL MEDICINE 09/22/21 12/29/23 documented as of this encounter
--- OUTSIDE RECORDS SUMMARY | 2024-09-30 03:29 | XMS_ITS | Encounter Summary ---
Author Organization [facility] Address [address] [place] [address]. [place], [place] [address] [place] [address] Care Team Providers Care Hvac Installer Name Role Phone France Quinonez MD Primary Care Provider [phone] Reason for Visit * Reason Onset Date Comments Results 09/22/2021 Encounter Details Date Type Department Care Team (Late st Contact Info) Description 09/22/2021 Telephone [facility] Medical Group Multispecialty Care - [place] [address] [address] [place] [address] France Quinonez MD [address] [place] [address] 157 [place] [address] Results Social History Tobacco Use [...] on file Legal Sex Male 8:49 AM 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 No / Unsure 09/22/2021 8:42 AM RESPIRATORY SUPERVISOR documented as of this encounter Progress Notes * France Quinonez MD - 09/22/2021 1:50 PM CST I received patient Xray left shoulder which showed no acute fracture and or dislocation. Done on 08/26/2021. Scanned. France Quinonez MD Internal Medicine [facility] Medical Group, [facility]. IRATORY SUPERVISOR documented in this encounter Plan of Treatment Not on file documented as of this encounter Visit Diagnoses Not on filedocumented in this encounter Additional Health Concerns Assessment Noted Time PHQ-9 Depression Total Score: 7 09/22/20 9:37 AM RESPIRATORY SUPERVISOR documented as of this encounter Care Teams Hvac Installer Relationship Specialty Start Date End Date France Quinonez MD 1188 [facility] [address] [place] [address] PCP - General INTERNAL MEDICINE 09/22/21 12/29/23 documented as of this encounter
--- OUTSIDE RECORDS SUMMARY | 2024-09-30 03:29 | XMS_ITS | Encounter Summary ---
Author Organization [facility] Address [address] [place] [address]. [place], [place] [address] [place] [address] Care Team Providers Care Food Counter Worker Name Role Phone France Quinonez MD Primary Care Provider [phone] Encounter Details Date Type Department Care Team (Latest Contact Info) Description 09/22/2021 - 09/22/2021 11:59 PM ARMY HELICOPTER PILOT Hospital Encounter [facility] [address] [place] [address] France Quinonez MD [address] [address] Discharge Disposition: Home or Self [...] on file Legal Sex Male 8:49 AM ARMY HELICOPTER PILOT Gender Identity Not on file Sexual Orientation Not on file COVID-19 Exposure Response Date Recorded In the last month, have you been in contact with someone who was confirmed or suspected to have Coronavirus / COVID-19? No / Unsure 09/22/2021 8:42 AM ARMY HELICOPTER PILOT documented as of this encounter Medications at [...] 20 capsule 09/22/2021 09/07/2022 vitamin D2, ergocalciferol, 91918 UNITS capsuleIndication s:Vitamin D deficiency Take 1 capsule (50,000 Units total) by mouth weekly. 12 capsule 09/22/2021 09/07/2022 documented as of this encounter Plan of Treatment Not on file documented as of this encounter Visit Diagnoses Not on filedocumented in this encounter Additional Health Concerns Assessment Noted Time PHQ-9 Depression Total Score: 7 09/22/20 9:37 AM ARMY HELICOPTER PILOT documented as of this encounter Care Teams Food Counter Worker Relationship Specialty Start Date End Date France Quinonez MD [address] [address] PCP - General INTERNAL MEDICINE 09/22/21 12/29/23 documented as of this encounter
--- OUTSIDE RECORDS SUMMARY | 2024-09-30 03:29 | XMS_ITS | Encounter Summary ---
Author Organization [facility] Address [address] [place] [address]. [place], [place] [address] [place] [address] Care Team Providers Care Parakeet Raiser Name Role Phone France Quinonez MD Primary Care Provider [phone] Encounter Details Date Type Department Care Team [...] on file Legal Sex Male 8:49 AM FILBERT GROWER Gender Identity Not on file Sexual Orientation Not on file COVID-19 Exposure Response Date Recorded In the last month, have you been in contact with someone who was confirmed or suspected to have Coronavirus / COVID-19? No / Unsure 09/22/2021 8:42 AM FILBERT GROWER documented as of this encounter Plan of Treatment Not on file documented as of this encounter Visit Diagnoses Not on filedocumented in this encounter Additional Health Concerns Assessment Noted Time PHQ-9 Depression Total Score: 7 09/22/20 9:37 AM FILBERT GROWER documented as of this encounter Care Teams Parakeet Raiser Relationship Specialty Start Date End Date France Quinonez MD [address] [address] PCP - General INTERNAL MEDICINE 12/13/21 3/20/24 documented as of this encounter
--- OUTSIDE RECORDS SUMMARY | 2024-09-30 03:29 | XMS_ITS | Encounter Summary ---
Author Organization [facility] Address [address] [place] [address]. [place], [place] [address] [place] [address] Care Team Providers Care Commissioner Of Conciliation Name Role Phone France Quinonez MD Primary Care Provider [phone] Reason for Visit * Reason Onset Date Comments No Show 10/27/2021 Encounter Details Date Type Department Care Team (Late st Contact Info) Description 10/27/2021 Telephone [facility] Medical Group Multispecialty Care [place] [address] [address] [place] [address] France Quinonez MD [address] [place] [address] 157 [place] [address] No Show Social History Tobacco [...] on file Legal Sex Male 8:49 AM VP Gender Identity Not on file Sexual Orientation Not on file documented as of this encounter Progress Notes * Sergio Kline - 10/27/2021 12:39 PM CST Called patient, left message to reschedule appointment. documented in this encounter Plan of Treatment Not on file documented as of this encounter Visit Diagnoses Not on filedocumented in this encounter Additional Health Concerns Assessment Noted Time PHQ-9 Depression Total Score: 7 09/22/20 9:37 AM VP documented as of this encounter Care Teams Commissioner Of Conciliation Relationship Specialty Start Date End Date France Quinonez MD [address] [id number] PCP - General INTERNAL MEDICINE 09/22/21 12/29/23 documented as of this encounter
--- OUTSIDE RECORDS SUMMARY | 2024-09-30 03:29 | XMS_ITS | Encounter Summary ---
Author Organization [facility] Address [address] [place] [address]. 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 No / Unsure 09/22/2021 8:42 AM CARE PROGRAM DIRECTOR documented as of this encounter Progress Notes * France Quinonez MD - 09/22/2021 4:56 PM CST Vit D script sent. PROGRAM DIRECTOR documented in this encounter Plan of Treatment Not on file documented as of this encounter Visit Diagnoses Diagnosis Vitamin D deficiency- Primary Unspecified vitamin D deficiency documented in this encounter Additional Health Concerns Assessment Noted Time PHQ-9 Depression Total Score: 7 09/22/20 9:37 AM CARE PROGRAM DIRECTOR documented as of this encounter Care Teams Passenger Conductor Relationship Specialty Start Date End Date France Quinonez MD [address] [address] PCP - General INTERNAL MEDICINE 09/22/21 12/29/23 documented as of this encounter
--- OUTSIDE RECORDS SUMMARY | 2024-09-30 03:29 | XMS_ITS | Encounter Summary ---
Author Organization [facility] Address [address] [place] [address]. [place], [place] [address] [place] [id number] Care Team Providers Care Local Delivery Truck Driver Name Role Phone France Quinonez MD Primary Care Provider [phone] Reason for Referral * Physical Medicine (Urgent) - Closed Specialty Diagnoses / Procedures Referred By Contac t Referred To Contact PHYSICAL THERAPY / [facility] Physical Therapy Diagnoses Acute pain of left shoulder France Quinonez MD [address] [place] [address] Phone: tel: fax: [facility] Physical Therapy [address] [place] [address] Phone: tel: fax: Referral ID Status Reason Start Date Expiration Date V isits Requested Visits Authorized [id number] Closed Physical Therapy 09/22/2021 10/22/2022 1 1 ING TECHNICIAN * Imaging (Routine) - Closed Specialty Diagnoses / Procedures Referred By Contac t Referred To Contact RADIOLOGY Diagnoses Acute pain of left shoulder Procedures MRI SHOULDER LT WO CON France Quinonez MD [address] [address] Phone: tel: fax: Referral ID Status Reason Start Date Expiration Date Visits Re quested Visits Authorized [id number] Closed 09/22/2021 10/22/2022 1 1 ING TECHNICIAN Reason for Visit * Reason Comments New Patient establish care, c/o of left shoulder pain that started about a month ago Encounter Details Date Type Department Care Team (Latest Contact Info) Description 09/22/2021 9:00 AM FILLING TECHNICIAN Office Visit [facility] Medical [facility] [place] [address] [place] [address] [address] [place] [address] France Quinonez MD [address] [facility] [address] [place] [address] New Patient (establish care, c/o of left [...] on file Legal Sex Male 8:49 AM FILLING TECHNICIAN Gender Identity Not on file Sexual Orientation Not on file COVID-19 Exposure Response Date Recorded In the last month, have you been in contact with someone who was confirmed or suspected to have Coronavirus / COVID-19? No / Unsure 09/22/2021 8:42 AM FILLING TECHNICIAN documented as of this encounter Last Filed Vital Signs Vital Sign Reading Time Taken Comments Blood Pressure 131/71 09/22/2021 9:00 AM FILLING TECHNICIAN Pulse 82 09/22/2021 9:00 AM FILLING TECHNICIAN Temperature 36.7 ??C (98.1 ??F) 09/22/2021 9:00 AM CS T Respiratory Rate 17 09/22/2021 9:00 AM FILLING TECHNICIAN Oxygen Saturation 98% 09/22/2021 9:00 AM FILLING TECHNICIAN Inhaled Oxygen Concentration - - Weight 106.1 kg (234 lb) 09/22/2021 9:00 AM FILLING TECHNICIAN Height 182.9 cm (6') 09/22/2021 9:00 AM FILLING TECHNICIAN Body Mass Index 31.74 09/22/2021 9:00 AM FILLING TECHNICIAN documented in this encounter Patient Instructions * Patient Instructions* France Quinonez MD - 09/22/2021 9:00 AM FILLING TECHNICIAN Images from the original note were not [...] or blue. Where can I learn more? [employer] http://orthoinfo.aaos.org/PDFs/U33217.pdf Last Reviewed Date 2020-07-05 Consumer Information Use [...] right for you. Copyright Copyright ?? 2020 [employer] and its affiliates and/or licensors. All rights [...] doctor may have you work with a service dog trainer or physical therapist to make a [...] stretch. ?? External rotation door stretches ? de icer installer an open doorway. Bend your elbow to [...] cane over your head. ? Abductions or eeyy-gk-aoab motion ? Stand and grab the cane [...] your left shoulder. ? External rotations or yjnr-gr-hsnk rotations ? Lie down or stand and [...] shoulder stiffness. Where can I learn more? [employer] http://orthoinfo.aaos.org/topic.cfm?cdxng=c14592 NHS Choices http://www.nhs.uk/Conditions/Frozen-shoulder/Pages/Treatment.aspx Last Reviewed Date 2021-04-07 [...] right for you. Copyright Copyright ?? 2020 [employer] and its affiliates and/or licensors. All rights reserved. ING TECHNICIAN ING TECHNICIAN documented in this encounter Progress Notes * [...] prior to the episode. 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 Marital status: single Children: no child yet [...] SHOULDER LT WO CON 10. Need for jpxatemczm-ocfgicx-xpgcnohup (Tdap) vaccine Z23 V06.1 REQUIRES DIPHTHERIA, TETANUS [...] smoking/second hand smoking. Patient will set up [employer] Patient will fax over any remaining outside [...] smoking/second hand smoking. Patient will set up [employer]. Patient will fax over any remaining outside [...] MRI SHOULDER LT WO CON Need for zhbmubynuo-epmioso-bymulhidf (Tdap) vaccine - Cancel: [82924] Adacel (Tdap) Gastroesophageal reflux disease without esophagitis [...] was at least in part performed using [employer] and there may be some inherent flaws in this professor of historical theology due to the nature of this program. MD France AVINA MD Internal Medicine [facility] Medical Group, [facility]. ING TECHNICIAN ING TECHNICIAN documented in this encounter Plan of Treatment [...] Comments TSH W/REFLEX Routine 09/22/2021 9:36 AM FILLING TECHNICIAN Annual physical exam Encounter for medical examination to establish care General medical exam Screening for hypothyroidism HEMOGLOBIN, GLYCOSYLATED Routine 09/22/2021 9:36 AM FILLING TECHNICIAN Annual physical exam Encounter for medical examination to establish care General medical exam Screening for diabetes mellitus COMPREHENSIVE METABOLIC PANEL Routine 09/22/2021 9:36 AM FILLING TECHNICIAN Annual physical exam Encounter for medical examination to establish care General medical exam LIPID PANEL Routine 09/22/2021 9:36 AM FILLING TECHNICIAN Annual physical exam Encounter for medical examination to establish care General medical exam Screening for hyperlipidemia HEPATITIS C ANTIBODY Routine 09/22/2021 9:36 AM FILLING TECHNICIAN Annual physical exam Encounter for medical examination to establish care General medical exam Encounter for hepatitis C screening test for low risk patient CBC W/DIFF AUTOMATED Routine 09/22/2021 9:36 AM FILLING TECHNICIAN Annual physical exam Encounter for medical examination to establish care General medical exam VITAMIN D, 25 OH Routine 09/22/2021 9:36 AM FILLING TECHNICIAN Annual physical exam Encounter for medical examination to establish care General medical exam Encounter for vitamin deficiency screening VENIPUNC ARM DRAW Routine 09/22/2021 9:3 2 AM FILLING TECHNICIAN Annual physical exam Encounter for medical examination [...] VITAMIN D, 25 OH (09/22/2021 9:36 AM FILLING TECHNICIAN) Pathologist [facility] VITAMIN D 25 HYDROXY TOTAL S/P/B 16.9(L) 20 - 50 NG/ML 09/22/2021 4:39 PM FILLING TECHNICIAN [facility] Comment: <10 ng/mL (Severe deficiency) 10 TO 19 ng/mL (Mild to Moderate deficiency) 20 TO 50 ng/mL (Optimum levels) 51 TO 80 ng/mL (Increased risk of hypercalciuria) >80 ng/mL (Toxicity possible) 09/22/2021 9:36 AM FILLING TECHNICIAN France Quinonez MD LABORATORY Final Result [facility] [address] [facility] [address], * HEPATITIS C ANTIBODY (09/22/2021 9:36 AM FILLING TECHNICIAN) HEPATITIS C AB NON-REACTI VE NON-REACT RAOUL 09/22/2021 9:59 PM FILLING TECHNICIAN [facility] Comment: ANTIBODIES TO HCV NOT DETECTED. DOES NOT EXCLUDE THE POSSIBILITY OF EXPOSURE TO HCV. 09/22/2021 9:36 AM FILLING TECHNICIAN France Quinonez MD LABORATORY Final Result [facility] [address] [place] [address], [id number] * (ABNORMAL) HEMOGLOBIN, GLYCOSYLATED (09/22/2021 9:36 AM FILLING TECHNICIAN) Pathologist [facility] HGB A1C 5.4 3.80 - 5.60 % 09/22/2021 5:24 PM FILLING TECHNICIAN [facility] ESTIMATED AVG GLUCOSE 108(H) 74 - 106 MG/DL 09/22/2021 5:24 PM FILLING TECHNICIAN [facility] 09/22/2021 9:36 AM FILLING TECHNICIAN us France Quinonez MD LABORATORY Final Result Performing Organization Address [facility]/ZIP Co de Phone Number [facility] [address] [place] [address], * TSH W/REFLEX (09/22/2021 9:36 AM FILLING TECHNICIAN) Pathologist [facility] TSH 1.985 0.358 - 3.740 uIU/ML 09/22/2021 4:39 PM FILLING TECHNICIAN [facility] 09/22/2021 9:36 AM FILLING TECHNICIAN us France Quinonez MD LABORATORY Final Result [facility] [address] [place] [address], * (ABNORMAL) LIPID PANEL (09/22/2021 9:36 AM FILLING TECHNICIAN) CHOLESTEROL 148 <200 MG/DL 09/22/2021 4:39 PM FILLING TECHNICIAN [facility] TRIGLYCERIDES 160(H) <150 MG/DL 09/22/2021 4:39 PM FILLING TECHNICIAN [facility] HDL 34(L) >40 MG/DL 09/22/2021 4:39 PM FILLING TECHNICIAN [facility] LDL-C 82 <100 MG/DL 09/22/2021 4:39 PM FILLING TECHNICIAN [facility] VLDL CALCULATION 32(H) 5 - 28 MG/DL 09/22/2021 4:[address] [facility] CHOL/HDL RATIO 4.4(H) 0.0 - 4.0 09/22/2021 4:39 PM FILLING TECHNICIAN [facility] LDL/HDL 2.4(H) 0.41 - 2.13 09/22/2021 4:39 PM FILLING TECHNICIAN [facility] NON HDL CHOLESTEROL 114 <140 MG/DL 09/22/2021 4:39 PM FILLING TECHNICIAN [facility] 09/22/2021 9:36 AM FILLING TECHNICIAN France Quinonez MD LABORATORY Final Result Performing Organization Address City/[facility] Co de Phone Number [facility] [address] [place] [address], * (ABNORMAL) COMPREHENSIVE METABOLIC PANEL (09/22/2021 9:36 AM FILLING TECHNICIAN) SODIUM S/P/B 140 136 - 145 MMOL/L 09/22/2021 4:39 PM FILLING TECHNICIAN [facility] POTASSIUM S/P/B 4.2 3.5 - 5.1 MMOL/L 09/22/2021 4:[address] [facility] CHLORIDE S/P/B 103 98 - 107 MMOL/L 09/22/2021 4:[address] [facility] CO2 28.3 21 - 32 MMOL/L 09/22/2021 4:[address] [facility] GLUCOSE 105(H) 70 - 99 MG/DL 09/22/2021 4:[address] [facility] BUN 20 6 - 24 MG/DL 09/22/2021 4:[address] [facility] CREATININE S/P/B 0.95 0.70 - 1.30 MG/DL 09/22/2021 4:[address] [facility] CALCIUM S/P/B 9.0 8.4 - 10.5 MG/DL 09/22/2021 4:[address] [facility] BILIRUBIN TOTAL S/P/B 0.9 0.2 - 1.0 MG/DL 09/22/2021 4:[address] [facility] ALKALINE PHOSPHATASE S/P/B 55 45 - 115 U/L 09/22/2021 4:[address] [facility] AST 27 15 - 37 U/L 09/22/2021 4:[address] [facility] ALT 61 16 - 63 U/L 09/22/2021 4:[address] [facility] TOTAL PROTEIN S/P/B 6.9 6.4 - 8.2 G/DL 09/22/2021 4:[address] [facility] ALBUMIN S/P/B 3.8 3.4 - 5.0 G/DL 09/22/2021 4:[address] [facility] ANION GAP 8.7 5 - 15 MMOL/L 09/22/2021 4:[address] [facility] Comment:REFERENCE RANGE NOT ESTABLISHED OSMOLALITY (CALC) 293 MOSM/KG 09/22/2021 4:39 PM FILLING TECHNICIAN [facility] Comment:REFERENCE RANGE NOT ESTABLISHED EGFR NON-AFR. AMER. >90 >90 ML/MIN/1 .73 M2 09/22/2021 4:39 PM FILLING TECHNICIAN [facility] EGFR AFR. AMER. >90 >90 ML/MIN/1 .73 M2 09/22/2021 4:39 PM FILLING TECHNICIAN [facility] GFR NOTES THE ESTIMATED GFR IS CALCULATED USING THE 2009 CKD-EPI EQUATION. THE FOLLOWING CATEGORIES FOR GRADING RENAL FUNCTION ARE RECOMMENDED BY THE INTERNATIONAL SOCIETY OF NEPHROLOGY (KDIGO 2012 CLINICAL PRACTICE GUIDELINE). 09/22/2021 4:39 PM FILLING TECHNICIAN [facility] Comment: G1,NORMAL OR HIGH: >89 ml/min/1.73 m2 G2,MILDLY DECREASED: 60-89 ml/min/1.73 m2 G3A,MILDLY TO MODERATELY DECREASED: 45-59 ml/min/1.73 m2 G3B,MODERATELY TO SEVERELY DECREASED: 30-44 ml/min/1.73 m2 G4,SEVERELY DECREASED: 15-29 ml/min/1.73 m2 G5,KIDNEY FAILURE: <15 ml/min/1.73 m2 09/22/2021 9:36 AM FILLING TECHNICIAN France Quinonez MD LABORATORY Final Result [facility] [address] [place] [address], * CBC W/DIFF AUTOMATED (09/22/2021 9:36 AM FILLING TECHNICIAN) WBC 5.5 4.0 - 10.8 x10'3/uL 09/22/2021 4:41 PM FILLING TECHNICIAN [facility] RBC 4.88 4.50 - 6.10 x10'6/uL 09/22/2021 4:41 PM FILLING TECHNICIAN [facility] HGB 15.0 13.0 - 18.0 G/DL 09/22/2021 4:[address] [facility] HCT 44.3 37.0 - 52.0 % 09/22/2021 4:[address] [facility] MCV 90.8 78.0 - 100.0 FL 09/22/2021 4:[address] [facility] MCH 30.7 27.0 - 31.0 PG 09/22/2021 4:[address] [facility] MCHC 33.9 33.0 - 36.0 G/DL 09/22/2021 4:[address] [facility] RDW 12.1 11.5 - 14.5 % 09/22/2021 4:[address] [facility] PLT 186 150 - 350 x10'3/uL 09/22/2021 4:[address] [facility] MPV 9.8 7.4 - 10.4 FL 09/22/2021 4:[address] [facility] DIFFERENTIAL TYPE AUTOMATED DIFFERENTIAL 09/22/2021 4:[address] [facility] NEUTROPHILS % 55.2 % 09/22/2021 4:[address] [facility] LYMPHOCYTES % 31.6 % 09/22/2021 4:[address] [facility] MONOCYTES % 9.9 % 09/22/2021 4:[address] [facility] EOSINOPHILS % 2.7 % 09/22/2021 4:[address] [facility] BASOPHILS % 0.4 % 09/22/2021 4:[address] [facility] IMMATURE GRANS % 0.2 % 09/22/2021 4:[address] [facility] ABS. NEUTROPHILS 3.05 1.60 - 8.30 x10'3/uL 09/22/2021 4:[address] [facility] ABS. LYMPHOCYTES 1.75 0.80 - 4.70 x10'3/uL 09/22/2021 4:41 PM FILLING TECHNICIAN [facility] ABS. MONOCYTES 0.55 0.00 - 1.50 x10'3/uL 09/22/2021 4:41 PM FILLING TECHNICIAN [facility] ABS. EOSINOPHILS 0.15 0.00 - 0.40 x10'3/uL 09/22/2021 4:41 PM FILLING TECHNICIAN [facility] ABS. BASOPHILS 0.02 0.00 - 0.20 x10'3/uL 09/22/2021 4:41 PM FILLING TECHNICIAN [facility] ABS. IMMATURE GRANULOCYTES 0.01 0.00 - 0.03 x10'3/uL 09/22/2021 4:41 PM FILLING TECHNICIAN [facility] 09/22/2021 9:36 AM FILLING TECHNICIAN us France Quinonez MD LABORATORY Final Result [facility], [facility] [address] [place] [address], [place] [phone] * ALBUMIN URINE RANDOM (09/22/2021) MICROALBUMIN (U) 10 mg/L [facility] [place] CREATININE RANDOM (U) 50 mg/dL [address], [place] MICROALB/CREAT <30 mg/g MG-[address], [place] URINE SPECIMEN / Unknown 09/22/2021 us France Quinonez MD URINE ORDERABLES Final Result [facility], [place] [address] [place] [address], [place] [phone] * URINALYSIS AUTO DIP (09/22/2021) COLOR (U) YELLOW [address], [place] TRANSPARENCY CLEAR [address], [place] GLUCOSE (U) NEGATIVE NEGATIVE MG/DL [address], [place] BILIRUBIN (U) NEGATIVE NEGATIVE MG-[address], [place] KETONES MG/DL (U) NEGATIVE NEGATIVE MG/DL [address], [place] SPECIFIC GRAVITY (U) 1.020 1.001 - 1.035 [address], [place] BLOOD (U) TRACE (Non Hemolyzed, Intact) NEGATIVE [address], [place] U PH 8.5 5.0 - 9.0 [address], [place] PROTEIN (U) NEGATIVE NEGATIVE mg/dL [address], [place] UROBILINOGEN 0.2 0.2 - 1.0 EU/dL = mg/dL [facility], [place] NITRITES NEGATIVE NEGATIVE MG/DL MG[address], [place] LEUKOCYTES (U) NEGATIVE NEGATIVE MG-[address], [place] URINE SPECIMEN OBTAINED BY CLEAN CATCH PROCEDURE / Unknown 09/22/2021 France Quinonez MD URINE ORDERABLES Final Result [facility], [place] [address] [facility] [address] [place] [address], documented in this encounter Visit Diagnoses Diagnosis [...] Acute pain of left shoulder Need for onirgjrdcv-qoofhtd-lukzeekfv (Tdap) vaccine Need for prophylactic vaccination with combined cdsfkpfhgw-ldaabuh-eselqrubq (DTP) vaccine Gastroesophageal reflux disease without esophagitis Esophageal reflux Autism disorder (HHS/HCC) Autistic disorder, current or active state Attention deficit hyperactivity disorder (ADHD), unspecified ADHD type documented in this encounter Additional Health Concerns Assessment Noted Time PHQ-9 Depression Total Score: 7 09/22/20 21 9:37 AM FILLING TECHNICIAN documented as of this encounter Care Teams Local Delivery Truck Driver Relationship Specialty Start Date End Date France Quinonez MD [address] [place] [address] [address] [place] [address] PCP - General INTERNAL MEDICINE 09/22/21 12/29/23 documented as of this encounter
== END 2024-09-25 01:40 | disposition home or self-care (01) ==
PROVIDERS: Student in an Organized Health Care Education/Training Program; Emergency Provider Registered Nurse
DX: J15.9 Unspecified bacterial pneumonia (principal); M94.0 Chondrocostal junction syndrome [Tietze]; Z20.822 Contact with and (suspected) exposure to COVID-19; F84.0 Autistic disorder; R94.31 Abnormal electrocardiogram [ECG] [EKG]
CPT/HCPCS: 36415; 71046; 71260; 80053; 83690; 84484; 85025; 85610; 85730; 87637; 87651; 93005; 94640; 96361; 96374; 96375; 99284; A9270; J1171; J1885; J7030; Q9967

== ENCOUNTER 2024-10-22 10:22 | Emergency (ER) | payer SELFPAY ==
--- NOTE | ~2024-10-22 | CT_ITS ---
History: Remote history of fall PROCEDURE: CT head without contrast. COMPARISON: 03/11/2022 TECHNIQUE: Axial imaging of the head performed from the skull base to the vertex without IV contrast. Sagittal a nd coronal reformations obtained. DLP: 681 mGy-cm FINDINGS: The ventricles are normal in size, shape and position. There is no mass, mass effect or midline shift. There is no abnormal extra-axial fluid collection or intracranial hemorrhage. Visualized paranasal sinuses are clear. The mastoid air cells are well aerated. No acute displaced fractures within the overlying cranium. Impression: No acute intracranial hemorrhage or suspicious mass effect. Reviewed, dictated and finalized at location A. ON PAPER MACHINE OPERATOR Impression: No acute intracranial hemorrhage or suspicious mass effect.
--- NOTE | ~2024-10-22 | CT_ITS ---
History: Remote history of a fall PROCEDURE: CT cervical spine without intravenous contrast. COMPARISON: None TECHNIQUE: Multiple contiguous axial images of the cervical spine were performed without the administration of i ntravenous contrast. DLP: 467 mGy-cm FINDINGS: Straightening of the normal curvature of the cervical spine is identified, likely muscular in origin. No acute fractures are present. The bilateral lung apices are unremarkable. No soft tissue abnormality is present. The airway is patent Impression: Straightening of the normal curvature of the cervical spine, likely muscular in origin. No acute fracture. Reviewed, dictated and finalized at location A. ER PILER OPERATOR Impression: Straightening of the normal curvature of the cervical spine, likely muscular in origin. No acute fracture.
[2024-10-22 10:24] VITALS: BP 141/109; PULSE 87; RESP 20; TEMP 36.3; O2SAT 100
--- NOTE | 2024-10-22 13:58 | ED_ITS ---
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 Also consciousness. Patient states he does not 3 seconds. He is anticoagulation. He states that he has been experiencing blurred vision denies any diplopia. He has not been able to sleep because of the pain. Took Tylenol and ibuprofen yesterday only josé miguel roximately 6:30 p.m.. He was also taking medications for recent diagnosis pneumonia/. He denies nausea but has been dizzy. 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 HEAD: Patient does have a small palpable hematoma occiput (left). EYES: Non injected, non icteric ENT: Nares clear, no rhinorrhea or epistaxis. NECK: Supple. Mild tenderness to palpation throughout midline however no bony step-offs or deformities. CHEST: Speaking in full sentences. No respiratory distress. HEART: Regular rate and rhythm. . ABDOMEN: Soft, nondistended. EXTREMITIES: No lower extremity edema. Moving all 4 extremities SKIN: Warm, dry, no rash. Skin of the back of patient's head and along neck is cool after having an ice pack in place. Otherwise intact. NEURO: No focal deficits. Alert and oriented x3. Speaks clearly without aphasia or dysarthria. No abnormal movements appreciated PSYCH: Congruent mood and affect. Patient nearly tearful and slightly anxious. Course Vital Signs Vital signs: Vital Signs Temperature 97.3 F L 10/22/24 10:24 Pulse Rate 87 10/22/24 10:24 Respiratory Rate 20 10/22/24 10:24 Blood Pressure 141/109 H 10/22/24 10:24 Pulse Oximetry 100 10/22/24 10:24 Oxygen Delivery Room Air 10/22/24 10:24 Temperature 97.3 F L 10/22/24 10:24 Pulse Rate 87 10/22/24 10:24 Respiratory Rate 20 10/22/24 10:24 Blood Pressure 141/109 H 10/22/24 10:24 Pulse Oximetry 100 10/22/24 10:24 Oxygen Delivery Room Air 10/22/24 10:24 MDM - Fall MDM Narrative Medical decision making narrative: Patient presents with a headache, head pain, and neck pain after falling on the ice yesterday and striking the back of his head. Questionable loss of consciousness. In the emergency department vital signs are notable for hypertension, particularly diastolic blood pressure. While I highly suspect that patient suffered a concussion and generalized musculoskeletal pain, he does have palpable hematoma on his occiput and midline C spine tenderness. Will obtain CT imaging. Visual acuity 20/40 bilaterally. Imaging negative for acute process. Patient received analgesic medication while in the emergency department was prescribed multimodal pain medications. Advised follow-up with a primary care physician. Given contact information/referral information if he needs 1. Given emergency department return precautions. Provided work note. Differential Diagnosis Differential diagnosis: Likely compression fracture, concussion with loss of consciousness, concussion without loss of consciousness and other (Fracture, intracranial hemorrhage; post concussive syndrome/post concussive headache) Imaging Data Radiologist's impression: Impressions Head CT 10/22/24 14:42 Impression: No acute intracranial hemorrhage or suspicious mass effect. Cervical Spine CT 10/22/24 14:43 Impression: Straightening of the normal curvature of the cervical spine, likely muscular in origin. No acute fracture. Discharge Plan Discharge Clinical Impression: Post-concussion headache Fall due to ice or snow Qualifiers: Encounter type: sequela Qualified Code(s): W00.9XXS - Unspecified fall due to ice and snow, sequela Patient Disposition: Home, Self-Care Condition: Stable Instructions: Antibiotic Form, Concussion (ED), Post Concussion Syndrome (ED), Fall Prevention (ED) Additional Instructions: No fracture in the bones of your neck/skull and no bleeding in your brain. You likely have a concussion and are experiencing a post concussive headache. Given the mechanism of injury, your expected to be sore and achy for several days but the combination of medications prescribed can help target pain, inflammation, muscle relaxation, and a topical approach. Acetaminophen/Tylenol (maximum 4000 mg per day) is safe to take with NSAIDs (ibuprofen/Motrin) for pain relief. Follow-up with primary care physician. If you do not have 1 the name of a doctor is listed below. Return to the emergency department with any new or worsening symptoms Patient Language: Cuban Prescriptions: New lidocaine 4 % adhesive patch,medicated 1 patch topical DAILY PRN (Reason: pain) Qty: 5 0RF methocarbamol 750 mg tablet 750 mg PO HS Qty: 7 0RF ibuprofen 600 mg tablet 600 mg PO TID PRN (Reason: pain) Qty: 30 0RF acetaminophen 500 mg capsule 1,000 mg PO Q6H PRN (Reason: pain) Qty: 30 0RF No Action Paxlovid 300 mg (150 mg x 2)-100 mg tablets,dose pack See Rx Instructions .ROUTE .COMPLEX Qty: 30 0RF Rx Instructions: take TWO 150 mg tablets of nirmatrelvir with ONE 100 mg tablet of ritonavir twice daily for 5 days acetaminophen 500 mg capsule 1,000 mg PO Q6H PRN (Reason: pain) Qty: 20 0RF ibuprofen 200 mg capsule 600 mg PO Q8H PRN (Reason: pain) Qty: 20 0RF methocarbamol 750 mg tablet 750 mg PO HS Qty: 7 0RF amoxicillin-pot clavulanate 875-125 mg tablet 1 tablet PO Q12H Qty: 20 0RF doxycycline monohydrate 100 mg capsule 100 mg PO BID Qty: 14 0RF albuterol sulfate 90 mcg/actuation aerosol powdr breath activated 2 inh inhalation Q4-6H PRN (Reason: shortness of breath or wheezing) Qty: 1 0RF benzonatate 100 mg capsule 100 mg PO TID Qty: 12 0RF Follow-up/Referrals: PHYSICIAN,HIDE STRETCHER HAND [Primary Care Provider] - Oswald Hurley MD [Physician] - (family practice/internal medicine) Stand Alone Forms: Work/School Release IP Time of Disposition: 15:18
[2024-10-22] MEDS: HYDROcodone/acetaminophen (*CRX) 5-325 MG TABLET 1 TAB PO (14:41)
[2024-10-22] MEDS: KETOROLAC 30 MG/ML VIAL (*BKC) 15 MG IM (15:33)
[2024-10-22] MEDS: LIDOCAINE 5% PATCH 1 PATCH TRANSDERM (15:33)
== END 2024-10-22 15:38 | disposition home or self-care (01) ==
PROVIDERS: Emergency Provider Student in an Organized Health Care Education/Training Program
DX: S06.0XAA Concussion with loss of consciousness status unknown, initial encounter (principal); W00.0XXA Fall on same level due to ice and snow, initial encounter
CPT/HCPCS: 70450; 72125; 96372; 99284; A9270; J1885

== ENCOUNTER 2025-07-26 21:44 | Emergency (ER) | payer OTHER, SELFPAY ==
--- NOTE | ~2025-07-26 | XR_ITS ---
XR shoulder LT min 2V HISTORY: pain/concern for dislocation . COMPARISON: None. FINDINGS: 2 views of the left shoulder demonstrate no acute fracture or dislocation. Acromioclavicular joint and glenohumeral joint are unremarkable. IMPRESSION: Radiographic examination of the left shoulder demonstrates no acute fracture or dislocation. Reviewed, dictated and finalized at location S.
[2025-07-26 21:47] VITALS: BP 149/92; PULSE 81; RESP 20; TEMP 36.5; O2SAT 100
[2025-07-26 22:45] VITALS: BP 142/96; PULSE 71; RESP 15; O2SAT 98
[2025-07-26] MEDS: KETOROLAC 30 MG/ML VIAL (*BKC) IM (22:54)
[2025-07-26] MEDS: dexAMETHasone SOD PHOS INJ 10 MG/ML 1 ML VIAL IM (22:54)
--- OUTSIDE RECORDS SUMMARY | 2025-07-26 23:03 | XMS_ITS | Clinical Summary ---
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 Gender Identity Not on file Sexual Orientation Not on file Last Filed Vital Signs Vital Sign Reading Time Taken Comments Blood Pressure 126/74 04/25/2024 2:03 PM CDT Pulse 81 04/25/2024 2:03 PM CDT Temperature 36.8 C (98.2 F) 04/25/2024 2:03 PM CDT Respiratory Rate 16 04/25/2024 2:03 PM CDT [...] - Male 3-dos e series) 10/05/2022 09/07/2022 PHQ-2 (Physician [place]) 10/11/2024 12/30/2023 COVID-19 Vaccine (1 - 2023-2 5 season) 2025 Influenza Adult (#1) 2025 DTaP, Tdap and Td Vaccines ( 2 - Td or Tdap) 07/13/2032 07/13/2022 Hepatitis C Completed 09/22/2021 Hepatitis A Vaccines Aged Out No long er eligible based on patient's age to complete this topic Meningococcal B Vaccine Aged Out No l onger eligible based on patient's age to complete this topic Meningococcal Vaccine Aged Out No [place] mae eligible based on patient's age to complete this topic Pneumococcal Vaccine: Pediat rics (0 to 5 Years) and At-Risk Patients (6 to 49 Years) Aged Out No longer eligi ble based on patient's age to complete this topic RSV Immunizations Under 20 Months Aged Out No longer eligible based on patient's age to complete this topic Procedures Procedure Name Priority Date/Time Associated Diagnosis Comments HEPATITIS C ANTIBODY Routine 09/22/2021 9:36 AM ENERGY OPERATIONS VICE PRESIDENT Annual physical exam Encounter for medical examination to establish care General medical exam Encounter for hepatitis C screening test for low risk patient from Last 3 Months or Most Recently Relevant to Health Maintenance Results * HEPATITIS C ANTIBODY (09/22/2021 9:36 AM ENERGY OPERATIONS VICE PRESIDENT) HEPATITIS C AB NON-REACTI VE NON-REACT RAOUL 09/22/2021 9:59 PM ENERGY OPERATIONS VICE PRESIDENT [facility] Comment: ANTIBODIES TO HCV NOT DETECTED. DOES NOT EXCLUDE THE POSSIBILITY OF EXPOSURE TO HCV. 09/22/2021 9:36 AM ENERGY OPERATIONS VICE PRESIDENT France Quinonez MD LABORATORY Final Result [facility] [address] [place] [address], [id number] from Last 3 Months or Most Recently Relevant to Health Maintenance Insurance [facility] Care Teams Home Paraprofessional Relationship Specialty Start Date End Date Andra Luna APNP [address] [place], [place] [id number] PCP - General NURSE PRACTITIONER 12/30/23
--- NOTE | 2025-07-26 23:09 | ED.UPPEXIN ---
HPI - Extremity Injury (Upper) General Chief Complaint: Extremity Injury, Upper Stated Complaint: dislocated left shoulder Time Seen by Provider: 07/26/25 22:31 History of Present Illness HPI narrative: 24-year-old otherwise healthy male with remote history of methamphetamine abuse presenting to the ER for left shoulder pain. Patient states he was throwing things around in his truck for [employer] when he did overhead movement heard a loud pop and had instant pain in his left lateral shoulder. Does not know if he dislocated or knots but was able to find some relief after positioning it and holding with his other arm. No other injuries or direct trauma. No surgeries in the past. Has had previous shoulder issues on that side before and was told he needed injections but did not ever have this done. Does not follow up with the doctors he has no PCP at this time. 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 Mucous membranes moist. NECK: Supple. CHEST: [Clear to auscultation. No respiratory distress.] HEART: [Regular rate and rhythm]. No murmur heard. [Normal peripheral pulses.] ABDOMEN: [Soft, nondistended], [nontender], [No rigidity or guarding] EXTREMITIES: Tenderness to palpation over the left lateral aspect of the shoulder but no step-offs deformities or squaring off the shoulder. Range of motion is full and intact. Distal neuro vasculature intact with 2+ pulses and good range of motion of the fingers and elbow. Able to oppose each digit make a thumbs-up sign and okay side. Extremities are warm without any neurological compromise. Passive range of motion above 90? does elicit some minor pain. Overall no overlying skin changes or obvious injury noted. SKIN: Warm, dry, no rash. NEURO: [No focal deficits]. Alert and oriented [x3.] PSYCH: [Normal mood and affect.] Course Vital Signs Vital signs: Vital Signs Temperature 36.5 C 07/26/25 21:47 Pulse Rate 81 07/26/25 21:47 Respiratory Rate 20 07/26/25 21:47 Blood Pressure 149/92 H 07/26/25 21:47 Pulse Oximetry 100 07/26/25 21:47 Temperature 36.5 C 07/26/25 21:47 Pulse Rate 71 07/26/25 22:45 Respiratory Rate 15 07/26/25 22:45 Blood Pressure 142/96 H 07/26/25 22:45 Pulse Oximetry 98 07/26/25 22:45 Oxygen Delivery Room Air 07/26/25 22:45 MDM - Extremity Injury (Upper) MDM Narrative Medical decision making narrative: 24-year-old otherwise healthy male with remote history of methamphetamine abuse presenting to the ER for left shoulder pain. Patient states he was throwing things around in his truck for [employer] when he did overhead movement heard a loud pop and had instant pain in his left lateral shoulder. Does not know if he dislocated or knots but was able to find some relief after positioning it and holding with his other arm. No other injuries or direct trauma. No surgeries in the past. Has had previous shoulder issues on that side before and was told he needed injections but did not ever have this done. Does not follow up with the doctors he has no PCP at this time. Tenderness to palpation over the left lateral aspect of the shoulder but no step-offs deformities or squaring off the shoulder. Range of motion is full and intact. Distal neuro vasculature intact with 2+ pulses and good range of motion of the fingers and elbow. Able to oppose each digit make a thumbs-up sign and okay side. Extremities are warm without any neurological compromise. Passive range of motion above 90? does elicit some minor pain. Overall no overlying skin changes or obvious injury noted. Vital signs are unremarkable. X-rays were obtained to rule out fracture dislocation. X-rays independent reviewed and interpreted by radiology with no acute findings. Patient given Toradol and Decadron for analgesia. Suspect probable impingement versus musculoskeletal pain versus spasm versus less likely dislocation and relocation. Placed into a sling for comfort. Discharge home with prescription medications and referral to a primary care provider for follow-up. Medical Records Attestation: I reviewed the patient's medical records. Imaging Data Attestation: I personally reviewed and interpreted this imaging study as follows: My impression: Impressions Shoulder X-Ray 07/26/25 22:17 IMPRESSION: Radiographic examination of the left shoulder demonstrates no acute fracture or dislocation. Discharge Plan Discharge Clinical Impression: Left shoulder pain Patient Disposition: Home Condition: Stable Instructions: Antibiotic Form, How to Use a Sling (ED), Shoulder Pain (ED) Additional Instructions: Your shoulder is not fractured or dislocated but given the description of your symptoms could very well have been some irritation in the shoulder capsule or a partial dislocation and relocated. We will send you home with some a pain control medications muscle relaxers and steroids. Follow-up with primary care provider and maintain the sling for comfort. We have given you workup. Return with any worsening new emergent concerns. Patient Language: Frisian Prescriptions: New ketorolac 10 mg tablet 10 mg PO Q8H PRN (Reason: pain) 5 Days Qty: 20 0RF Rx Instructions: maximum total duration of 5 days from all oral, intranasal, or parenteral formulations prednisone 50 mg tablet 50 mg PO DAILY 5 Days Qty: 5 0RF lidocaine 5 % adhesive patch,medicated 1 patch topical DAILY Qty: 15 0RF Rx Instructions: leave on most painful area for up to 12 hrs No Action Paxlovid 300 mg (150 mg x 2)-100 mg tablets,dose pack See Rx Instructions .ROUTE .COMPLEX Qty: 30 0RF Rx Instructions: take TWO 150 mg tablets of nirmatrelvir with ONE 100 mg tablet of ritonavir twice daily for 5 days acetaminophen 500 mg capsule 1,000 mg PO Q6H PRN (Reason: pain) Qty: 20 0RF ibuprofen 200 mg capsule 600 mg PO Q8H PRN (Reason: pain) Qty: 20 0RF methocarbamol 750 mg tablet 750 mg PO HS Qty: 7 0RF amoxicillin-pot clavulanate 875-125 mg tablet 1 tablet PO Q12H Qty: 20 0RF doxycycline monohydrate 100 mg capsule 100 mg PO BID Qty: 14 0RF albuterol sulfate 90 mcg/actuation aerosol powdr breath activated 2 inh inhalation Q4-6H PRN (Reason: shortness of breath or wheezing) Qty: 1 0RF benzonatate 100 mg capsule 100 mg PO TID Qty: 12 0RF lidocaine 4 % adhesive patch,medicated 1 patch topical DAILY PRN (Reason: pain) Qty: 5 0RF methocarbamol 750 mg tablet 750 mg PO HS Qty: 7 0RF ibuprofen 600 mg tablet 600 mg PO TID PRN (Reason: pain) Qty: 30 0RF acetaminophen 500 mg capsule 1,000 mg PO Q6H PRN (Reason: pain) Qty: 30 0RF Follow-up/Referrals: PHYSICIAN,[facility] [Primary Care Provider, Internal Medicine] Mandi Wade DO [Physician, Family Practice] - 3 Days Referral Note: Establish PCP Stand Alone Forms: Work/School Release IP Time of Disposition: 22:52
[2025-07-26 23:10] VITALS: BP 139/92; PULSE 74; RESP 16; O2SAT 97
== END 2025-07-26 23:12 | disposition home or self-care (01) ==
PROVIDERS: Emergency Provider Student in an Organized Health Care Education/Training Program
DX: M25.512 Pain in left shoulder (principal); F84.0 Autistic disorder
CPT/HCPCS: 73030; 96372; 99284; A4565; J1100; J1885